=== PATIENT | female | born 1955 | race Caucasian/White ===

== ENCOUNTER → 2018-04-25 08:44 | Outpatient (CLI) | payer OTHER, SELFPAY | PROVIDERS: PCP Nurse Practitioner; Visit Provider Nurse Practitioner | DX: Z78.0 Asymptomatic menopausal state (principal) | CPT/HCPCS: 77080 ==

== ENCOUNTER → 2020-04-29 10:14 | Outpatient (CLI) | payer OTHER, SELFPAY ==
--- NOTE | 2020-04-29 10:17 | BI_ITS ---
MAMMOGRAPHY - BILATERAL SCREENING REASON FOR EXAM: Female, 64 years old. Routine annual screening examination. PERTINENT HISTORY: Aunt with breast cancer. Chronic right nipple inversion. TECHNIQUE: Digital bilateral breast laure (3D mammographic acquisition) in the CC and MLO projections. 2-D mediolateral oblique (MLO) and craniocaudad (CC) views of both breasts were obtained. CAD: Full Field Digital Mammography with Computer Added Detection was performed. COMPARISON: Comparison is made with prior outside examination dated 09/22/2015. FINDINGS: Breast Composition: The breasts are extremely dense, which lowers the sensitivity of mammography. There are no dominant masses or suspicious calcifications. No other significant abnormalities are identified. There has been no significant change since the prior study. BI/SCREEN MAMM (CAD) W/LAURE BILAT IMPRESSION: Stable bilateral screening mammogram. Yearly follow-up mammogram recommended. (A) ASSESSMENT CATEGORY: BIRADS Category 1: Negative. A letter regarding these results will be sent to the patient by the facility within 30 days. Approximately 10% of breast cancers are not detected by mammography. A normal mammogram should not delay biopsy of a clinically suspicious abnormality. [id number] Electronically Signed: Chino Ho, at 14:39 EDT , Service support ,
--- NOTE | 2020-04-29 10:20 | BD_ITS ---
STUDY: DUAL ENERGY X-RAY ABSORPTIOMETRY / DXA REASON FOR EXAM: Female, 64 years old. MANAGER VIDEO -- TAKES SYNTHROID -- TAKES CALCIUM + MULTIVITAMIN -- DOES HIGH AMOUNT OF EXERCISE -- FAMILY HX OF OSTEO- MOTHER -- NO YOU TECHNIQUE: Bone Mineral Density (BMD) measurements of lumbar spine and bilateral hips were obtained. COMPARISON: Comparison is made with prior examination dated 04/25/2018. FINDINGS: Lumbar Spine (L1-L4): g/cm2 (0.996) / T-score (-1.4) / Z-score (0.0) Findings are suggestive of osteopenia with a low fracture risk. Left Femur Total: g/cm2 (0.929) / T-score (-0.6) / Z-score (0.4) Left Femoral Neck: g/cm2 (1.006) / T-score (-0.2) / Z-score (1.1) Right Femur Total: g/cm2 (0.812) / T-score (-1.6) / Z-score (-0.5) Right Femoral Neck: g/cm2 (0.824) / T-score (-1.5) / Z-score (-0.2) The T-Scores on the most recent prior examination were: Lumbar Spine (L1-L4): There has been worsening of bone density since the previous examination. Left Femur Total: which represents a worsening of 6.1%. Right Femur Total: which represents a worsening of 6.3%. BD/Dexa Bone Density Study IMPRESSION: The patient is considered osteopenic as outlined below according to World Reed Organization (WHO) criteria with a moderate fracture risk. There has been worsening of bone density since the previous examination. Reference Information: The T-score is the number of standard deviations above or below the standard which is normal for young adults at their peak bone mineral density. The World Health Organization (WHO) interprets the T-scores as follows: Above -1 Normal bone density Between -1 and -2.5 Osteopenia Equal to / or below -2.5 Osteoporosis As a practical clinical guideline, osteopenia may be graded as follows: Mild -1 through -1.5 Moderate -1.6 through -2.0 Severe -2.1 through -2.4 The Z-score is the number of standard deviations above or below age-matched controls. A Z-score of less than -1.5 would be considered abnormal. References: 1. NIH Osteoporosis and Related Bone Diseases http://www.osteo.org 2. International Society for Clinical Densitometry http://www.iscd.org 3. National Osteoporosis Foundation http://www.nof.org Electronically Signed: Chino Ho, at 8:53 EDT , Service support ,
== END ==
PROVIDERS: PCP Nurse Practitioner; Referring Provider Nurse Practitioner; Visit Provider Nurse Practitioner
DX: Z12.31 Encounter for screening mammogram for malignant neoplasm of breast (principal); Z80.3 Family history of malignant neoplasm of breast; M85.80 Other specified disorders of bone density and structure, unspecified site
CPT/HCPCS: 77063; 77067; 77080

== ENCOUNTER → 2021-04-30 08:00 | Outpatient (CLI) | payer OTHER, SELFPAY ==
--- NOTE | 2021-04-30 08:02 | BI_ITS ---
MAMMOGRAPHY - BILATERAL SCREENING REASON FOR EXAM: Female, 65 years old. Routine annual screening examination. PERTINENT HISTORY: Aunt with breast cancer. Chronic inversion of the right nipple. TECHNIQUE: Digital bilateral breast laure (3D mammographic acquisition) in the CC and MLO projections. 2-D mediolateral oblique (MLO) and craniocaudad (CC) views of both breasts were obtained. CAD: Full Field Digital Mammography with Computer Added Detection was performed. COMPARISON: Comparison is made with prior study 04/29/2020. FINDINGS: Breast Composition: The breasts are extremely dense, which lowers the sensitivity of mammography. There are no dominant masses or suspicious calcifications. No other significant abnormalities are identified. There has been no significant change since the prior study. BI/SCRN MAMM (CAD)W/LAURE BILAT IMPRESSION: Stable bilateral screening mammogram. Yearly follow-up mammogram recommended. (A) ASSESSMENT CATEGORY: BIRADS Category 1: Negative. A letter regarding these results will be sent to the patient by the facility within 30 days. Approximately 10% of breast cancers are not detected by mammography. A normal mammogram should not delay biopsy of a clinically suspicious abnormality. [id number] Electronically Signed: Chino Ho MD at 8:48 EDT , Service support ,
== END ==
PROVIDERS: PCP Nurse Practitioner; Referring Provider Nurse Practitioner; Visit Provider Nurse Practitioner
DX: Z12.31 Encounter for screening mammogram for malignant neoplasm of breast (principal)
CPT/HCPCS: 77063; 77067

== ENCOUNTER 2021-11-16 05:51 | Day surgery (SDC) | payer OTHER, SELFPAY ==
[2021-11-16] VITALS (7 sets, daily range): BP systolic 100–128; BP diastolic 57–76; PULSE 56–71; RESP 14–16; TEMP 36.2–36.3; O2SAT 97–100; BMI 19.6
[2021-11-16] MEDS: Lactated Ringers 1,000 ML 15 ML IV (06:27)
--- NOTE | 2021-11-16 07:03 | PCM.HP.BLA ---
History and Physical Date of Admission: 11/16/21 65 F who presents to the office today for a positive Cologuard. She had a colonoscopy back when she was 52. She has been doing Cologuard every couple years and they have all been negative. She recently took a Cologuard and it was positive. She does not have any problems with her bowels. She goes to the bathroom every day as long she takes fiber Gummies and eats a balanced diet. She is not having any bleeding. She did have a hemorrhoidectomy multiple years ago and since then has always paid really close attention to her bowels. Her weight has been stable. She has no family history of colon cancer. She does have a family history of colon polyps. All other 16 review of systems are negative except as per in positive mentioned HPI. ROS Const Constitutional: No anorexia, fatigue, fever(s), weight change or sleep problems Eyes Eyes: No change in vision ENT ENT: Positive for hearing loss; No abnormal hearing, difficulty swallowing, tongue swelling or throat swelling Resp Respiratory: No cough or shortness of breath Cardio Cardiology: No chest pain at rest, chest pain with exertion, shortness of breath or dyspnea on exertion Gastro GI: No difficulty swallowing Genitourinary-Female: No difficulty urinating or burning urination Musc Musculoskeletal: No joint pain, joint swelling, muscle weakness or decreased muscle mass Skin Skin: No hair loss in leg, yellowing of the eye, itchy eyes, rash, skin ulcer or skin swelling Neuro Neurology: No abnormal hearing, abnormal movements, confusion, unsteady gait/balance or memory loss Psych Psychiatric: No anxiety, No confusion and No memory loss Endo Endocrine: No fatigue or weight change Aller/Imm Allergy/Immunologic: No itchy eyes, throat swelling or tongue swelling Beto/Lymp Hematologic/Lymphatic: No easy bleeding, easy bruising or enlarged lymph nodes Exam Const General: cooperative and comfortable Nutritional Appearance: average body habitus and well nourished HENAR Head: normal to inspection Ears: hearing grossly normal bilaterally Nose: external nose normal Face and sinus: normal facial exam Mouth: oral mucosae normal Throat: posterior oropharynx normal Eyes General: appearance normal, both eyes and all related structures Neck Neck: normal visual inspection Chest Chest palpation & inspection: normal inspection of the chest and normal palpation of entire chest wall Resp Effort & Inspection: normal respiratory effort Auscultation: Bilateral: Clear to Auscultation Cardio Palpation: normal PMI Rate: regular rate Rhythm: regular rhythm GI Inspection: normal to inspection Auscultation: normal bowel sounds Percussion: normal to percussion Palpation: no hepatosplenomegaly Skin General: no rashes or lesions noted Neuro General: patient alert Extrem General: normal to inspection Psych Affect: normal affect Assessment and Plan Assessment and Plan (1) Positive colorectal cancer screening using Cologuard test: Status: Acute Plan - Dr. Sandy Friend, DO: Patient does not wish to undergo a colonoscopy at this time due to the pandemic. I told her that we can reassess in 3 months. At that time if she was to have a colonoscopy to evaluate her colon I would be happy to help her at that time. If anything changes she is to call and she will be seen immediately. I have re-examined the patient. There are no clinical changes since date of exam.
--- NOTE | 2021-11-16 07:34 | OP.COLON_ITS ---
Patient Name: Ashtyn Raman Procedure Date: 11/16/2021 7:01 AM Date of : 1955 Age: 66 Procedure: Colonoscopy Indications: Screening for colorectal malignant neoplasm Providers: Du Brush DO Medicines: See the Anesthesia note for documentation of the administered medications Patient Profile: This is a 66 year old female. Refer to note in patient chart for documentation of history and physical. Last Colonoscopy: more than 10 years ago. Complications: No immediate complications. Procedure: Pre-Anesthesia Assessment: - Prior to the procedure, a History and Physical was performed, and patient medications and allergies were reviewed. The patient is competent. The risks and benefits of the procedure and the sedation options and risks were discussed with the patient. All questions were answered and informed consent was obtained. Patient identification and proposed procedure were verified by the physician in the pre-procedure area. Mental Status Examination: alert and oriented. Airway Examination: normal oropharyngeal airway and neck mobility. Respiratory Examination: clear to auscultation. CV Examination: normal. Prophylactic Antibiotics: The patient does not require prophylactic antibiotics. Prior Anticoagulants: The patient has taken no previous anticoagulant or antiplatelet agents. ASA Grade Assessment: II - A patient with mild systemic disease. After reviewing the risks and benefits, the patient was deemed in satisfactory condition to undergo the procedure. The anesthesia plan was to use moderate sedation / analgesia (conscious sedation). Immediately prior to administration of medications, the patient was re-assessed for adequacy to receive sedatives. The heart rate, respiratory rate, oxygen saturations, blood pressure, adequacy of pulmonary ventilation, and response to care were monitored throughout the procedure. The physical status of the patient was re-assessed after the procedure. After I obtained informed consent, the scope was passed under direct vision. Throughout the procedure, the patient's blood pressure, pulse, and oxygen saturations were monitored continuously. The colonoscope was introduced through the anus and advanced to the cecum, identified by appendiceal orifice and ileocecal valve. The colonoscopy was performed without difficulty. The patient tolerated the procedure well. The quality of the bowel preparation was good. Moderate Sedation: Moderate (conscious) sedation was administered by the endoscopy nurse and supervised by the endoscopist. The patient's oxygen saturation, heart rate, blood pressure and response to care were monitored. Total physician intraservice time was 15 minutes. Scope In: 7:12:10 AM Scope Out: 7:29:28 AM Total Procedure Duration Time 0 hours 17 minutes 18 seconds Findings: The perianal and digital rectal examinations were normal. The exam was otherwise without abnormality on direct and retroflexion views. Impression: - The examination was otherwise normal on direct and retroflexion views. - No specimens collected. Recommendation: - Discharge patient to home. - Resume previous diet. - Continue present medications. - Repeat colonoscopy in 10 years for screening purposes. - Return to primary care physician. Procedure Code(s): --- Professional --- G0121, Colorectal cancer screening; colonoscopy on individual not meeting criteria for high risk 35689, 59, Moderate sedation services provided by the same physician or other qualified health youth care professional performing the diagnostic or therapeutic service that the sedation supports, requiring the presence of an independent trained observer to assist in the monitoring of the patient's level of consciousness and physiological status; initial 15 minutes of intraservice time, patient age 5 years or older CPT copyright 2017 [employer]. All rights reserved. The codes documented in this report are preliminary and upon sitecore developer review may be revised to meet current compliance requirements. Du Brush DO 11/16/2021 7:33:35 AM This report has been signed electronically. Number of Addenda: 1 Note Initiated On: 11/16/2021 7:01 AM Addendum Number: 1 Addendum Date: 06/02/2022 6:31:47 AM MAC was used as sedation for this procedure. Du Brush DO 06/02/2022 6:31:51 AM This report has been signed electronically.
--- NOTE | 2021-11-16 07:35 | OP.CCLET_ITS ---
06/02/2022 Julieta Allen, CEM [address] [place] [address] Re : Colonoscopy procedure for Ashtyn Raman Dear Ms. Allen This procedure was performed on Tuesday, November 16, 2021. My impressions and recommendations are as follows: Impressions : - The examination was otherwise normal on direct and retroflexion views. - No specimens collected. Recommendations : - Discharge patient to home. - Resume previous diet. - Continue present medications. - Repeat colonoscopy in 10 years for screening purposes. - Return to primary care physician. My findings are described in the full procedure note, which is enclosed. If I can be of further assistance, please feel free to contact me at . Sincerely, Du Brush, 11/16/2021 7:33:35 AM This report has been signed electronically.
== END 2021-11-16 23:59 | disposition home or self-care (01) ==
LOC: EN 05:52 → AC 05:53
PROVIDERS: PCP Nurse Practitioner; Referring Provider Nurse Practitioner; Visit Provider Internal Medicine Gastroenterology
PROC: 0DJD8ZZ Inspection of Lower Intestinal Tract, Via Natural or Artificial Opening Endoscopic (ICD-10-PCS; CPT 45378; principal; 2021-11-16 06:55)
DX: Z12.11 Encounter for screening for malignant neoplasm of colon (principal)
CPT/HCPCS: 45380; J7120; J2405

== ENCOUNTER 2022-03-09 15:15 | Emergency (ER) | payer OTHER, SELFPAY ==
[2022-03-09 15:15] VITALS: BP 121/77; PULSE 57; RESP 16; TEMP 36.6; O2SAT 99; BMI 24.5
--- NOTE | 2022-03-09 15:27 | EKG12_ITS ---
Test Reason : BACK Blood Pressure : / mmHG Vent. Rate : 063 BPM Atrial Rate : 063 BPM P-R Int : 162 ms QRS Dur : 076 ms QT Int : 416 ms P-R-T Axes : 039 054 055 degrees QTc Int : 425 ms Normal sinus rhythm Normal ECG Confirmed by ROHIT CHASE, EMILY ([id number]), pictures editor MERY TAFOYA ([id number]) on 03/11/2022 9:04:39 AM Referred By: REBECCA/STAN Confirmed By:EMILY BEE MD
--- NOTE | 2022-03-09 15:27 | CT_ITS ---
ACR Level 3 findings have been noted. An addendum which confirms receipt of the report will follow. EXAM: CT CHEST, ABDOMEN AND PELVIS WITHOUT INTRAVENOUS CONTRAST CLINICAL INDICATION: back pain TECHNIQUE: Helically acquired images were obtained of the chest, abdomen and pelvis without intravenous contrast. This CT exam was performed using one or more of the following dose reduction techniques: automated exposure control, adjustment of the mA and/or kV according to patient size, and/or use of iterative reconstruction technique. This report was created using Auto [employer] report generation technology. RADIATION DOSE: CTDIvol = 7.14 mGy, DLP = 614.12 mGy-cm COMPARISON: None. FINDINGS: CHEST: LUNGS AND PLEURAL SPACES: There is a 3.6 mm right upper lobe nodule. SE:2 IM: 31. ACR Lung CT Screening Reporting T Data System (Lung-RADS) score: 2S - Benign Appearance or Behavior. Additional clinically significant or potentially clinically significant findings are described. Recommend continued annual screening with low-dose CT (LDCT) in 12 months. There is a 42 x 38 mm right middle lobe mass. SE: 2 IM: 72. This is concerning for neoplasm. ACR Lung CT Screening Reporting T Data System (Lung-RADS) score: 4XS - Very Suspicious. There are features or imaging findings that increase the suspicion of malignancy and additional clinically significant or potentially clinically significant findings described in this report. Recommend chest CT with or without contrast, PET/CT and/or tissue sampling depending on the probability of malignancy and comorbidities. PET/CT may be used when there is a >=8 mm solid component. For new large nodules that develop on an annual repeat screening CT, a 1 month LDCT may be recommended to address potentially infectious or inflammatory conditions. No pleural effusion or thickening. No pneumothorax. HEART: Unremarkable. Heart size is normal. No pericardial effusion. No significant coronary artery calcifications. MEDIASTINUM: Calcified mediastinal lymph nodes. Esophagus is unremarkable. No hiatal hernia. THYROID: Unremarkable. No thyroid lesions. ABDOMEN: LIVER: Unremarkable. Homogeneous. GALLBLADDER AND BILE DUCTS: Unremarkable. No calcified gallstones. No gallbladder distention or wall edema. No intra- or extrahepatic biliary ductal dilation. PANCREAS: Unremarkable. No focal cystic mass. SPLEEN: Unremarkable. Normal size without focal cystic or solid mass. ADRENALS: Unremarkable. No nodules. KIDNEYS AND URETERS: Unremarkable. Normal renal size and position. No hydronephrosis. STOMACH AND BOWEL: Unremarkable. No stomach or bowel distention. No focal inflammatory change. PELVIS: APPENDIX: No evidence of acute appendicitis. BLADDER: Unremarkable. REPRODUCTIVE: Unremarkable as visualized. No mass. CHEST, ABDOMEN and PELVIS: INTRAPERITONEAL SPACE: Trace free fluid in the pelvis. The source is not identified. No free air. BONES/JOINTS: Pathologic fracture of T12 with less than 50% compression. There may be mass extending into the spinal canal which may be causing spinal stenosis and anteriorly. But this is hard to assess due to lack of contrast. This can be better assessed with MRI of the spine with contrast. Grade 1 anterolisthesis of L3 on L4. No suspicious lytic or blastic abnormality. SOFT TISSUES: Unremarkable. No discrete abdominal or pelvic wall hernia. VASCULATURE: Unremarkable. Aorta is non-dilated. LYMPH NODES: See above. CT/CT Chest, Abd, Pelvis WO Cont IMPRESSION: 1. There is a 3.6 mm right upper lobe nodule. SE:2 IM: 31. ACR Lung CT Screening Reporting T Data System (Lung-RADS) score: 2S - Benign Appearance or Behavior. Additional clinically significant or potentially clinically significant findings are described. Recommend continued annual screening with low-dose CT (LDCT) in 12 months. 2. There is a 42 x 38 mm right middle lobe mass. SE: 2 IM: 72. This is concerning for neoplasm. ACR Lung CT Screening Reporting T Data System (Lung-RADS) score: 4XS - Very Suspicious. There are features or imaging findings that increase the suspicion of malignancy and additional clinically significant or potentially clinically significant findings described in this report. Recommend chest CT with or without contrast, PET/CT and/or tissue sampling depending on the probability of malignancy and comorbidities. PET/CT may be used when there is a >=8 mm solid component. For new large nodules that develop on an annual repeat screening CT, a 1 month LDCT may be recommended to address potentially infectious or inflammatory conditions. 3. Pathologic fracture of T12 with less than 50% compression. There may be mass extending into the spinal canal which may be causing spinal stenosis and anteriorly. But this is hard to assess due to lack of contrast. This can be better assessed with MRI of the spine with contrast. 4. Trace free fluid in the pelvis. The source is not identified. Non standard communication findings protocol was initiated. Electronically Signed: Emigdio Boogie MD at 16:44 EDT ,
[2022-03-09] MEDS: Ondansetron 4 MG/2 ML Vial IV (15:42)
[2022-03-09] MEDS: Morphine 4 MG/ML Syringe IV ×2 (15:42→20:08)
[2022-03-09 15:48] LABS: Absolute Lymphocyte Count 1.17 X10^3/uL (0.83-4.51); Absolute Neutrophil Count 6.3 X10^3/uL (2.0-7.7); Basophil# 0.06 X10^3/uL; Basophil% 0.7 % (0-1); Eosinophil# 0.13 X10^3/uL; Eosinophils% 1.6 % (0-5); Hematocrit 43.3 % (37-47); Hemoglobin 14.8 g/dL (12.0-15.0); Lymphocyte # 1.17 X10^3/ul (0.83-4.51); Lymphocyte % 14.6 % (19-41); Mean Corp Hgb Conc 34.2 g/dL (32-36); Mean Corpuscular Hgb 32.3 pg (27.0-32.0); Mean Corpuscular Volume 94.5 fL (81-99); Mean Platelet Vol. 8.9 fl (6.2-12.0); Monocyte# 0.39 X10^3/uL; Monocyte% 4.9 % (0-10); NRBC Flagged by Analyzer 0 % (0-5); Neutrophil # 6.26 X10^3/uL (2.7-7.7); Neutrophil % 77.8 % (47-70); Platelet Count 371 K/mm3 (150-450); RBC Distribution Width CV 12.2 % (11.6-14.6); RBC Distribution Width SD 42.7 fl (35.1-43.9); Red Blood Count 4.58 M/mm3 (4.2-5.4)
[2022-03-09 16:10] LABS: ALB/GLOB Ratio 1.1 RATIO (0.9-2.4); AST(SGOT) 29 U/L (15-37); Alanine Aminotransfer ALT/SGPT 24 U/L (13-56); Albumin, Serum 3.9 g/dL (3.2-5.0); Alkaline Phosphatase 59 U/L (45-117); Anion Gap 9 (5-15); BUN 11 mg/dL (7-18); BUN/Creat Ratio 12.1 RATIO (10-20); Calcium,Total 9.2 mg/dL (8.5-10.1); Chloride 96 mmol/L (98-107); Creatinine, Serum 0.91 mg/dL (0.55-1.02); EST Glomerular Filtration Rate 66 mL/min (>60); Est Glom Filt Rate - Afr Amer 80 mL/min (>60); Estimated Creatinine Clearance 53.93 ml/min; Globulin 3.5 g/dL (2.2-4.2); Glucose 99 mg/dL (74-106); Potassium 4.4 mmol/L (3.5-5.1); Protein, Total 7.4 g/dL (6.4-8.2); Sodium Level 130 mmol/L (136-145)
[2022-03-09] MEDS: dexAMETHasone 10 MG/ML Vial IV (18:00)
[2022-03-09] MEDS: diazePAM 2 MG Tablet PO (18:16)
[2022-03-09 19:35] VITALS: BP 130/69; PULSE 61; RESP 18; TEMP 36.2; O2SAT 97
--- NOTE | 2022-03-09 22:00 | EDS_ITS ---
HPI History of Present Illness Chief Complaint: Back Narrative Narrative: 66-year-old female presenting with back pain. She describes it as a center of her back. She states has been having back problems for about a year the never really been that bad. She states that for the last couple of months has been experiencing more pain. She denies any trauma. She has not seen her primary care physician. She is seen chiropractics and she is also had soft tissue massage and none of these are helping. She denies loss of bladder or bowel control. She denies saddle anesthesia. Up until today she was walking without difficulty but most the day she has had to lay down due to the pain in the middle lower back. She denies paresthesias but is complaining of spasms mostly in the back radiating to her legs. She also states that at times the pain radiates around her lower ribs. No fever, chills. [facility]SH [facility] Medical History Former smoker History of UTI Leg cramps Multinodular goiter Post-menopausal Thyroid disease Tinnitus Wears contact lenses Wears glasses Home Medications levothyroxine 137 mcg tablet (Synthroid) 137 mcg PO MOTUTHFRSA 05/26/21 [History Last Taken 03/09/22] M 11/12/21 [History Last Taken Unknown] Pterospilbene 11/12/21 [History Last Taken Unknown] Allergy/AdvReac Type Severity Reaction Status Date / Time nickel Allergy Intermediate Swelling Verified 03/09/22 15:17 sulfamethoxazole Allergy Intermediate lip Verified 03/09/22 15:17 [From Bactrim] swelling trimethoprim [From Bactrim] Allergy Intermediate lip Verified 03/09/22 15:17 swelling thimerosal Allergy Swelling Verified 03/09/22 15:17 Surgical History History of hemorrhoidectomy History of thyroidectomy Hx of knee surgery Social History Smoking Status: Former smoker ROS ROS ED Constitutional Constitutional ED: Denies chills or fever(s) Eyes Eyes: Denies change in vision ENT ENT ED: Denies rhinorrhea Cardiovascular Cardiovascular: Reports chest pain; Denies palpitations Respiratory/Chest Respiratory/Chest: Denies dyspnea or dyspnea on exertion Gastrointestinal Gastrointestinal: Denies abdominal pain or constipation Genitourinary Genitourinary ED: Denies dysuria or hematuria Musculoskeletal Musculoskeletal: Reports back pain Integumentary Denies abscess or Abrasions Neurologic Neurologic: Denies headache(s) or paresthesias Psychiatric Psychiatric: Denies anxiety or depression EXAM Physical Exam Const Vital Signs: 03/09/22 15:15 03/09/22 19:35 Temperature 97.8 F 97.1 F L Temperature Source Temporal Temporal Pulse Rate 57 L 61 Respiratory Rate 16 18 Blood Pressure 121/77 H 130/69 H Blood Pressure Mean 91 89 Pulse Ox 99 97 Oxygen Delivery Method Room Air Room Air Positive well nourished General Appearance ED: NAD; Negative for pallor HEENT Reports moist mucous membranes Eyes PERRL and EOMs intact bilaterally Neck no lymphadenopathy Resp normal respiratory effort and clear to auscultation bilaterally Cardio regular rate and regular rhythm GI normal to inspection, nondistended, normoactive bowel sounds Back/Spine Back/Spine Narrative: Tenderness to palpation of the midline spine approximately T11-T12. No bruising, rash. Neuro oriented x3 and no sensory deficits noted Sensorium / Orientation: alert Motor Exam: strength 5/5 throughout Deep Tendon Reflexes: Rt Patellar (L4): 2+ and Lt Patellar (L4): 2+ Deep Tendon Reflexes Back: Rt Patellar (L4): 2+ and Lt Patellar (L4): 2+ Psych mental status grossly normal Attitude: No agitated Skin no rashes or lesions noted General Skin Exam: Negative for jaundice or pallor MDM MDM MDM Narrative Medical decision making narrative: 66-year-old female presenting with back pain. She has not had any imaging as of yet. I did give her morphine and Zofran and obtain lab work. Her CBC and BMP are fairly unremarkable with exception of a sodium of 130. I did perform an EKG due to the location of the pain and on my interpretation this is a normal sinus rhythm with ventricular rate of 63 bpm without sign of ischemic change or dysrhythmia. High-sensitivity troponin is negative. Because the patient was unable to stand and ambulate I did send her to CT of his chest abdomen pelvis. CT of the chest abdomen pelvis shows new masses in the right upper lung and right midlung.Patient has no history of cancer.Pathologic fracture of T12 with less than 50% compression. There may be mass extending into the spinal canal which may be causing spinal stenosis and anteriorly. Patient was given dexamethasone 10 mg IV and also given diazepam 2 mg p.o. I spoke with [facility] as the patient initially wanted to go to [facility] for her care because she states her pain friend had great care at [facility]. I spoke with the transfer line at [facility] and they did reach out to their physicians to try to arrange transport. In the interim I spoke with heme-onc and was told by them I think they could manage the radiation therapy here if she needed it but recommended an MRI and admission. I did attempt to admit the patient to the hospitalist however this point the hospital stated that they do not have surgical backup but I would need to talk to an orthopedist. I spoke with Dr. Mims who stated that he does not really do oncology related orthopedics. He recommended transfer. At this point the patient changed her mind from [facility] and wanted to go to [facility]. Discussed the case at length with the neurosurgeon Dr. Lazo who then referred me to the medicine attending Dr. Berg and I did review this again with Dr. Berg. Accepted transport. Patient required more pain medication and she was given for morphine. I discussed with her that there may be a delay in transport if we cannot get a bed and she is amenable to waiting for transport and leaving clinic. She does not have any signs of cauda equina syndrome or any red flag signs or symptoms. She does need probably radiation therapy and neurosurgical consult and oncology consult. Patient remained stable in ER. She will be transported with a bed assignment as available. Impression: 1. T 12 pathologic compression fracture 2. Lung mass right upper lobe 3. Lung mass right middle lobe 4. Hyponatremia Lab Data Attestation: I reviewed the patient's lab results. Labs: Laboratory Results - last 24 hr 03/09/22 03/09/22 15:35 15:35 WBC 8.0 RBC 4.58 Hgb 14.8 Hct 43.3 MCV 94.5 MCH 32.3 H MCHC 34.2 RDW Std Deviation 42.7 RDW Coeff of [place] 12.2 Plt Count 371 MPV 8.9 Immature Gran % (Auto) 0.400 Neut % (Auto) 77.8 H Lymph % (Auto) 14.6 L [place] % (Auto) 4.9 Eos % (Auto) 1.6 Baso % (Auto) 0.7 Absolute Neuts (auto) 6.3 Absolute Lymphs (auto) 1.17 Nucleated RBC % 0 Sodium 130 L Potassium 4.4 Chloride 96 L Carbon Dioxide 25.0 Anion Gap 9 BUN 11 Creatinine 0.91 Estim Creat Clear Calc 53.93 Est GFR (MDRD) Af Amer 80 Est GFR (MDRD) Non-Af 66 BUN/Creatinine Ratio 12.1 Glucose 99 Calcium 9.2 Total Bilirubin 0.90 AST 29 ALT 24 Alkaline Phosphatase 59 Total Protein 7.4 Albumin 3.9 Globulin 3.5 Albumin/Globulin Ratio 1.1 Radiography Diagnostic Testing: Clinical Impression(s) from Imaging Studies Chest/Abdomen/Pelvis CT 03/09/22 15:27 IMPRESSION: 1. There is a 3.6 mm right upper lobe nodule. SE:2 IM: 31. ACR Lung CT Screening Reporting T Data System (Lung-RADS) score: 2S - Benign Appearance or Behavior. Additional clinically significant or potentially clinically significant findings are described. Recommend continued annual screening with low-dose CT (LDCT) in 12 months. 2. There is a 42 x 38 mm right middle lobe mass. SE: 2 IM: 72. This is concerning for neoplasm. ACR Lung CT Screening Reporting T Data System (Lung-RADS) score: 4XS - Very Suspicious. There are features or imaging findings that increase the suspicion of malignancy and additional clinically significant or potentially clinically significant findings described in this report. Recommend chest CT with or without contrast, PET/CT and/or tissue sampling depending on the probability of malignancy and comorbidities. PET/CT may be used when there is a >=8 mm solid component. For new large nodules that develop on an annual repeat screening CT, a 1 month LDCT may be recommended to address potentially infectious or inflammatory conditions. 3. Pathologic fracture of T12 with less than 50% compression. There may be mass extending into the spinal canal which may be causing spinal stenosis and anteriorly. But this is hard to assess due to lack of contrast. This can be better assessed with MRI of the spine with contrast. 4. Trace free fluid in the pelvis. The source is not identified. Non standard communication findings protocol was initiated. Electronically Signed: Emigdio Boogie MD at 16:44 EDT , ADDENDUM: 03/09/22 1709 IMPRESSION: 1. There is a 3.6 mm right upper lobe nodule. SE:2 IM: 31. ACR Lung CT Screening Reporting T Data System (Lung-RADS) score: 2S - Benign Appearance or Behavior. Additional clinically significant or potentially clinically significant findings are described. Recommend continued annual screening with low-dose CT (LDCT) in 12 months. 2. There is a 42 x 38 mm right middle lobe mass. SE: 2 IM: 72. This is concerning for neoplasm. ACR Lung CT Screening Reporting T Data System (Lung-RADS) score: 4XS - Very Suspicious. There are features or imaging findings that increase the suspicion of malignancy and additional clinically significant or potentially clinically significant findings described in this report. Recommend chest CT with or without contrast, PET/CT and/or tissue sampling depending on the probability of malignancy and comorbidities. PET/CT may be used when there is a >=8 mm solid component. For new large nodules that develop on an annual repeat screening CT, a 1 month LDCT may be recommended to address potentially infectious or inflammatory conditions. 3. Pathologic fracture of T12 with less than 50% compression. There may be mass extending into the spinal canal which may be causing spinal stenosis and anteriorly. But this is hard to assess due to lack of contrast. This can be better assessed with MRI of the spine with contrast. 4. Trace free fluid in the pelvis. The source is not identified. Non standard communication findings protocol was initiated. N.B. : Steve Salgado MD, confirmed on 03/09/2022 17:02:38 (ET) that the healthcare facility has received the radiology report. Electronically Signed: Emigdio Boogie MD at 16:44 EDT , Discharge Plan Triage Chief Complaint: Back ED Provider: Steve Ward Dx/Rx/DC Orders Prescriptions: No Action levothyroxine [Synthroid] 137 mcg tablet 137 mcg PO MOTUTHFRSA (DME) M (DME) Pterospilbene Primary Care Provider: Julieta Allen INTERNATIONAL MARKETING COORDINATOR Referrals: Julieta Allen NP, INTERNATIONAL MARKETING COORDINATOR-C [Primary Care Provider] -
[2022-03-10] VITALS (7 sets, daily range): BP systolic 107–148; BP diastolic 63–78; PULSE 58–73; RESP 14–18; O2SAT 94–99
--- NOTE | 2022-03-10 03:56 | ED.RN ---
patient is accepted at [facility], we are still waiting on a bed assignment, the patient was accepted at 7:45pm.
--- NOTE | 2022-03-10 04:01 | ED.RN ---
THE ACCEPTING DOCTOR IS DR. GUERO JAMES, INTERNAL MEDICINE
[2022-03-10] MEDS: Ondansetron 4 MG/2 ML Vial IV (05:23)
[2022-03-10] MEDS: Morphine 4 MG/ML Syringe IV ×3 (05:26→13:28)
[2022-03-10] MEDS: diazePAM 2 MG Tablet PO (07:07)
--- NOTE | 2022-03-10 08:00 | MRI_ITS ---
STUDY: MRI THORACIC SPINE WITH AND WITHOUT CONTRAST REASON FOR EXAM: Female, 66 years old. pain, F/U ABNORMAL CT TECHNIQUE: IV 13cc dotarem was administered for the contrast portion of the examination. COMPARISON: None. FINDINGS: Normal kyphosis of the thoracic spine. There is no substantial scoliosis. T1-2, T2-3, T3-4, T4-5, T5-6, T6-7, T7-8, T8-9, T9-10, T10-11, T11-12: Normal endplates. Normal disc hydration, heights and morphology of the corresponding intervertebral discs. Normal central canal and intervertebral neural foramina at the corresponding levels. There is an acute mild wedge compression fracture of the T7 vertebral body with 5 mm retropulsion of the endplate into the spinal canal producing moderate spinal stenosis with abutment of the spinal cord but CSF behind the cord. There is complete marrow replacement of the vertebral body with irregular contrast enhancement possibly consistent with pathologic compression fracture. However, other marrow replacing lesions are not identified in thoracic spine. Bone scan would be useful. Normal visualized thoracic cord. Normal conus medullaris that terminates at the L1.. The soft tissue structures are unremarkable. There is no enhancing abnormality. MRI/Spine Thoracic W/WO Contrast IMPRESSION: Suspect acute mild pathologic compression fractures of the T7 vertebral bodies of what 5 mm retropulsion into the spinal canal producing moderate spinal stenosis with abutment of the central spinal cord. Correlation with bone scan would be useful to evaluate further bone lesions. Electronically Signed: Tashi Noland MD at 10:59 EDT ,
--- NOTE | 2022-03-10 08:00 | MRI_ITS ---
STUDY: MRI LUMBAR SPINE WITH AND WITHOUT CONTRAST REASON FOR EXAM: Female, 66 years old. pain TECHNIQUE: Standardized fat and water weighted pulse sequences were obtained in the sagittal and axial planes. 13 CC IV DOTAREM was administered for the contrast portion of the examination. COMPARISON: None FINDINGS: T12-L1: Normal endplates. Normal disc height, hydration and morphology. Normal bilateral facet joints. Normal central canal and bilateral lateral recesses. Normal bilateral intervertebral neural foramina. Normal lumbar lordosis. There is no substantial scoliosis. Normal conus medullaris that terminates at the L1. L1-2: Normal endplates. Normal disc height, hydration and morphology. Normal bilateral facet joints. Normal central canal and bilateral lateral recesses. Normal bilateral intervertebral neural foramina. L2-3: Small right paracentral and foraminal disc protrusion reduces mild right lateral recess stenosis and mild right neural foraminal stenosis. L3-4: Mild bilateral facet hypertrophy and ligament flavum hypertrophy with fluid of facet joints consistent with instability. 2 mm of anterolisthesis of L3 on L4 with a mild bilobed disc protrusion produces mild spinal stenosis and moderate bilateral neural foraminal stenosis. L4-5: Annular tear of the left foraminal portion of the disc but no disc protrusion, spinal stenosis, or neural foraminal stenosis. L5-S1: Normal endplates. Normal disc height, hydration and morphology. Normal bilateral facet joints. Normal central canal and bilateral lateral recesses. Normal bilateral intervertebral neural foramina. Normal visualized sacral ala. Normal visualized paraspinous soft tissue structures. There is no demonstrated abnormal enhancement. MRI/Spine Lumbar W/WO Contrast IMPRESSION: Multilevel degenerative changes, as described above. No MR evidence of metastatic disease. Electronically Signed: Tashi Noland MD at 11:03 EDT ,
--- NOTE | 2022-03-10 09:42 | NURSING ---
[facility] H 70 ROOM 23 NURSE TO NURSE [phone] JACOB MEHTA, TRANSFER LINE
--- NOTE | 2022-03-10 09:59 | NURSING ---
CALLED [facility], ETA IS 2 HRS
--- NOTE | 2022-03-10 13:50 | ED.RN ---
Patients transfer form has listed that patient is going to [facility]. Patients Spouse was informed patient was being transferred to [facility]. Physicians ambulance dispatched called back questioning where patient was being transferred to. Facility number listed on transfer form called by this RN. BRANDON Johnson confirmed they are expecting patient at [facility]. Dispatched made aware of confusion at this time. No further questions at this time.
== END 2022-03-10 13:41 | disposition short-term general hospital (02) ==
LOC: ED 16:07
PROVIDERS: Emergency Provider Student in an Organized Health Care Education/Training Program; PCP Nurse Practitioner; Visit Provider Student in an Organized Health Care Education/Training Program
DX: M84.48XA Pathological fracture, other site, initial encounter for fracture (principal); E87.1 Hypo-osmolality and hyponatremia; J34.89 Other specified disorders of nose and nasal sinuses; R07.81 Pleurodynia; R91.8 Other nonspecific abnormal finding of lung field; Z87.891 Personal history of nicotine dependence; X58.XXXA Exposure to other specified factors, initial encounter
CPT/HCPCS: 71250; 72157; 72158; 74176; 80053; 85025; 87811; 93005; 96361; 96374; 96375; 96376; 99285; A9575; J7040; A4216; J2405

== ENCOUNTER → 2022-05-20 | Outpatient (CLI) | payer OTHER, SELFPAY ==
--- NOTE | 2022-05-20 14:31 | BI_ITS ---
MAMMOGRAPHY - BILATERAL SCREENING REASON FOR EXAM: Female, 66 years old. Routine annual screening examination. PERTINENT HISTORY: Aunt with breast cancer. Chronic right nipple inversion. TECHNIQUE: Digital bilateral breast laure (3D mammographic acquisition) in the CC and MLO projections. 2-D mediolateral oblique (MLO) and craniocaudad (CC) views of both breasts were obtained. CAD: Full Field Digital Mammography with Computer Added Detection was performed. COMPARISON: Comparison is made with prior study 04/30/2021 and 04/29/2020. FINDINGS: Breast Composition: The breasts are extremely dense, which lowers the sensitivity of mammography. There are no dominant masses or suspicious calcifications. No other significant abnormalities are identified. There has been no significant change since the prior study. BI/SCRN MAMM (CAD)W/LAURE BILAT IMPRESSION: Stable bilateral screening mammogram. Yearly follow-up mammogram recommended. (A) ASSESSMENT CATEGORY: BIRADS Category 1: Negative. A letter regarding these results will be sent to the patient by the facility within 30 days. Approximately 10% of breast cancers are not detected by mammography. A normal mammogram should not delay biopsy of a clinically suspicious abnormality. [id number] Electronically Signed: Chino Ho MD at 15:23 EDT ,
--- NOTE | 2022-05-20 14:37 | BD_ITS ---
STUDY: DUAL ENERGY X-RAY ABSORPTIOMETRY / DXA REASON FOR EXAM: Female, 66 years old. OSTEO. The patient is status post menopausal. TECHNIQUE: Bone Mineral Density (BMD) measurements of lumbar spine and bilateral hips were obtained. COMPARISON: Comparison is made with prior study dated 04/29/2020. FINDINGS: Lumbar Spine (L1-L4): g/cm2 (0.910) / T-score (-1.2) / Z-score (0.5) Findings are suggestive of osteopenia with a low fracture risk. Left Femur Total: g/cm2 (0.844) / T-score (-0.8) / Z-score (0.4) Left Femoral Neck: g/cm2 (0.861) / T-score (0.1) / Z-score (1.6) Right Femur Total: g/cm2 (0.758) / T-score (-1.5) / Z-score (-0.3) Right Femoral Neck: g/cm2 (0.631) / T-score (-2.0) / Z-score (-0.5) The T-Scores on the most recent prior examination were: Lumbar Spine (L1-L4): There has been worsening of bone density since the previous examination. Left Femur Total: which represents a worsening of 2.5%. Right Femur Total: which represents an improvement of 0.9%. BD/Dexa Bone Density Study IMPRESSION: The patient is considered osteopenic as outlined below according to World Reed Organization (WHO) criteria with a moderate fracture risk. There has been worsening of bone density since the previous examination. Reference Information: The T-score is the number of standard deviations above or below the standard which is normal for young adults at their peak bone mineral density. The World Health Organization (WHO) interprets the T-scores as follows: Above -1 Normal bone density Between -1 and -2.5 Osteopenia Equal to / or below -2.5 Osteoporosis As a practical clinical guideline, osteopenia may be graded as follows: Mild -1 through -1.5 Moderate -1.6 through -2.0 Severe -2.1 through -2.4 The Z-score is the number of standard deviations above or below age-matched controls. A Z-score of less than -1.5 would be considered abnormal. References: 1. NIH Osteoporosis and Related Bone Diseases www osteo.org 2. International Society for Clinical Densitometry www iscd.org 3. National Osteoporosis Foundation www nof.org Electronically Signed: Chino Ho MD at 12:18 EDT ,
== END | disposition home or self-care (01) ==
LOC: OPBD 14:28
PROVIDERS: PCP Internal Medicine; Referring Provider Obstetrics & Gynecology; Visit Provider Obstetrics & Gynecology
DX: Z12.31 Encounter for screening mammogram for malignant neoplasm of breast (principal); Z78.0 Asymptomatic menopausal state; M85.80 Other specified disorders of bone density and structure, unspecified site
CPT/HCPCS: 77063; 77067; 77080

== ENCOUNTER 2022-11-08 10:00 | Outpatient (RCR) | payer MEDICARE, OTHER, SELFPAY ==
--- NOTE | 2022-10-20 14:23 | HP.PTEVAL ---
Patient's Visit Information IDRIS LAURENT is a 67 year old F referred to Physical Therapy by RADHA SLATER with a diagnosis of Thoracic Spine fusion 08/11/22. Date of Evaluation: 10/20/22 Physical Therapist: Emigdio Wick, PT, ATC - Visit Plan Frequency: 1x/Week Duration: 2 Weeks Plan: Issue and instruct pt on HEP of core and scap strengthening - Subjective DOS: 08/11/22. Pt reports she had a T/S fusion performed at that time. 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 Pt notes she had the fusion from T6-T9 performed at that time. Pt reports it was also discovered at that time that she has a cancer spot on her R lung which she notes is what caused her to have her vertebral cancer. Pt notes she has been receiving an oral drug regimen in order to treat that condition which appears to be working fine at this time. Pt reports she is now 10 weeks post op and is dong well at this time. Pt notes she has no sleep difficulty at this time secondary to pain. Pt notes she has to rest twice per day in order to decrease pain. Pt reports she has no restrictions at this time. Pt reports she is able to walk a mile a day until she is fatigued. Pt reports her goal is to be able to garden again. Pt currently rates her pain at 2/10 while at rest, but increases to 7/10 at worst (when she is up and moving a lot) - Pain T/S fusion Pain Intensity (Out of 10): 2 Pain Intensity Range: 7 - Objective Neuro: B LE sensation is WNL to light touch. B patellar reflex= 1/3. ROM: Pt is moderately limited throughout. LE MMT: B LE's are grossly 4/5 throughout. Core strength: Pt displays sig knee valgus with forward squatting activity - Balance/Special Test Scores Oswestry Low Back Score: 7 - Goals Goal 1:: I with HEP 2 visits Goal Time Frame: 2 Weeks Goal 2:: Increase core stability x 1 grade to aid with decreasing back pain Goal Time Frame: 4-6 Weeks - Rehabilitation Potential Physical Therapy Diagnosis: Pt has back pain, B LE weakness, and difficulty with prolonged upright activity secondary to spinal fusion Rehabilitation Potential: Good - Anticipated Interventions Patient/Client Instruction: Educate patient on: Condition, Plan of Care For the Purpose of:: To improve self management Therapeutic Exercise to Include: Strength training, Endurance training, Dynamic Lumbar Stabilization, Scapular Strength/Stabilization For the Purpose of:: To decrease pain, To improve muscle performance and motor function Cryotherapy (ice pack, ice massage): Yes For the Purpose of:: To decrease pain Thank you for the opportunity to evaluate your patient. For Medicare and Medicare HMO plans, please review the plan of care and approve it. It will need to be FAXED BACK to us at [phone] for Medicare purposes. For Medicare only, by signing this I certify the plan of care. Please let me know if there are questions or concerns regarding this plan of care. Physician Signature: Date:
--- NOTE | 2022-12-21 13:37 | HP.PT.NRP ---
IDRIS LAURENT was seen in my office for initial evaluation on 10/20/22. The following Plan of Care was established for this patient: Initial Frequency: 1x/Week Initial Duration: 2 Weeks Patient/Client Instruction: Educate patient on: Condition, Plan of Care For the Purpose of:: To improve self management Therapeutic Exercise to Include: Strength training, Endurance training, Dynamic Lumbar Stabilization, Scapular Strength/Stabilization For the Purpose of:: To decrease pain, To improve muscle performance and motor function Cryotherapy (ice pack, ice massage): Yes For the Purpose of:: To decrease pain This patient was last seen in our office . Pertinent comments regarding their Physical therapy will appear below: Pt cancelled her last PT visit and is now discontinued at this time At this point I will be discontinuing this patient from physical therapy. I would be happy to see this patient again in the future if found appropriate by the physician. Thank you! Emigdio Wick, PT, ATC Balance/Gait/Functional tests - Balance/Special Test Scores Oswestry Low Back Score: 7
== END 2022-11-08 19:00 | disposition home or self-care (01) ==
LOC: PT 10:00
PROVIDERS: PCP Internal Medicine
DX: M43.24 Fusion of spine, thoracic region (principal)
CPT/HCPCS: 97110; 97161

== ENCOUNTER → 2023-01-20 | Outpatient (CLI) | payer MEDICARE, OTHER, SELFPAY ==
--- NOTE | 2023-01-20 13:51 | RAD_ITS ---
INDICATION: Secondary malignant neoplasm of bone EXAMINATION/TECHNIQUE: X-RAY - XR Hips Bilateral with Pelvis when performed; 2 Views COMPARISON: None. FINDINGS: PELVIC BONES: No displaced fracture, destructive or sclerotic lesions. Note that overlapping bowel shadows may however obscure fine detail. Sacroiliac joints are unremarkable. No widening of the pubic symphysis. HIPS: Mild joint space narrowing both hips. No evidence of fracture subluxation disc desiccation. There are 2 loose bodies inferior medial to the femoral neck on the left. These measure 2.5 x 3.0 and 1.2 x 1.5 cm. SOFT TISSUES: No soft tissue swelling or gas. RAD/Hips B/L min 2 views w/ Pelvis IMPRESSION: Osteoarthritis. Loose bodies within left hip joint as above. Electronically Signed: Mikhail Goldstein MD, NOELLE at 21:26 EDT ,
== END | disposition home or self-care (01) ==
PROVIDERS: PCP Internal Medicine; Referring Provider Internal Medicine; Visit Provider Internal Medicine
DX: C79.51 Secondary malignant neoplasm of bone (principal)
CPT/HCPCS: 73521

== ENCOUNTER 2023-02-01 11:00 | Outpatient (RCR) | payer MEDICARE, OTHER, SELFPAY ==
--- NOTE | 2023-01-05 10:40 | HP.PTEVAL ---
Patient's Visit Information IDRIS LAURENT is a 67 year old F referred to Physical Therapy by ELAN Crenshaw with a diagnosis of pain in rib, and L leg sciatic. Date of Evaluation: 12/30/22 Physical Therapist: Ernesto Patterson DPT - Visit Plan Frequency: 2x /Week Duration: 6 Weeks Plan: Start with core, hip strengthening and piriformis stretching in aquatic setting. Progress cardiovascular as tolerated. - Subjective Pt. is here today for her initial evaluation with diagnosis of pain in rib, and L leg sciatic with need for muscle strengthening. Pt. is overall doing okay today, but reports having increased pain in L hip at times with bending. She did have a thoracic spine fusion at the end of he last year. She is also having some pain in her bilateral distal rib area, mostly anteriorly. She reports this rib pain occurs with deep breathing and twisting/side bending. Pt. reports no N/T, but does have some pain that extends into her glute and posterior leg at times. Pt. is a very active individual and would like to get back to running activities. She has not tried much stretching for her leg. glute pain increases with bending, lifting, and outside work. Pt. has decreased pain with standing and lying down. Her rib pain as been there since her surgery on her thoracic spine, but is more point tender with palpation. - Pain L posterior hip Pain Intensity (Out of 10): 3 Pain Intensity Range: 0, 6 anterior ribs Pain Intensity (Out of 10): 1 Pain Intensity Range: 0, 4 - Objective POSTURE: Pt. has normal posture in stance. Pt. has good thoracic spine posture and normal iliac crest heights. Normal wt. shift between BLEs. PALPATION: Pt. is tender through her distal ribs, she is also tender at L piriformis and L greater trochanter. Pt. did not have much pain throughout her lumbar spine this date. NEURO: pt. has normal sensation in BLEs. Normal DTR of BLEs. Pt. is able to rise on heels and toes without issues. ROM: Pt. has good ROM throughout lumbar spine. Pt. has does some tigthness in her hip ER, but not pain, stretch felt. Pt. has normal R hip ROM noted. MMT: Pt. has 4+/5 throughout BLEs, except L hip abd 4/5, L hip Er 4/5 mild increase NW, core strength fair. GAIT: Pt. has normal gait pattern no increase in symptoms noted. - Balance/Special Test Scores Oswestry Low Back Score: 35 - Goals Goal 1:: LTG: Pt. to be I with HEP. Goal Time Frame: 4-6 Weeks Goal 2:: STG: Pt. to sleep without increase in symptoms. Goal Time Frame: 2 Weeks Goal 3:: LTG: Pt. to have increased core and BLE strength to 5/5 throughout. Goal Time Frame: 4-6 Weeks Goal 4:: LTG: Pt. to complete all recreationally activities without increase in symptoms. Goal Time Frame: 4-6 Weeks Goal 5:: LTG: Pt. to have no pain with bending, twisting, and lifting. Goal Time Frame: 4-6 Weeks - Rehabilitation Potential Physical Therapy Diagnosis: Pt. has signs and symptoms consistent with pain in rib, and L leg sciatic with need for muscle strengthening. I think she may have more of a L sided piriformis syndrome as she did not have much back pain and movement of her hip started to cause more of her symptoms. Her rib pain is also point tender suggesting less of a radicular pathology. She would benefit from PT in the aquatic setting to progress core and BLE strength as well as stretching of her L hip ER, hip abductor strengthening. Rehabilitation Potential: Excellent - Anticipated Interventions Patient/Client Instruction: Educate patient on: Condition, Plan of Care, Risk Factors, Benefits of Fitness Program For the Purpose of:: To improve decision making, To facilitate caregiver knowledge, To improve self management, To prevent re-injury, To improve ability to perform tasks related to life management, To improve tolerance to ADL's Therapeutic Exercise to Include: Strength training, Power training, Endurance training, Postural training, Flexibilty training, In an aquatic setting, Passive ROM, Active ROM For the Purpose of:: To decrease pain, To increase ROM, To improve nutrient delivery to tissue, To increase oxygenation perfusion, To improve muscle performance and motor function, To improve ability to perform ADL's, To increase tolerance to activity/condition/position, To improve performance and independence with ADL's, To decrease level of supervision to perform tasks, To improve ability of physical actions for home/community/work/leisure, To improve gait and locomotor functions, To improve health of tissue Thank you for the opportunity to evaluate your patient. For Medicare and Medicare HMO plans, please review the plan of care and approve it. It will need to be FAXED BACK to us at [phone] for Medicare purposes. For Medicare only, by signing this I certify the plan of care. Please let me know if there are questions or concerns regarding this plan of care. Physician Signature: Date:
--- NOTE | 2023-02-01 14:11 | HP.PT.NRP ---
IDRIS LAURENT was seen in my office for initial evaluation on 12/30/22. The following Plan of Care was established for this patient: Initial Frequency: 2x /Week Initial Duration: 6 Weeks Patient/Client Instruction: Educate patient on: Condition, Plan of Care, Risk Factors, Benefits of Fitness Program For the Purpose of:: To improve decision making, To facilitate caregiver knowledge, To improve self management, To prevent re-injury, To improve ability to perform tasks related to life management, To improve tolerance to ADL's Therapeutic Exercise to Include: Strength training, Power training, Endurance training, Postural training, Flexibilty training, In an aquatic setting, Passive ROM, Active ROM For the Purpose of:: To decrease pain, To increase ROM, To improve nutrient delivery to tissue, To increase oxygenation perfusion, To improve muscle performance and motor function, To improve ability to perform ADL's, To increase tolerance to activity/condition/position, To improve performance and independence with ADL's, To decrease level of supervision to perform tasks, To improve ability of physical actions for home/community/work/leisure, To improve gait and locomotor functions, To improve health of tissue This patient was last seen in our office 02/01/23. Pertinent comments regarding their Physical therapy will appear below: I talked with Idris today after her PT. She reports overall doing well and is I with her program. She will be DC from PT at this time and is to follow up with physician if needed. At this point I will be discontinuing this patient from physical therapy. I would be happy to see this patient again in the future if found appropriate by the physician. Thank you! Ernesto Patterson, DPT Balance/Gait/Functional tests - Balance/Special Test Scores Oswestry Low Back Score: 15
== END 2023-02-01 19:00 | disposition home or self-care (01) ==
LOC: PT 11:00
PROVIDERS: PCP Internal Medicine; Referring Provider Family Medicine Hospice and Palliative Medicine; Visit Provider Family Medicine Hospice and Palliative Medicine
DX: M62.81 Muscle weakness (generalized) (principal); R52 Pain, unspecified
CPT/HCPCS: 97113; 97161

== ENCOUNTER → 2023-05-26 | Outpatient (CLI) | payer MEDICARE, OTHER, SELFPAY ==
--- NOTE | 2023-05-26 10:27 | BI_ITS ---
MAMMOGRAPHY - BILATERAL SCREENING REASON FOR EXAM: Female, 67 years old. Routine annual screening examination. PERTINENT HISTORY: Aunt with breast cancer. Chronic inversion of the right nipple. TECHNIQUE: Digital bilateral breast laure (3D mammographic acquisition) in the CC and MLO projections. 2-D mediolateral oblique (MLO) and craniocaudad (CC) views of both breasts were obtained. CAD: Full Field Digital Mammography with Computer Added Detection was performed. COMPARISON: Comparison is made with prior study dated May 20, 2022 and April 30, 2021. FINDINGS: Breast Composition: The breasts are extremely dense, which lowers the sensitivity of mammography. There are no dominant masses or suspicious calcifications. No other significant abnormalities are identified. There has been no significant change since the prior study. BI/SCRN MAMM (CAD)W/LAURE BILAT IMPRESSION: Stable bilateral screening mammogram. Yearly follow-up mammogram recommended. (A) ASSESSMENT CATEGORY: BIRADS Category 1: Negative. A letter regarding these results will be sent to the patient by the facility within 30 days. Approximately 10% of breast cancers are not detected by mammography. A normal mammogram should not delay biopsy of a clinically suspicious abnormality. [id number] Electronically Signed: Chino Ho MD at 12:34 EDT ,
== END | disposition home or self-care (01) ==
LOC: OPBI 10:26
PROVIDERS: PCP Internal Medicine; Referring Provider Internal Medicine; Visit Provider Internal Medicine
DX: Z12.31 Encounter for screening mammogram for malignant neoplasm of breast (principal); Z80.3 Family history of malignant neoplasm of breast; N64.59 Other signs and symptoms in breast
CPT/HCPCS: 77063; 77067

== ENCOUNTER 2023-11-29 11:00 | Outpatient (RCR) | payer MEDICARE, OTHER, SELFPAY ==
--- NOTE | 2023-11-21 14:02 | HP.PTEVAL_ITS ---
Patient's Visit Information Visit Information Visit Information: IDRIS LAURENT is a 68 year old F referred to Physical Therapy by Dr. Kathrin Reveles MD with a diagnosis of Piriformis syndrome. Date of Evaluation: 11/21/23 Physical Therapist: Emigdio Wick, PT, ATC Visit Plan Frequency: 2x /Week Duration: 1 Week Plan: Postural edu, Core stab ex's, LE strengthening, and HEP Subjective Subjective: Pt reports she has had R LBP/glute pain for approximately 8 months. Pt notes she has been having to take meds to help control her pain. Pt reports the pain originates along her illiac crest and extends toward her distal glute. Pt reports her pain is constant when she is up throughout the day, but notes her pain goes away when she lies down flat on her back. Pt reports she has had x- rays that reveal she has an L3-4 spondylolisthesis, but no other pathology. Pt reports no sleep difficulty at this time secondary to pain. Pt reports prolonged sitting and standing tends to increase her pain, so she feels like she is constantly changing positions to decrease her pain. Pt reports she has been stretching on her own which feels good, but really hasn't made a permanent impact at this time. L glute pain is currently 3/10 while sitting at rest, but patient notes it increases to 6/10 at worst. Pain L glute pain: Pain Intensity (Out of 10): 3 Pain Intensity Range: 6 Objective Objective: Neuro: B LE sensation is WNL to light touch. B patellar reflex= 1/3 Palpation: Pt is tender along the L SI joint and along the L IT band. No obvious deformity at this time MMT: B LE's are grossly 4+/5 throughout ROM: L/S ext ROM is moderately limited. Repeated movements: Both flex and ext peripheralizes pain into L glute. Balance/Special Test Scores Lower Extremity Functional Score: 63 Goals Goal 1:: Decrease L hip pain x 50% to aid with standing tolerance Goal Time Frame: 4-6 Weeks Goal 2:: Increase L/S ROM to WNL in all planes to aid with IADL's Goal Time Frame: 4-6 Weeks Goal 3:: I with HEP Goal Time Frame: 4-6 Weeks Rehabilitation Potential Physical Therapy Diagnosis: Pt has L hip pain, decreased L/S ROM, and difficulty maintaining sustained positions secondary to L/S instability Rehabilitation Potential: Good Anticipated Interventions Text: Thank you for the opportunity to evaluate your patient. For Medicare and Medicare HMO plans, please review the plan of care and approve it. It will need to be FAXED BACK to us at [phone] for Medicare purposes. For Medicare only, by signing this I certify the plan of care. Please let me know if there are questions or concerns regarding this plan of care. Physician Signature: Date:
== END 2023-11-29 19:00 | disposition home or self-care (01) ==
LOC: PT 11:00
PROVIDERS: PCP Internal Medicine; Referring Provider Internal Medicine; Visit Provider Internal Medicine
DX: G57.00 Lesion of sciatic nerve, unspecified lower limb (principal)
CPT/HCPCS: 97110; 97161

== ENCOUNTER 2024-02-08 11:50 | Emergency (ER) | payer MEDICARE, OTHER, SELFPAY ==
[2024-02-08 11:51] VITALS: BP 165/115; PULSE 73; RESP 16; TEMP 36.7; O2SAT 98
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
[2024-02-08 13:46] VITALS: BP 158/74; PULSE 60; RESP 16; TEMP 36.6; O2SAT 99
== END 2024-02-08 13:47 | disposition home or self-care (01) ==
PROVIDERS: Emergency Provider Emergency Medicine; PCP Internal Medicine; Visit Provider Emergency Medicine
DX: S16.1XXA Strain of muscle, fascia and tendon at neck level, initial encounter (principal); Y92.410 Unspecified street and highway as the place of occurrence of the external cause; Z87.891 Personal history of nicotine dependence; V49.40XA Driver injured in collision with unspecified motor vehicles in traffic accident, initial encounter; W22.09XA Striking against other stationary object, initial encounter; Z87.440 Personal history of urinary (tract) infections; E07.9 Disorder of thyroid, unspecified
CPT/HCPCS: 70450; 72125; 99282

== ENCOUNTER 2024-02-15 13:00 | Outpatient (RCR) | payer SELFPAY | END 2024-02-15 19:00 | disposition home or self-care (01) | LOC: PT 13:00 | PROVIDERS: PCP Internal Medicine | DX: M54.50 Low back pain, unspecified (principal) ==

== ENCOUNTER → 2024-06-06 | Outpatient (CLI) | payer MEDICARE, OTHER, SELFPAY ==
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
--- NOTE | 2024-06-06 13:08 | BD_ITS ---
STUDY: DUAL ENERGY X-RAY ABSORPTIOMETRY / DXA REASON FOR EXAM: Female, 68 years old. 733.00OsteoporosisBONE DENSITY REASON FOR EXAM TECHNIQUE: Bone Mineral Density (BMD) measurements of lumbar spine and bilateral hips were obtained. COMPARISON: Comparison is made with prior study dated May 20, 2022. FINDINGS: Lumbar Spine (L1-L4): g/cm2 (0.943) / T-score (-0.9) / Z-score (0.9) Findings are suggestive of normal bone density with a low fracture risk. Left Femur Total: g/cm2 (0.808) / T-score (-1.1) / Z-score (0.2) Left Femoral Neck: g/cm2 (0.884) / T-score (0.3) / Z-score (1.9) Right Femur Total: g/cm2 (0.773) / T-score (-1.4) / Z-score (-0.1) Right Femoral Neck: g/cm2 (0.699) / T-score (-1.3) / Z-score (0.3) The T-Scores on the most recent prior examination were: Lumbar Spine (L1-L4): There has been improvement of bone density since the previous examination. Left Femur Total: which represents a worsening of 4.3%. Right Femur Total: which represents an improvement of 1.9%. BD/Dexa Bone Density Study IMPRESSION: The patient is considered osteopenic as outlined below according to World Reed Organization (WHO) criteria with a low fracture risk. There has been improvement of bone density since the previous examination. Reference Information: The T-score is the number of standard deviations above or below the standard which is normal for young adults at their peak bone mineral density. The World Health Organization (WHO) interprets the T-scores as follows: Above -1 Normal bone density Between -1 and -2.5 Osteopenia Equal to / or below -2.5 Osteoporosis As a practical clinical guideline, osteopenia may be graded as follows: Mild -1 through -1.5 Moderate -1.6 through -2.0 Severe -2.1 through -2.4 The Z-score is the number of standard deviations above or below age-matched controls. A Z-score of less than -1.5 would be considered abnormal. References: 1. NIH Osteoporosis and Related Bone Diseases www osteo.org 2. International Society for Clinical Densitometry www iscd.org 3. National Osteoporosis Foundation www nof.org Electronically Signed: Chino Ho MD at 15:25 EDT ,
== END | disposition home or self-care (01) ==
LOC: OPBD 13:08
PROVIDERS: PCP Internal Medicine; Referring Provider Internal Medicine; Visit Provider Internal Medicine
DX: Z12.31 Encounter for screening mammogram for malignant neoplasm of breast (principal); M81.0 Age-related osteoporosis without current pathological fracture
CPT/HCPCS: 77063; 77067; 77080

== ENCOUNTER → 2024-09-11 | Outpatient (CLI) | payer MEDICARE, OTHER, SELFPAY | END | disposition home or self-care (01) | LOC: PSN 10:43 | PROVIDERS: PCP Internal Medicine; Referring Provider Internal Medicine; Visit Provider Internal Medicine | DX: R00.2 Palpitations (principal) | CPT/HCPCS: 93225; 93226 ==

== ENCOUNTER 2024-10-01 10:59 | Outpatient (RCR) | payer SELFPAY | END 2024-10-01 19:00 | disposition home or self-care (01) | LOC: PT 10:59 | PROVIDERS: PCP Internal Medicine | DX: G57.00 Lesion of sciatic nerve, unspecified lower limb (principal) ==

== ENCOUNTER → 2025-05-28 | Outpatient (CLI) | payer MEDICARE, OTHER, SELFPAY ==
[2025-05-28 13:05] LABS: Potassium 4.9 mmol/L (3.3-5.1)
== END | disposition home or self-care (01) ==
PROVIDERS: PCP Internal Medicine; Referring Provider Internal Medicine; Visit Provider Internal Medicine
DX: E87.5 Hyperkalemia (principal)
CPT/HCPCS: 84132

== ENCOUNTER 2025-06-01 10:43 | Emergency (ER) | payer MEDICARE, OTHER, SELFPAY ==
--- OUTSIDE RECORDS SUMMARY | 2025-06-01 10:10 | XMS RPT_ITS ---
Author Name Auto Generated Organization OHIP Care Team Providers Care Vapor Coater Name Role Phone KATHRIN DSOUZA Primary Care Unavailable MASCI, ESAU Garza Referring Unavailable BONEZZI, KATHRIN Solis Primary Care Unavailable MASCI, ESAU Garza Referring Unavailable BONEZZI, KATHRIN Solis Primary Care Unavailable BONEZZI, KATHRIN Solis Primary Care Unavailable MASCI, ESAU Garza Referring Unavailable BONEZZI, KATHRIN Solis Primary Care Unavailable MASCI, ESAU Garza Referring Unavailable BONEZZI, KATHRIN Solis Primary Care Unavailable MASCI, ESAU Garza Referring Unavailable BONEZZI, KATHRIN Solis Primary Care Unavailable MASCI, ESAU Garza Referring Unavailable BONEZZI, KATHRIN Solis Primary Care Unavailable MASCI, ESAU Garza Attending Unavailable BONEZZI, KATHRIN Solis Primary Care Unavailable MASCI, ESAU Garza Referring Unavailable BONEZZI, KATHRIN Solis Primary Care Unavailable MASCI, ESAU Garza Referring Unavailable BONEZZI, KATHRIN Solis Primary Care Unavailable MASCI, ESAU Garza Referring Unavailable BONEZZI, KATHRIN Solis Primary Care Unavailable BONEZZI, KATHRIN Solis Referring Unavailable CLARADANAY Attending Unavailable BONEZZI, KATHRIN Solis Primary Care Unavailable BONEZZI, KATHRIN Solis Referring Unavailable CLARADANAY Attending Unavailable BONEZZI, KATHRIN Solis Primary Care Unavailable MASCI, ESAU Garza Referring Unavailable MASCI, ESAU Garza Attending Unavailable BONEZZI, KATHRIN Solis Primary Care Unavailable MASCI, ESAU Garza Referring Unavailable BONEZZI, KATHRIN Solis Primary Care Unavailable MASCI, ESAU Garza Referring Unavailable BONEZZI, KATHRIN Solis Primary Care Unavailable BONEZZI, KATHRIN Solis Referring Unavailable CLARA, DANAY Attending Unavailable BONEZZI, KATHRIN Solis Primary Care Unavailable BONEZZI, KATHRIN Solis Referring Unavailable CLARA, DANAY Attending Unavailable BONEZZI, KATHRIN Solis Primary Care Unavailable BONEZZI, KATHRIN M Primary Care Unavailable BONEZZI, KATHRIN M Referring Unavailable CLARA, DANAY Attending Unavailable BONEKATHRIN ESPARZA Primary Care Unavailable MASCI, ESAU A Referring Unavailable BONECHERYLI, KATHRIN M Primary Care Unavailable MASCI, ESAU A Referring Unavailable BONEZZI, KATHRIN M Primary Care Unavailable MASCI, ESAU A Referring Unavailable KELLEY EISENBERG Attending Unavailable BONECHERYLI, KATHRIN Solis Primary Care Unavailable SELF Referring Unavailable LIANNA, KATHRIN M Primary Care Unavailable FAINA CORTES Referring Unavailable FAINA CORTES Attending Unavailable PROBLEMS DATE TYPE CONDITION / CODE ATTENDING STATUS [facility] 06/01/2025 Active Throat discomfor t / R07.0(ICD-10) KELLEY EISENBERG Active [facility] 11/15/2024 Active Diffuse myofasci al pain syndrome / M79.18(ICD-10) DANAY ELIZABETH Active [facility] 11/15/2024 Active Degeneration of intervertebral disc of lumbosacral region with lower extremity pain / M51.371(ICD-10) DANAY ELIZABETH Active [facility] 08/05/2022 Active Malignant neopla sm of lung, unspecified laterality, unspecified part of lung (HCC) / C34.90(ICD-10) NA Active [facility] 03/12/2022 Active Hyponatremia / E87.1(ICD-10) NA Active [facility] 09/07/2024 Active Cancer of trache a, bronchus, and lung (HCC) / C33(ICD-10) NA [facility] 09/07/2024 Active Cancer of trache a, bronchus, and lung (HCC) / C34.80(ICD-10) NA Active [facility] 06/18/2024 Active Urinary retentio n / R33.9(ICD-10) NA [facility] 08/05/2022 Active Malignant neopla sm of middle lobe of right lung (HCC) / C34.2(ICD-10) [facility] 04/09/2022 Active NSCLC with EGFR mutation (HCC) / C34.90(ICD-10) NA [facility] 04/09/2022 Active 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 Author Type: Nurse Practitioner Type: Progress Notes Filed: 06/01/2025 10:37 Note Text: Patient came in and says she feels like she has a large vitamin stuck in the left side of her throat. Patient says it feels like it is pretty far down. Patient has tried cold liquids warm liquids to get it unstuck. Patient says she is drinking and eating fine but cannot get that sensation to go away. Do not have any test available today. Patient was instructed to go to the emergency room to get it evaluated. Patient agreeable and will take her now. CNOV Observed: 06/01/2025 10:15 AM Status: COMPLETED Source: [facility] Office Visit (WOUCA) ASHTYN LAURENT ([id number]) 1955 F Date Time Provider Department 06/01/25 10:15 AM KELLEY EISENBERG During your visit today, we recorded the following information about you: Temperature Pulse Respiration Blood pressure 96 degrees 66/minute 20/minute 186/110 Weight 48 kg Kelley Eisenberg APRN.CNP 06/01/2025 10:37 AM Signed Patient came in and says she feels like she has a large vitamin stuck in the left side of her throat. Patient says it feels like it is pretty far down. Patient has tried cold liquids warm liquids to get it unstuck. Patient says she is drinking and eating fine but cannot get that sensation to go away. Do not have any test available today. Patient was instructed to go to the emergency room to get it evaluated. Patient agreeable and will take her now. Referring Provider: SELF [200] Allergies As of Date: 06/01/2025 Noted Allergy Reaction NICKEL 09/25/2008 SEPTRA (SULFAMETHOXAZOLE-TRIMETHO*11/03/2005 SULFA (SULFONAMIDE ANTIBIOTICS) 11/03/2005 THIMEROSAL 11/03/2005 TORADOL (KETOROLAC) 03/12/2022 5 - Intolerance Comments: Sweating, anxiety, warmth sensation Date Reviewed: 06/01/2025 Reviewed by: Julieta Hope LPN - Fully Assessed Reason for Visit: Throat Problem [109] Cmt: States she took a large vitamin last evening around 730 pm and same feels stuck in bottom of her throat, no pain, was able to drink liquids hot and cold but no relief, no Shortness of Breath Primary Visit Diagnosis:Throat discomfort [R07.0] Prescriptions as of 06/01/2025 - TAGRISSO 80 mg tablet TAKE 1 TABLET DAILY. - iv contrast (will be provided with radiology test) CT Chest W -Inject, intravenously, once for 1 dose.No IV access, insert saline lock prior to the beginning of sedation, infusion, injection of imaging exam. Discontinue saline lock post exam. If Pt. has a central line or IVAD, may access for administration according to line specific nursing protocol. Once exam is complete flush line and de-access according to line specific nursing protocol in the CT contrast administration guidelines link. - iv contrast (will be provided with radiology test) CT ABD/PEL -Inject, intravenously, once for 1 dose.No IV access, insert saline lock prior to the beginning of sedation, infusion, injection of imaging exam. Discontinue saline lock post exam. If Pt. has a central line or IVAD, may access for administration according to line specific nursing protocol. Once exam is complete flush line and de-access according to line specific nursing protocol in the CT contrast administration guidelines link. - enteric contrast (will be provided with radiology test) For CT ABD/PEL W IVCON Routine order Administer, As Directed One Time Only, via Oral, Rectal, both Oral and Rectal, Enteric Tube, Stoma or Indwelling Catheter, Enteric Contrast as designated per enteric contrast guidelines - levothyroxine (SYNTHROID) 88 mcg tablet Take 88 mcg by mouth daily before breakfast. Take 1 tablet Tuesday thru Tuesday and NONE on Tuesday - metroNIDAZOLE (METROGEL) 0.75 % Topical Gel Apply to affected area two times a day. - TURMERIC ORAL Take 15 mg by mouth once daily. - ubidecarenone Q-10 (CO Q-10) 10 mg cap Take 10 mg by mouth once daily. - CYTOMEL 5 mcg tablet Take 5 mcg by mouth once daily. - naproxen sodium (ALEVE) 220 mg tablet Take 220 mg by mouth two times a day with meals. - acetaminophen (TYLENOL EXTRA STRENGTH) 500 mg tablet Take 650 mg by mouth every 8 hours as needed. - MULTIVITAMIN ORAL Take 1 tablet by mouth once daily. - calcium carbonate (CALCIUM 500 ORAL) Take by mouth once daily. 2912-8395 daily Includes, Vit K1, 2, 7 - ZMMYQ-1-TXC-UNV-SNB-RASA OIL ORAL Take 1 tablet by mouth once daily. - pregabalin (LYRICA) 75 mg capsule Take 75 mg by mouth two times a day. Three times daily - zoledronic acid (ZOMETA) 4 mg/5 mL injection Inject intravenously. - LACTOBACILLUS ACIDOPHILUS (PROBIOTIC ORAL) Take 1 tablet by mouth once daily. - cholecalciferol (VITAMIN D3) 5,000 unit tab Take 1 capsule by mouth one time a week. 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] 08/11/2022 Status post thoracic spinal fusion [Z98.1] 08/11/2022 Degeneration of intervertebral disc of lumbosac*11/15/2024 Diffuse myofascial pain syndrome [M79.18] 11/15/2024 Encounter Status:Closed by KELLEY EISENBERG on 06/01/25 BAS METAB 2000 PNL SERPL Collected: 08/2025 9:59 AM Status: F Source: [facility] Order Comment: Specimen Type : BLOOD SPECIMEN Ordering Facility: [facility] Address: [facility] [place] [address] TYPE CODE TESTS RESULT OUT OF RANGE REFERENCE UNITS LAB 2345-7(LOINC) Glucose SerPl-mCnc 78 74-99 mg/dL Result Comment: The [place] Diabetes Association (ADA) provides guidance for cutoff values for fasting glucose and random glucose. The ADA defines fasting as no caloric intake for at least 8 hours. Fasting plasma glucose results between 100 to 125 mg/dL indicate increased risk for diabetes (prediabetes). Fasting plasma glucose results greater than or equal to 126 mg/dL meet the criteria for diagnosis of diabetes. In the absence of unequivocal hyperglycemia, results should be confirmed by repeat testing. In a patient with classic symptoms of hyperglycemia or hyperglycemic crisis, random plasma glucose results greater than or equal to 200 mg/dL meet the criteria for diagnosis of diabetes. Reference: Standards of Medical Care in Diabetes 2016, [place] [employer] Association. Diabetes Care. 2016.39(Suppl 1). LAB 3094-0(LOINC) BUN SerPl-mCnc 17 7-21 mg/dL LAB 2160-0(LOINC) Creat SerPl-mCnc 0.86 0.58-0.96 mg/dL LAB 2951-2(LOINC) Sodium SerPl-sCnc 134 Low 136-144 mmol/L LAB 2823-3(LOINC) Potassium SerPl-sCnc 4.5 3.7-5.1 mmol/L LAB 2075-0(LOINC) Chloride SerPl-sCnc 98 98-107 mmol/L LAB 2028-9(LOINC) CO2 SerPl-sCnc 25 22-30 mmol/L LAB 73755-3(LOINC) Anion Gap SerPl-sCnc 11 8-15 mmol/L LAB 84454-7(LOINC) Calcium SerPl-mCnc 9.5 8.5-10.2 mg/dL LAB 72478-5(LOINC) eGFRcr SerPlBld CKD-EPI 2020 74 >=60 mL/min/1. 73m??? Result Comment: Estimated Gl omerular Filtration Rate (eGFR) is calculated using the 2020 CKD-EPI creatinine equation. This equation utilizes serum creatinine, sex, and age as parameters. The creatinine assay has traceable calibration to isotope dilution-mass spectrometry. Refer to KDIGO guidelines for clinical interpretation. In patients with unstable renal function, e.g. those with acute kidney injury, the eGFR may not accurately reflect actual GFR. Performed By: #### 79247-1 # ### [facility] CLIA [id number] [address] [place] [address] [place] CBC W AUTO DIFF BLD Collected: 03/27/2025 8:[address] atus: F Source: [facility] Order Comment: Specimen Type : BLOOD SPECIMEN Ordering Facility: [facility] Address: [address] [place] [address] TYPE CODE TESTS RESULT OUT OF RANGE REFERENCE UNITS LAB 6690-2(LOINC) WBC # Bld Auto 3.71 3.70-11.00 k/uL LAB 789-8(LOINC) RBC # Bld Auto 4.15 3.90-5.20 m/ uL LAB 718-7(LOINC) Hgb Bld-mCnc 14.0 11.5-15.5 g/dL LAB 4544-3(LOINC) Hct VFr Bld Auto 40.4 36.0-46.0 % LAB 787-2(LOINC) MCV RBC Auto 97.3 80.0-100.0 fL LAB 785-6(LOINC) MCH RBC Qn Auto 33.7 26.0-34.0 p g LAB 786-4(LOINC) MCHC RBC Auto-mCnc 34.7 30.5-36.0 g/dL LAB 74836-0(LOINC) RDW RBC-Rto 12.8 11.5-15.0 % LAB 777-3(LOINC) Platelet # Bld Auto 234 150-400 k/uL LAB 72481-7(LOINC) PMV Bld Auto 8.9 Low 9.0-12.7 fL LAB 770-8(LOINC) Neutrophils/leuk NFr Bld Auto 57.3 % LAB 751-8(LOINC) Neutrophils # Bld Auto 2.13 1.45-7.50 k/uL LAB 736-9(LOINC) Lymphocytes/leuk NFr Bld Auto 22.4 % LAB 731-0(LOINC) Lymphocytes # Bld Auto 0.83 Low 1.00-4.00 k/uL LAB 5905-5(LOINC) Monocytes/leuk NFr Bld Auto 13.2 % LAB 742-7(LOINC) Monocytes # Bld Auto 0.49 <0.87 k/uL LAB 713-8(LOINC) Eosinophil/leuk NFr Bld Auto 5.7 % LAB 711-2(LOINC) Eosinophil # Bld Auto 0.21 <0.46 k/uL LAB 706-2(INC) Basophils/leuk NFr Bld Auto 1.1 % LAB 704-7(LOINC) Basophils # Bld Auto 0.04 <0.11 k/uL LAB 07991-5(INC) Imm Granulocytes/harish k NFr Bld Auto 0.3 % LAB 99348-0(INC) Imm Granulocytes # Bld Auto <0.03 <0.10 k/uL LAB 96893-1(LOINC) nRBC/100 WBC Bld-Rto 0.0 /100 WBC LAB 771-6([facility]) nRBC # Bld Auto <0.01 <0.01 k/u L LAB 70868-0([facility]) Differential method Bld Auto Performed By: #### 07204-4 # ### [facility] CLIA [id number] [address] [place] [address] [place] COMP METAB 2000 PNL SERPL Collected: 8:36 AM Status: F Source: [facility] Order Comment: Specimen Type : BLOOD SPECIMEN Ordering Facility: [facility] Address: [address] [place] [address] TYPE CODE TESTS RESULT OUT OF RANGE REFERENCE UNITS LAB 2885-2(INC) Prot SerPl-mCnc 7.5 6.3-8.0 g/dL LAB 1751-7(LOINC) Albumin SerPl-mCnc 5.1 High 3.9-4.9 g/dL LAB 27102-1(LOINC) Calcium SerPl-mCnc 9.4 8.5-10.2 mg/dL LAB 1975-2(LOINC) Bilirub SerPl-mCnc 0.6 0.2-1.3 mg/dL LAB 6768-6(LOINC) ALP SerPl-cCnc 49 34-123 U/L LAB 1920-8(LOINC) AST SerPl-cCnc 67 High 13-35 U/L LAB 1742-6(LOINC) ALT SerPl-cCnc 38 7-38 U/L LAB 2345-7(LOINC) Glucose SerPl-mCnc 90 74-99 mg/dL Result Comment: The [place] Diabetes Association (ADA) provides guidance for cutoff values for fasting glucose and random glucose. The ADA defines fasting as no caloric intake for at least 8 hours. Fasting plasma glucose results between 100 to 125 mg/dL indicate increased risk for diabetes (prediabetes). Fasting plasma glucose results greater than or equal to 126 mg/dL meet the criteria for diagnosis of diabetes. In the absence of unequivocal hyperglycemia, results should be confirmed by repeat testing. In a patient with classic symptoms of hyperglycemia or hyperglycemic crisis, random plasma glucose results greater than or equal to 200 mg/dL meet the criteria for diagnosis of diabetes. Reference: Standards of Medical Care in Diabetes 2016, [place] [employer]. Diabetes Care. 2016.39(Suppl 1). LAB 3094-0(LOINC) BUN SerPl-mCnc 13 7-21 mg/dL LAB 2160-0(LOINC) Creat SerPl-mCnc 1.00 High 0.58-0.96 mg/dL LAB 2951-2(LOINC) Sodium SerPl-sCnc 134 Low 136-144 mmol/L LAB 2823-3(LOINC) Potassium SerPl-sCnc 5.0 3.7-5.1 mmol/L LAB 2075-0(LOINC) Chloride SerPl-sCnc 98 98-107 mmol/L LAB 2027-9(LOINC) CO2 SerPl-sCnc 22 22-30 mmol/L LAB 88681-1(LOINC) Anion Gap SerPl-sCnc 14 8-15 mmol/L LAB 00270-6(LOINC) eGFRcr SerPlBld CKD-EPI 2020 62 >=60 mL/min/1. 73m??? Result Comment: Estimated Gl omerular Filtration Rate (eGFR) is calculated using the 2020 CKD-EPI creatinine equation. This equation utilizes serum creatinine, sex, and age as parameters. The creatinine assay has traceable calibration to isotope dilution-mass spectrometry. Refer to KDIGO guidelines for clinical interpretation. In patients with unstable renal function, e.g. those with acute kidney injury, the eGFR may not accurately reflect actual GFR. Performed By: #### 30950-0, 2777-1, 10212-4 #### [facility] CLIA [id number] [address] [place] [address] [place] MAGNESIUM SERPL-MCNC Collected: 03/27/2025 8:36 AM S tatus: F Source: [facility] Comment: Specimen Type : BLOOD SPECIMEN Ordering Facility: [facility] Address: [address] [place] [address] TYPE CODE TESTS RESULT OUT OF RANGE REFERENCE UNITS LAB 12518-3(LOINC) Magnesium SerPl-mCnc 2.4 High 1.7-2.3 mg/dL Performed By: #### 07719-6, 2777-1, 18653-2 #### [facility] CLIA [id number] [address] [place] [address] [place] PHOSPHATE SERPL-MCNC Collected: 03/27/2025 8:36 AM S tatus: F Source: [facility] Comment: Specimen Type : BLOOD SPECIMEN Ordering Facility: [facility] Address: [address] [place] [address] TYPE CODE TESTS RESULT OUT OF RANGE REFERENCE UNITS LAB 2777-1(LOINC) Phosphate SerPl-mCnc 5.0 High 2.7-4.8 mg/dL Performed By: #### 05593-4, 2777-1, 03031-0 #### [facility] CLIA [id number] [address] [place] [address] [place] BAS METAB 2000 PNL SERPL Collected: 10:20 AM Status: F Source: [facility] Comment: Specimen Type : BLOOD SPECIMEN Ordering Facility: [facility] Address: [address], [place] [id number] TYPE CODE TESTS RESULT OUT OF RANGE REFERENCE UNITS LAB 2345-7(LOINC) Glucose SerPl-mCnc 89 74-99 mg/dL Result Comment: The [place] Diabetes Association (ADA) provides guidance for cutoff values for fasting glucose and random glucose. The ADA defines fasting as no caloric intake for at least 8 hours. Fasting plasma glucose results between 100 to 125 mg/dL indicate increased risk for diabetes (prediabetes). Fasting plasma glucose results greater than or equal to 126 mg/dL meet the criteria for diagnosis of diabetes. In the absence of unequivocal hyperglycemia, results should be confirmed by repeat testing. In a patient with classic symptoms of hyperglycemia or hyperglycemic crisis, random plasma glucose results greater than or equal to 200 mg/dL meet the criteria for diagnosis of diabetes. Reference: Standards of Medical Care in Diabetes 2016, [place] [employer]. Diabetes Care. 2016.39(Suppl 1). LAB 3094-0(LOINC) BUN SerPl-mCnc 15 7-21 mg/ dL LAB 2160-0(LOINC) Creat SerPl-mCnc 0.79 0.58-0.96 mg/dL LAB 2951-2(LOINC) Sodium SerPl-sCnc 129 Low 136-144 mmol/L LAB 2823-3(LOINC) Potassium SerPl-sCnc 5.0 3.7-5.1 mmol/L LAB 2075-0(LOINC) Chloride SerPl-sCnc 92 Low 98-107 mmol/L LAB 2028-9(LOINC) CO2 SerPl-sCnc 24 22-30 mmo l/L LAB 61512-2(LOINC) Anion Gap SerPl-sCnc 13 8-15 mmol/L LAB 76331-7(LOINC) Calcium SerPl-mCnc 9.8 8.5-10.2 mg/dL LAB 76347-9(LOINC) Creatinine + eGFR Pnl SerPlBld 82 >=60 mL/min/1 .73m??? Result Comment: Estimated Gl omerular Filtration Rate (eGFR) is calculated using the 202 CKD-EPI creatinine equation. This equation utilizes serum creatinine, sex, and age as parameters. The creatinine assay has traceable calibration to isotope dilution-mass spectrometry. Refer to KDIGO guidelines for clinical interpretation. In patients with unstable renal function, e.g. those with acute kidney injury, the eGFR may not accurately reflect actual GFR. Performed By: #### 66584-0 # ### [facility] CLIA [id number] [address] [place] [address] [place] PROGRESS Observed: 01/07/2025 12:17 PM Status: COMPLETED Source: [facility] HNO ID: [id number] Author: DANAY ELIZABETH PT Service: ? Author Type: Physical Therapist Type: Progress Notes Filed: 01/07/2025 13:36 Note Text: Episode Visit Count: 5 Therapist That Will Accept/Oversee The Plan Of Care: Danay Elizabeth PT Start of Care Date: 11/15/24 Onset Date: 08/17/24 Plan of Care Certification Date: 12/20/24 Next Certification Due Date: 01/31/25 Patient Identified by Name and Date of : Yes REHABILITATION AND SPORTS THERAPY PHYSICAL THERAPY DISCONTINUANCE OF CARE PLAN OF CARE UPDATE: Assessment: Ashtyn Whitmore Mehran is discontinued from Physical Therapy services due to maximal benefit.. Patient was seen for 5 visits from Start of Care Date: 11/15/24 to 01/07/2025 and treatment included: Therapeutic exercise, Manual therapy, and Self-group home management. Goals updated 12/20/24 Goals for Episode of Care: established 11/15/24 [place] in home exercise program. - Met so far Perform walking uphill without pain. - Not met Increased strength of hip abd, ext, and ER's to 01/07 for improved SIJ stability and decreased - Not assessed Pt will be able to sit for a prolonged period of time without pain/symptoms in 12 weeks or less. - Not met Patient Goals: Reduce the pain SUBJECTIVE: Not feeling much difference since starting PT. Patient Goals: Reduce the pain Functional Limitations: sitting, walking Prior Level of Function: Independent without limitations Intake Information: Prescription present Previous Treatment: Injections Pain: Pain Pain Location: Leg - Left, Buttocks - Left, Low Back/Lumbar Spine - Left PROMIS Scales 12/13/2024 11/08/2024 08/08/2023 Higher is Better Phys Func - T Score 48 (within normal limits) 50 (within normal limits) 52 (within normal limits) Phys Func - Percentile 42 50 58 Self-Eff Symptom - T Score 46 (Average) 47 (Average) Self-Eff Symptom - Percentile 34 38 08/08/2023 02/07/2023 09/28/2022 Lower is Better Pain Interference - T Score 56 (mild) 54 (within normal limits) 59 (mild) Pain Interference - Percentile 27 34 18 T-scores: mean of general population = 50. 5 points is clinically meaningfully difference Percentiles provide an indication of how the patient's score ranks in relation to the general population. Higher percentile rankings indicate better function/quality of life. 50th percentile is the average of the general population and indicates half of respondents had a worse score. OBJECTIVE MEASURES WITH LEVEL OF FUNCTION: Lumbar Spine AROM Lumbar Flexion: Normal Lumbar Extension: Normal Lumbar R Side [place]: Normal Lumbar L Side [place]: Normal Lumbar R Side-Bend: Normal Lumbar L Side-Bend: Normal Lumbar R Rotation: Normal Lumbar L Rotation: Normal LE PROM Tested?: Yes LE PROM R LE PROM: WNL L LE PROM : WNL Special Tests - Hip and Spine Hip and Spine Special Tests: SI Cluster Tests SLR Test: Right Negative, Left Negative SI Distraction Test: Right Negative, Left Negative TREATMENT: Self-Chcf Management: 1: All objective measures taken this session 2: Discussed anatomy of the spine and possible benefits of continuing with the HEP and chiropactic care. Skilled Intervention: Skilled judgment in the selection of proper modification for activity of daily living/home management based on clinical presentation, deficits, and needs. Billing Self-Care/Home Management Treatment Minutes: 30 Skilled Treatment Time Minutes (timed and untimed codes): 30 Total Session Time (minutes): 30 Session Start Time : 1217 Session Stop Time : 1247 Danay Elizabeth PT CNTHERAPY Observed: 01/07/2025 12:15 PM Status: COMPLETED Source: [facility] OT/PT/Speech Visit (PTWS) ASHTYN LAURENT ([id number]) 1955 F Date Time Provider Department 5/5/25 12:15 PM DANAY ELIZABETH PTWS Date Time Provider Department [place] 01/07/2025 12:15 PM [id number], COREY PTWS Silvana Jha Reason for Visit: PT Discharge [752] Primary Visit Diagnosis:Degeneration of intervertebral disc of lumbosacral region with lower extremity pain [M51.371] Other Visit Diagnosis:Diffuse myofascial pain syndrome [M79.18] Allergies As of Date: 01/07/2025 Noted Allergy Reaction NICKEL 09/25/2008 SEPTRA (SULFAMETHOXAZOLE-TRIMETHO*11/03/2005 SULFA (SULFONAMIDE ANTIBIOTICS) 11/03/2005 THIMEROSAL 11/03/2005 TORADOL (KETOROLAC) 03/12/2022 5 - Intolerance Comments: Sweating, anxiety, warmth sensation Date Reviewed: 12/26/2024 Reviewed by: Heena Leong MA - Fully Assessed Prescriptions as of 01/07/2025 - osimertinib (TAGRISSO) 80 mg tablet TAKE 1 TABLET DAILY. - iv contrast (will be provided with radiology test) CT Chest W -Inject, intravenously, once for 1 dose.No IV access, insert saline lock prior to the beginning of sedation, infusion, injection of imaging exam. Discontinue saline lock post exam. If Pt. has a central line or IVAD, may access for administration according to line specific nursing protocol. Once exam is complete flush line and de-access according to line specific nursing protocol in the CT contrast administration guidelines link. - iv contrast (will be provided with radiology test) CT ABD/PEL -Inject, intravenously, once for 1 dose.No IV access, insert saline lock prior to the beginning of sedation, infusion, injection of imaging exam. Discontinue saline lock post exam. If Pt. has a central line or IVAD, may access for administration according to line specific nursing protocol. Once exam is complete flush line and de-access according to line specific nursing protocol in the CT contrast administration guidelines link. - enteric contrast (will be provided with radiology test) For CT ABD/PEL W IVCON Routine order Administer, As Directed One Time Only, via Oral, Rectal, both Oral and Rectal, Enteric Tube, Stoma or Indwelling Catheter, Enteric Contrast as designated per enteric contrast guidelines - levothyroxine (SYNTHROID) 88 mcg tablet Take 88 mcg by mouth daily before breakfast. Take 1 tablet Tuesday thru Tuesday and NONE on Tuesday - metroNIDAZOLE (METROGEL) 0.75 % Topical Gel Apply to affected area two times a day. - TURMERIC ORAL Take 15 mg by mouth once daily. - ubidecarenone Q-10 (CO Q-10) 10 mg cap Take 10 mg by mouth once daily. - CYTOMEL 5 mcg tablet Take 5 mcg by mouth once daily. - naproxen sodium (ALEVE) 220 mg tablet Take 220 mg by mouth two times a day with meals. - acetaminophen (TYLENOL EXTRA STRENGTH) 500 mg tablet Take 650 mg by mouth every 8 hours as needed. - MULTIVITAMIN ORAL Take 1 tablet by mouth once daily. - calcium carbonate (CALCIUM 500 ORAL) Take by mouth once daily. 2071-3751 daily Includes, Vit K1, 2, 7 - EHMVH-3-TID-YCF-XMP-WBVL OIL ORAL Take 1 tablet by mouth once daily. - pregabalin (LYRICA) 75 mg capsule Take 75 mg by mouth two times a day. Three times daily - zoledronic acid (ZOMETA) 4 mg/5 mL injection Inject intravenously. - LACTOBACILLUS ACIDOPHILUS (PROBIOTIC ORAL) Take 1 tablet by mouth once daily. - cholecalciferol (VITAMIN D3) 5,000 unit tab Take 1 capsule by mouth one time a week. PROGRESS Observed: 12/26/2024 11:53 AM Status: COMPLETED Source: [facility] HNO ID: [id number] Author: ESAU JIMENEZ, DO Service: ? Author Type: Physician Type: Progress Notes Filed: 12/26/2024 12:40 Note Text: Oncologic problem(s): 1) EGFR mutation positive metastatic non-small cell lung cancer. HPI: The patient is a 69 yo female with a PMH significant for hypothyroidism (total thyroidectomy--multinodular goiter) and smoking (quit 30 years ago; prior 1/2 ppd x10 years) She developed worsening back pain summer 2021. Pain was in the lower to mid thoracic area. She noticed it more when she was doing yard work. Got to the point where she was can by squad to the emergency room at [facility] on 03/09/2022. A CT of the chest abdomen pelvis was obtained. It demonstrated a 3.6 mm right upper lobe nodule. There was a 4.2 x 3.8 cm mass in the right middle lobe concerning for neoplasm. Additionally there was a pathologic fracture of T12 with less than 50% compression. There was possible mass extending into the spinal canal which might of been causing spinal stenosis. Trace fluid was noted in the pelvis. An MRI of the thoracic spine done the next morning demonstrated a suspect acute mild pathologic compression fracture of the T7 vertebral body with possible 5 mm retropulsion of the spinal canal producing moderate spinal stenosis with abutment of the central spinal cord. Patient was transferred to [facility]. CT-guided biopsy was performed of the spine lesion. Pathology: Bone, T7, core biopsy: - Metastatic adenocarcinoma, compatible with metastasis from lung primary (see comment). Pain was sharp and localized to mid to lower thoracic area but radiates around under costal margins b/l. ER morphine helps. Using bowel regimen. Cannot lie back flat without exacerbating the pain. Previous therapy: 1) Completed palliative radiation to T7 on 04/26/2022. 2) T6 and T7 laminectomy, bilateral T7 pediculectomy and T7 vertebrectomy, T5, T6, T8, T9 bilateral pedicle screws insertion with titanium expandable cage placement at T7 level T5-9 posterolateral fusion with allograft on 08/11/2022. 3) Completed SBRT 04/01/2023 to primary right middle lobe tumor. Pathology: Bone, T7, resection: -Changes consistent with fracture callus. - Negative for malignancy. (See comment) Current therapy: 1) Osimertinib. 04/2022. Presents for ongoing oncologic management. Interim history: Had two cortisone injections for the right sided sacral notch pain. Did not help. Considering injection for possible ischial bursitis. Otherwise, no complaints. No chronic cough. No chest pain. No shortness of breath with moderate exertion. PMH, medications and allergies personally reviewed by me today. Any changes documented in appropriate section. ROS: Constitutional: Denies episodes of fever and night sweats. Neuro: Denies BOSTON, vertigo, dizziness and imbalance. HEENT: No recent change in voice, vision or hearing. Resp: See above. CVS: Denies exertional chest pain, PND, orthopnea and LE edema. GI: Denies dysphagia and odynophagia. Denies reflux, n/v, change in bowel habits and abdominal pain. : Denies dysuria or gross hematuria. Endo: Denies hot flashes. Denies polyuria and polydipsia. Denies heat and cold intolerance. Musculoskeletal: See above. Derm: No recent rash. Has some slight discoloration in both antecubital fossa. Heme: Denies unusual bleeding and unexplained bruising. Psych: Normal mood. PHYSICAL EXAM: Vitals: Blood pressure 163/101, pulse 69, temperature 36.4 ?C (97.5 ?F), temperature source Temporal, weight 48.1 kg (106 lb), last menstrual period 04/05/2014, SpO2 100%. Well-appearing and in no acute distress. EYES: Sclerae are anicteric bilaterally. LYMPHATIC: There is no palpable cervical, supraclavicular or axillary adenopathy. CARDIOVASCULAR: Rhythm is regular. ABDOMEN: The abdomen is nondistended. Extremities: No swelling or edema. SKIN: No rash. NGS/biomarkers/school bus driver/teacher assistant mutation analyses: -BRAF - No variant detected. -EGFR - A sequence change: [id number], p.([id number]) in exon 19 was detected at approximately 34% allelic proportion (depth of coverage at change 6064). -HER2 (ERBB2) - No variant detected. -KRAS - No variant detected. -MET - No variant detected. -PDL-1 95% tumor cells positive. -ROS-negative. -RET-negative. -ALK translocation negative. ASSESSMENT/PLAN: (C34.2) Malignant neoplasm of middle lobe of right lung (HCC) (primary encounter diagnosis) (C79.51) Metastasis to spinal column (HCC) (C34.90) NSCLC with EGFR mutation (HCC) Assessment: -69 yo female who was in very good general health diagnosed with metastatic EGFR mutation (exon 19) NSCLC of the RML with an isolated metastasis to T7. -KPS is 80-90%. -She continues to tolerate osimertinib well. -Status post SBRT to primary lung tumor. - Personally reviewed CT images lung as well as abdomen pelvis. Stable disease overall with decrease in size of radiation scarring right middle lobe. Plan: -CBC/CMP/PHOS/MAG in 3 months. -CBC/CMP/PHOS/MAG/CT C/A/P then OV in 6 months. -q 3 month Zometa. -Follow up with CPM and PCP. Portions of this documentation were copied and pasted from my previous office visit note dated 06/14/2024 in order to provide a cohesive continuity of the history. The note has been reviewed and edited and updated as necessary. I spent a total of 30 minutes on the date of the service which included preparing to see the patient, [id number] patient care, completing clinical documentation, obtaining and/or reviewing separately obtained history, performing a medically appropriate examination, counseling and educating the patient/family/caregiver, ordering medications, tests, or procedures, communicating with other HCPs (not separately reported), and communicating results to the patient/family/caregiver. Esau Jimenez DO CNOVSP Observed: 12/26/2024 11:30 AM Status: COMPLETED Source: [facility] Visit (SP) Office ([place]) ASHTYN LAURENT ([id number]) 1955 F Date Time Provider Department 12/26/24 11:30 AM ESAU JIMENEZ During your visit today, we recorded the following information about you: Temperature Pulse Blood pressure Weight 97.5 degrees 69/minute 163/101 48.1 kg Esau Jimenez DO 12/26/2024 12:40 PM Signed Oncologic problem(s): 1) EGFR mutation positive metastatic non-small cell lung cancer. HPI: The patient is a 69 yo female with a PMH significant for hypothyroidism (total thyroidectomy--multinodular goiter) and smoking (quit 30 years ago; prior 1/2 ppd x10 years) She developed worsening back pain summer 2021. Pain was in the lower to mid thoracic area. She noticed it more when she was doing yard work. Got to the point where she was can by squad to the emergency room at [facility] on 03/09/2022. A CT of the chest abdomen pelvis was obtained. It demonstrated a 3.6 mm right upper lobe nodule. There was a 4.2 x 3.8 cm mass in the right middle lobe concerning for neoplasm. Additionally there was a pathologic fracture of T12 with less than 50% compression. There was possible mass extending into the spinal canal which might of been causing spinal stenosis. Trace fluid was noted in the pelvis. An MRI of the thoracic spine done the next morning demonstrated a suspect acute mild pathologic compression fracture of the T7 vertebral body with possible 5 mm retropulsion of the spinal canal producing moderate spinal stenosis with abutment of the central spinal cord. Patient was transferred to [facility]. CT-guided biopsy was performed of the spine lesion. Pathology: Bone, T7, core biopsy: - Metastatic adenocarcinoma, compatible with metastasis from lung primary (see comment). Pain was sharp and localized to mid to lower thoracic area but radiates around under costal margins b/l. ER morphine helps. Using bowel regimen. Cannot lie back flat without exacerbating the pain. Previous therapy: 1) Completed palliative radiation to T7 on 04/26/2022. 2) T6 and T7 laminectomy, bilateral T7 pediculectomy and T7 vertebrectomy, T5, T6, T8, T9 bilateral pedicle screws insertion with titanium expandable cage placement at T7 level T5-9 posterolateral fusion with allograft on 08/11/2022. 3) Completed SBRT 04/01/2023 to primary right middle lobe tumor. Pathology: Bone, T7, resection: -Changes consistent with fracture callus. - Negative for malignancy. (See comment) Current therapy: 1) Osimertinib. 04/2022. Presents for ongoing oncologic management. Interim history: Had two cortisone injections for the right sided sacral notch pain. Did not help. Considering injection for possible ischial bursitis. Otherwise, no complaints. No chronic cough. No chest pain. No shortness of breath with moderate exertion. PMH, medications and allergies personally reviewed by me today. Any changes documented in appropriate section. ROS: Constitutional: Denies episodes of fever and night sweats. Neuro: Denies BOSTON, vertigo, dizziness and imbalance. HEENT: No recent change in voice, vision or hearing. Resp: See above. CVS: Denies exertional chest pain, PND, orthopnea and LE edema. GI: Denies dysphagia and odynophagia. Denies reflux, n/v, change in bowel habits and abdominal pain. : Denies dysuria or gross hematuria. Endo: Denies hot flashes. Denies polyuria and polydipsia. Denies heat and cold intolerance. Musculoskeletal: See above. Derm: No recent rash. Has some slight discoloration in both antecubital fossa. Heme: Denies unusual bleeding and unexplained bruising. Psych: Normal mood. PHYSICAL EXAM: Vitals: Blood pressure 163/101, pulse 69, temperature 36.4 ?C (97.5 ?F), temperature source Temporal, weight 48.1 kg (106 lb), last menstrual period 04/05/2014, SpO2 100%. Well-appearing and in no acute distress. EYES: Sclerae are anicteric bilaterally. LYMPHATIC: There is no palpable cervical, supraclavicular or axillary adenopathy. CARDIOVASCULAR: Rhythm is regular. ABDOMEN: The abdomen is nondistended. Extremities: No swelling or edema. SKIN: No rash. NGS/biomarkers/school bus driver/teacher assistant mutation analyses: -BRAF - No variant detected. -EGFR - A sequence change: [id number], p.([id number]) in exon 19 was detected at approximately 34% allelic proportion (depth of coverage at change 6064). -HER2 (ERBB2) - No variant detected. -KRAS - No variant detected. -MET - No variant detected. -PDL-1 95% tumor cells positive. -ROS-negative. -RET-negative. -ALK translocation negative. ASSESSMENT/PLAN: (C34.2) Malignant neoplasm of middle lobe of right lung (HCC) (primary encounter diagnosis) (C79.51) Metastasis to spinal column (HCC) (C34.90) NSCLC with EGFR mutation (HCC) Assessment: -69 yo female who was in very good general health diagnosed with metastatic EGFR mutation (exon 19) NSCLC of the RML with an isolated metastasis to T7. -KPS is 80-90%. -She continues to tolerate osimertinib well. -Status post SBRT to primary lung tumor. - Personally reviewed CT images lung as well as abdomen pelvis. Stable disease overall with decrease in size of radiation scarring right middle lobe. Plan: -CBC/CMP/PHOS/MAG in 3 months. -CBC/CMP/PHOS/MAG/CT C/A/P then OV in 6 months. -q 3 month Zometa. -Follow up with CPM and PCP. Portions of this documentation were copied and pasted from my previous office visit note dated 06/14/2024 in order to provide a cohesive continuity of the history. The note has been reviewed and edited and updated as necessary. I spent a total of 30 minutes on the date of the service which included preparing to see the patient, [id number] patient care, completing clinical documentation, obtaining and/or reviewing separately obtained history, performing a medically appropriate examination, counseling and educating the patient/family/caregiver, ordering medications, tests, or procedures, communicating with other HCPs (not separately reported), and communicating results to the patient/family/caregiver. Esau Jimenez, Allergies As of Date: 12/26/2024 Noted Allergy Reaction NICKEL 09/25/2008 SEPTRA (SULFAMETHOXAZOLE-TRIMETHO*11/03/2005 SULFA (SULFONAMIDE ANTIBIOTICS) 11/03/2005 THIMEROSAL 11/03/2005 TORADOL (KETOROLAC) 03/12/2022 5 - Intolerance Comments: Sweating, anxiety, warmth sensation Date Reviewed: 12/26/2024 Reviewed by: Heena Leong MA - Fully Assessed Reason for Visit: Established Patient [175] Primary Visit Diagnosis:Malignant neoplasm of middle lobe of right lung (HCC) [C34.2] Other Visit Diagnoses:Metastasis to spinal column (HCC) [C79.51] NSCLC with EGFR mutation (HCC) [C34.90] Order(s):CT CHEST W IVCON [[id number]] Order #: [id number] FUTURE iv contrast (will be provided with radiology test)CT Chest W -Inject, intravenously, once for 1 dose.No IV access, insert saline lock prior to the beginning of sedation, infusion, injection of imaging exam. Discontinue saline lock post exam. If Pt. has a central line or IVAD, may access for administration according to line specific nursing protocol. Once exam is complete flush line and de-access according to line specific nursing protocol in the CT contrast administration guidelines link.Disp: 1 eachRfl: 0 CT ABD/PEL W IVCON [[id number]] Order #: [id number] FUTURE iv contrast (will be provided with radiology test)CT ABD/PEL -Inject, intravenously, once for 1 dose.No IV access, insert saline lock prior to the beginning of sedation, infusion, injection of imaging exam. Discontinue saline lock post exam. If Pt. has a central line or IVAD, may access for administration according to line specific nursing protocol. Once exam is complete flush line and de-access according to line specific nursing protocol in the CT contrast administration guidelines link.Disp: 1 eachRfl: 0 enteric contrast (will be provided with radiology test)For CT ABD/PEL W IVCON Routine order Administer, As Directed One Time Only, via Oral, Rectal, both Oral and Rectal, Enteric Tube, Stoma or Indwelling Catheter, Enteric Contrast as designated per enteric contrast guidelinesDisp: 1 eachRfl: 0 Follow-up and Disposition History for Encounter Date Provider Department Center 12/26/2024 [id number] JIMENEZ [facility] Prescriptions as of 12/26/2024 - iv contrast (will be provided with radiology test) CT Chest W -Inject, intravenously, once for 1 dose.No IV access, insert saline lock prior to the beginning of sedation, infusion, injection of imaging exam. Discontinue saline lock post exam. If Pt. has a central line or IVAD, may access for administration according to line specific nursing protocol. Once exam is complete flush line and de-access according to line specific nursing protocol in the CT contrast administration guidelines link. - iv contrast (will be provided with radiology test) CT ABD/PEL -Inject, intravenously, once for 1 dose.No IV access, insert saline lock prior to the beginning of sedation, infusion, injection of imaging exam. Discontinue saline lock post exam. If Pt. has a central line or IVAD, may access for administration according to line specific nursing protocol. Once exam is complete flush line and de-access according to line specific nursing protocol in the CT contrast administration guidelines link. - enteric contrast (will be provided with radiology test) For CT ABD/PEL W IVCON Routine order Administer, As Directed One Time Only, via Oral, Rectal, both Oral and Rectal, Enteric Tube, Stoma or Indwelling Catheter, Enteric Contrast as designated per enteric contrast guidelines - levothyroxine (SYNTHROID) 88 mcg tablet Take 88 mcg by mouth daily before breakfast. Take 1 tablet Tuesday thru Tuesday and NONE on Tuesday - TAGRISSO 80 mg tablet TAKE 1 TABLET DAILY. - metroNIDAZOLE (METROGEL) 0.75 % Topical Gel Apply to affected area two times a day. - TURMERIC ORAL Take 15 mg by mouth once daily. - ubidecarenone Q-10 (CO Q-10) 10 mg cap Take 10 mg by mouth once daily. - CYTOMEL 5 mcg tablet Take 5 mcg by mouth once daily. - naproxen sodium (ALEVE) 220 mg tablet Take 220 mg by mouth two times a day with meals. - acetaminophen (TYLENOL EXTRA STRENGTH) 500 mg tablet Take 650 mg by mouth every 8 hours as needed. - MULTIVITAMIN ORAL Take 1 tablet by mouth once daily. - calcium carbonate (CALCIUM 500 ORAL) Take by mouth once daily. 8033-6246 daily Includes, Vit K1, 2, 7 - SPEAI-0-ADE-TBP-OHC-HLSQ OIL ORAL Take 1 tablet by mouth once daily. - pregabalin (LYRICA) 75 mg capsule Take 75 mg by mouth two times a day. Three times daily - zoledronic acid (ZOMETA) 4 mg/5 mL injection Inject intravenously. - LACTOBACILLUS ACIDOPHILUS (PROBIOTIC ORAL) Take 1 tablet by mouth once daily. - cholecalciferol (VITAMIN D3) 5,000 unit tab Take 1 capsule by mouth one time a week. 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 Author Type: Physical Therapist Type: [id number] Filed: 12/20/2024 16:00 Note Text: [facility] Physical Therapy Plan of Care Certification Patient Name: Ashtyn Laurent : 1955 [facility] #: [id number] Date: 12/20/2024 To: Kathrin Dsouza MD From Therapist: Danay Elizabeth PT RE: Patient Certification/ Recertification Your review, approval and electronic signature are required in order to comply with Payor: MEDICARE / Plan: MEDICARE A AND B / Product Type: Medicare / regulations. The identified Physical Therapy PLAN OF CARE for the patient is as follows: M51.371 Degeneration of intervertebral disc of lumbosacral region with lower extremity pain (primary encounter diagnosis) M79.18 Diffuse myofascial pain syndrome PLAN OF CARE UPDATE: Assessment: Ashtyn Laurent demonstrates difficulty with continued symptoms into the L lumbar spine, quadriceps, buttock and heel. The patient has made minimal progress towards goals. Patient continues to present with impairments in independence in exercise, overall function, and symptom management that interfere with sitting, walking . Current prognosis is Good due to: current objective clinical presentation . The patient will benefit from continued skilled therapy services to meet the updated goals for this plan of care as noted below. Goals updated 12/20/24 Goals for Episode of Care: established 11/15/24 [place] in home exercise program. - Met so far Perform walking uphill without pain. - Not met Increased strength of hip abd, ext, and ER's to 5/5 for improved SIJ stability and decreased - Not assessed Pt will be able to sit for a prolonged period of time without pain/symptoms in 12 weeks or less. - Not met Patient Goals: Reduce the pain Time Frame for Goals and Treatment : 01/10/25 Patient Goals: Reduce the pain Planned Interventions, Frequency, and Duration: 1x every other week, 4 weeks Total Number of Visits Planned: 2 Patient to be seen for Therapeutic exercise (14395), Neuromuscular re-education (09193), Manual therapy (03301), Therapeutic activities (49514), Self-group home management (62956), Gait Training (36030), Patient/Family/Caregiver Education PLAN FOR NEXT VISIT: DDN along femoral nerve pathway For further details regarding this patient refer to the Physical Therapy electronically documented visit dated 12/20/2024. Provider Attestation I have reviewed the treatment plan for Ashtyn Laurent, F# [id number] for the period of 12/20/24 -- 01/31/25, established on 12/20/2024. Signature certifies the need for therapy services. PROGRESS Observed: 12/20/2024 3:47 PM Status: COMPLETED Source: [facility] HNO ID: [id number] Author: DANAY ELIZABETH PT Service: ? Author Type: Physical Therapist Type: Progress Notes Filed: 12/20/2024 16:00 Note Text: Episode Visit Count: 4 Therapist That Will Accept/Oversee The Plan Of Care: Danay Elizabeth PT Start of Care Date: 11/15/24 Onset Date: 08/17/24 Plan of Care Certification Date: 12/20/24 Next Certification Due Date: 01/31/25 Patient Identified by Name and Date of : Yes [facility] PHYSICAL THERAPY PROGRESS REPORT PLAN OF CARE UPDATE: Assessment: Ashtyn Laurent demonstrates difficulty with continued symptoms into the L lumbar spine, quadriceps, buttock and heel. The patient has made minimal progress towards goals. Patient continues to present with impairments in independence in exercise, overall function, and symptom management that interfere with sitting, walking . Current prognosis is Good due to: current objective clinical presentation . The patient will benefit from continued skilled therapy services to meet the updated goals for this plan of care as noted below. Goals updated 12/20/24 Goals for Episode of Care: established 11/15/24 [place] in home exercise program. - Met so far Perform walking uphill without pain. - Not met Increased strength of hip abd, ext, and ER's to 5/5 for improved SIJ stability and decreased - Not assessed Pt will be able to sit for a prolonged period of time without pain/symptoms in 12 weeks or less. - Not met Patient Goals: Reduce the pain Time Frame for Goals and Treatment : 01/10/25 Patient Goals: Reduce the pain Planned Interventions, Frequency, and Duration: 1x every other week, 4 weeks Total Number of Visits Planned: 2 Patient to be seen for Therapeutic exercise (31022), Neuromuscular re-education (18103), Manual therapy (59141), Therapeutic activities (70683), Self-group home management (14767), Gait Training (37684), Patient/Family/Caregiver Education PLAN FOR NEXT VISIT: DDN along femoral nerve pathway Classification Pain Mechanism Classification: Nociceptive Low Back Pain Classification: Symptom Modulation SUBJECTIVE: Both shots did not help. The epidural didnt work. Symptoms are the same with sitting. Pt states that an injection in the bursa at the L ischial tuberosity will take place early January. Patient Goals: Reduce the pain Functional Limitations: sitting, walking Prior Level of Function: Independent without limitations Intake Information: Prescription present Previous Treatment: Injections Pain: Pain Pain Level: (not rated) Pain Location: Leg - Left, Buttocks - Left, Low Back/Lumbar Spine - Left PROMIS Scales 12/13/2024 11/08/2024 08/08/2023 Higher is Better Phys Func - T Score 48 (within normal limits) 50 (within normal limits) 52 (within normal limits) Phys Func - Percentile 42 50 58 Self-Eff Symptom - T Score 46 (Average) 47 (Average) Self-Eff Symptom - Percentile 34 38 08/08/2023 02/07/2023 09/28/2022 Lower is Better Pain Interference - T Score 56 (mild) 54 (within normal limits) 59 (mild) Pain Interference - Percentile 27 34 18 T-scores: mean of general population = 50. 5 points is clinically meaningfully difference Percentiles provide an indication of how the patient's score ranks in relation to the general population. Higher percentile rankings indicate better function/quality of life. 50th percentile is the average of the general population and indicates half of respondents had a worse score. OBJECTIVE MEASURES WITH LEVEL OF FUNCTION: Spine Observations L Lumbar Spine Palpation Tenderness: Paraspinals Lumbar Spine AROM Lumbar Flexion: Normal Lumbar Extension: Normal, Peripheralizing Lumbar R Side [place]: Normal Lumbar L Side [place]: Normal Lumbar R Side-Bend: Normal Lumbar L Side-Bend: Normal Lumbar R Rotation: Normal Lumbar L Rotation: Normal LE Flexibility Flexibility: Quadriceps Flexibility, Hip Flexor Flexibility, Hamstring Flexibility R Hamstring Flexibility: WNL L Hamstring Flexibility: WNL R Hip Flexor Flexibility: WNL L Hip Flexor Flexibility: WNL R Quadriceps Flexibility: Mildly tight L Quadriceps Flexibility: Mildly tight Tight lumbar paraspinals on the L Tight proximal vastus lateralis Tolerated Needling fairly with normal responses TREATMENT: Manual Therapy: 1: All objective measures taken this session 2: DDN along Lumbar paraspinals on the L and L quadriceps muscle belly (vastus lateralis) (See note for details) 3: STM over vastus lateralis Skilled Intervention: Manual skills to improve joint mobility, ROM, and decrease pain. Utilized anatomy knowledge of the therapist, and assessment of patient's response to intervention. Billing Manual TherapyTreatment Minutes: 53 Skilled Treatment Time Minutes (timed and untimed codes): 53 Total Session Time (minutes): 53 Session Start Time : 1452 Session Stop Time : 1545 Danay Elizabeth PT CNTHERAPY Observed: 12/20/2024 3:00 PM Status: COMPLETED Source: [facility] OT/PT/Speech Visit (PTWS) ASHTYN LAURENT ([id number]) 1955 F Date Time Provider Department 12/20/24 3:00 PM DANAY ELIZABETH PTWS Date Time Provider Department Center 12/20/2024 3:00 PM [id number], [facility] PTWS Silvana Jha Reason for Visit: PT Progress Note [1596] Primary Visit Diagnosis:Degeneration of intervertebral disc of lumbosacral region with lower extremity pain [M51.371] Other Visit Diagnosis:Diffuse myofascial pain syndrome [M79.18] Allergies As of Date: 12/20/2024 Noted Allergy Reaction NICKEL 09/25/2008 SEPTRA (SULFAMETHOXAZOLE-TRIMETHO*11/03/2005 SULFA (SULFONAMIDE ANTIBIOTICS) 11/03/2005 THIMEROSAL 11/03/2005 TORADOL (KETOROLAC) 03/12/2022 5 - Intolerance Comments: Sweating, anxiety, warmth sensation Date Reviewed: 12/05/2024 Reviewed by: Kyree Sanchez, RT(R) - Fully Assessed Prescriptions as of 12/20/2024 - levothyroxine (SYNTHROID) 88 mcg tablet Take 88 mcg by mouth daily before breakfast. Take 1 tablet Tuesday thru Tuesday and 1/2 tablet on Tuesday - TAGRISSO 80 mg tablet TAKE 1 TABLET DAILY. - metroNIDAZOLE (METROGEL) 0.75 % Topical Gel Apply to affected area two times a day. - TURMERIC ORAL Take 15 mg by mouth once daily. - ubidecarenone Q-10 (CO Q-10) 10 mg cap Take 10 mg by mouth once daily. - iv contrast (will be provided with radiology test) CT Chest W -Inject, intravenously, once for 1 dose.No IV access, insert saline lock prior to the beginning of sedation, infusion, injection of imaging exam. Discontinue saline lock post exam. If Pt. has a central line or IVAD, may access for administration according to line specific nursing protocol. Once exam is complete flush line and de-access according to line specific nursing protocol in the CT contrast administration guidelines link. - iv contrast (will be provided with radiology test) CT ABD/PEL -Inject, intravenously, once for 1 dose.No IV access, insert saline lock prior to the beginning of sedation, infusion, injection of imaging exam. Discontinue saline lock post exam. If Pt. has a central line or IVAD, may access for administration according to line specific nursing protocol. Once exam is complete flush line and de-access according to line specific nursing protocol in the CT contrast administration guidelines link. - enteric contrast (will be provided with radiology test) For CT ABD/PEL W IVCON Routine order Administer, As Directed One Time Only, via Oral, Rectal, both Oral and Rectal, Enteric Tube, Stoma or Indwelling Catheter, Enteric Contrast as designated per enteric contrast guidelines - CYTOMEL 5 mcg tablet Take 5 mcg by mouth once daily. - iv contrast (will be provided with radiology test) CT ABD/PEL -Inject, intravenously, once for 1 dose.No IV access, insert saline lock prior to the beginning of sedation, infusion, injection of imaging exam. Discontinue saline lock post exam. If Pt. has a central line or IVAD, may access for administration according to line specific nursing protocol. Once exam is complete flush line and de-access according to line specific nursing protocol in the CT contrast administration guidelines link. - enteric contrast (will be provided with radiology test) For CT ABD/PEL W IVCON Routine order Administer, As Directed One Time Only, via Oral, Rectal, both Oral and Rectal, Enteric Tube, Stoma or Indwelling Catheter, Enteric Contrast as designated per enteric contrast guidelines - naproxen sodium (ALEVE) 220 mg tablet Take 220 mg by mouth two times a day with meals. - acetaminophen (TYLENOL EXTRA STRENGTH) 500 mg tablet Take 650 mg by mouth every 8 hours as needed. - MULTIVITAMIN ORAL Take 1 tablet by mouth once daily. - calcium carbonate (CALCIUM 500 ORAL) Take by mouth once daily. 4952-1501 daily Includes, Vit K1, 2, 7 - [id number] OIL ORAL Take 1 tablet by mouth once daily. - pregabalin (LYRICA) 75 mg capsule Take 75 mg by mouth two times a day. Three times daily - zoledronic acid (ZOMETA) 4 mg/5 mL injection Inject intravenously. - LACTOBACILLUS ACIDOPHILUS (PROBIOTIC ORAL) Take 1 tablet by mouth three times a week. Mon., Wed., Fri. - cholecalciferol (VITAMIN D3) 5,000 unit tab Take 1 capsule by mouth one time a week. CT CHEST W IVCON Observed: 12/06/2024 9:50 AM Status: F Source: [facility] * * *Final Report* * * DATE OF EXAM: Dec 06 2024 9:50AM [facility] 0539 - CT CHEST W IVCON / PROCEDURE REASON: multiple diagnoses * * * * Physician Interpretation * * * * EXAMINATION: CT ABD/PEL W IVCON, CT CHEST W IVCON CLINICAL HISTORY: Malignant neoplasm of middle lobe of right lung (HCC) Metastasis to spinal column (HCC) Malignant neoplasm of middle lobe of right lung (HCC) Metastasis to spinal column (HCC) TECHNIQUE: CT of the chest from the thoracic inlet to the upper abdomen was performed following IV contrast. CT of the abdomen and pelvis was performed using standard technique, scanning from just above the dome of the diaphragm to the symphysis pubis. MQ: CTCW_6; CTAP_3 Contrast: IV: 96 ml of Omnipaque 350 Oral: 10 ml of Omni 240 10-25ml diluted with water CT Radiation dose: Integrated Dose-length product (DLP) for this visit = 482 mGy*cm. CT Dose Reduction Employed: Automated exposure control(AEC) and iterative recon COMPARISON: CT of the chest, abdomen and pelvis 06/07/2024 and prior RESULT: Limitations: None. Chest: Lines, tubes, and devices: None. Lung parenchyma and airways: Continued gradually decreased size of the 2.7 x 1.5 cm masslike lesion in the medial right middle lobe, reflecting increasing atelectatic changes in these area of radiation. No new nodular component. Stable linear scarring in the posterior lateral basal left lower lobe. No consolidation. No suspicious pulmonary nodule. The central airways are patent. Pleural space: No pleural effusion. No pleural thickening. Lower neck, lymph nodes, and mediastinum: Thyroidectomy. No lymphadenopathy in the supraclavicular, axillary, mediastinal, or hilar regions. Small calcified lymph nodes in the subcarinal region are unchanged since 2021. Heart, pericardium, and thoracic vessels: The thoracic aorta and main pulmonary artery are normal in caliber. The cardiac chambers are normal in size. No significant coronary artery calcifications are noted, although the study is not optimized for coronary assessment. No pericardial effusion or thickening. Abdomen / Pelvis: Liver: No mass. Biliary: No bile duct dilation. Gallbladder is unremarkable. Spleen: No mass. No splenomegaly. Pancreas: No mass or duct dilation. Adrenals: No mass. Kidneys: Symmetric nephrograms. Mild urothelial thickening in the left renal pelvis is decreased. GI tract: No dilation or wall thickening. Mild mucosal thickening of the distal colon and rectum, suggest mild inflammation likely accentuated due to underdistention. Lymph nodes: No abdominal or pelvic lymphadenopathy. Mesentery/Peritoneum: No ascites or mass. Retroperitoneum: No mass. Vasculature: - Abdominal aorta and iliac arteries: No aneurysm. - Celiac and SMA: Patent without stenosis. - Portal venous system (SMV, splenic vein, portal vein and branches): Patent. - Hepatic veins: Patent. Pelvis: No mass, ascites or fluid collection. Uterus and adnexa are unremarkable. Musculoskeletal soft tissues: Bones: Pectus excavatum deformity. Mild degenerative changes of the thoracolumbar spine. Posterior vertebral body fusion at T 5-61 T8 and T9, caging although pathologic fracture of T7 with unchanged 0.5 cm retropulsion of the posterior endplate. Stable 1.0 cm mildly sclerotic focus in the spinous process of L1 (800 HU), 0.5 cm focus in the left acetabulum and 1.0 cm ill-defined sclerosis in the right acetabulum, as noted 02/2023 and not hypermetabolic, new since 03/2022 and possible posttreatment changes. Dystrophic calcifications in the anterior left hip joint. Soft tissues: Unremarkable Filter Cloth Maker (topogram) images: No additional findings. IMPRESSION: Chest: 1. Increasing scarring of the right middle lobe, no new nodular component. 2. No new lung nodules or lymphadenopathy. Abdomen / Pelvis: 1. No new lymphadenopathy or suspicious lesion in the abdomen or pelvis. 2. Resolving left urothelial thickening, decreasing mucosal thickening in the left colon. 3. Stable sclerotic lesions of the lumbar spine and hips without hypermetabolism, possible posttreatment changes. Supervisor Plating And Point Assembly: PSCB Transcribe Date/Time: Dec 12 2024 11:56A Dictated by : ANDIE KAT MD This examination was interpreted and the report reviewed and electronically signed by: ANDIE KAT MD on Dec 12 2024 12:28PM EST [id number] CT ABD/PEL W IVCON Observed: 12/06/2024 9:50 AM Status: F Source: [facility] * * *Final Report* * * DATE OF EXAM: Dec 06 2024 9:50AM [facility] 0530 - CT ABD/PEL W IVCON / PROCEDURE REASON: multiple diagnoses * * * * Physician Interpretation * * * * EXAMINATION: CT ABD/PEL W IVCON, CT CHEST W IVCON CLINICAL HISTORY: Malignant neoplasm of middle lobe of right lung (HCC) Metastasis to spinal column (HCC) Malignant neoplasm of middle lobe of right lung (HCC) Metastasis to spinal column (HCC) TECHNIQUE: CT of the chest from the thoracic inlet to the upper abdomen was performed following IV contrast. CT of the abdomen and pelvis was performed using standard technique, scanning from just above the dome of the diaphragm to the symphysis pubis. MQ: CTCW_6; CTAP_3 Contrast: IV: 96 ml of Omnipaque 350 Oral: 10 ml of Omni 240 10-25ml diluted with water CT Radiation dose: Integrated Dose-length product (DLP) for this visit = 482 mGy*cm. CT Dose Reduction Employed: Automated exposure control(AEC) and iterative recon COMPARISON: CT of the chest, abdomen and pelvis 06/07/2024 and prior RESULT: Limitations: None. Chest: Lines, tubes, and devices: None. Lung parenchyma and airways: Continued gradually decreased size of the 2.7 x 1.5 cm masslike lesion in the medial right middle lobe, reflecting increasing atelectatic changes in these area of radiation. No new nodular component. Stable linear scarring in the posterior lateral basal left lower lobe. No consolidation. No suspicious pulmonary nodule. The central airways are patent. Pleural space: No pleural effusion. No pleural thickening. Lower neck, lymph nodes, and mediastinum: Thyroidectomy. No lymphadenopathy in the supraclavicular, axillary, mediastinal, or hilar regions. Small calcified lymph nodes in the subcarinal region are unchanged since 2021. Heart, pericardium, and thoracic vessels: The thoracic aorta and main pulmonary artery are normal in caliber. The cardiac chambers are normal in size. No significant coronary artery calcifications are noted, although the study is not optimized for coronary assessment. No pericardial effusion or thickening. Abdomen / Pelvis: Liver: No mass. Biliary: No bile duct dilation. Gallbladder is unremarkable. Spleen: No mass. No splenomegaly. Pancreas: No mass or duct dilation. Adrenals: No mass. Kidneys: Symmetric nephrograms. Mild urothelial thickening in the left renal pelvis is decreased. GI tract: No dilation or wall thickening. Mild mucosal thickening of the distal colon and rectum, suggest mild inflammation likely accentuated due to underdistention. Lymph nodes: No abdominal or pelvic lymphadenopathy. Mesentery/Peritoneum: No ascites or mass. Retroperitoneum: No mass. Vasculature: - Abdominal aorta and iliac arteries: No aneurysm. - Celiac and SMA: Patent without stenosis. - Portal venous system (SMV, splenic vein, portal vein and branches): Patent. - Hepatic veins: Patent. Pelvis: No mass, ascites or fluid collection. Uterus and adnexa are unremarkable. Musculoskeletal soft tissues: Bones: Pectus excavatum deformity. Mild degenerative changes of the thoracolumbar spine. Posterior vertebral body fusion at T 5-61 T8 and T9, caging although pathologic fracture of T7 with unchanged 0.5 cm retropulsion of the posterior endplate. Stable 1.0 cm mildly sclerotic focus in the spinous process of L1 (800 HU), 0.5 cm focus in the left acetabulum and 1.0 cm ill-defined sclerosis in the right acetabulum, as noted 02/2023 and not hypermetabolic, new since 03/2022 and possible posttreatment changes. Dystrophic calcifications in the anterior left hip joint. Soft tissues: Unremarkable Filter Cloth Maker (topogram) images: No additional findings. IMPRESSION: Chest: 1. Increasing scarring of the right middle lobe, no new nodular component. 2. No new lung nodules or lymphadenopathy. Abdomen / Pelvis: 1. No new lymphadenopathy or suspicious lesion in the abdomen or pelvis. 2. Resolving left urothelial thickening, decreasing mucosal thickening in the left colon. 3. Stable sclerotic lesions of the lumbar spine and hips without hypermetabolism, possible posttreatment changes. Supervisor Plating And Point Assembly: PSCB Transcribe Date/Time: Dec 12 2024 11:56A Dictated by : ANDIE KAT MD This examination was interpreted and the report reviewed and electronically signed by: ANDIE KAT MD on Dec 12 2024 12:28PM EST [id number] PROGRESS Observed: 12/06/2024 9:20 AM Status: COMPLETED [id number] Author: KYREE SANCHEZ RT(R) Service: ? Author Type: Forensic Investigator Type: Progress Notes Filed: 12/06/2024 13:31 Note Text: Radiology Service Progress Note DATE OF SERVICE: December 06, 2024 TIME: 1:31 PM PATIENT IDENTITY VERIFICATION COMPLETED USING TWO (2) STANDARD IDENTIFIERS: Name and Date of confirmed by patient verbally. FALL SCREENING: Has the patient had 2 falls in the last year or 1 fall with injury or currently using an Ambulatory Assistive Device (Walker, Cane, Wheelchair, Crutches, etc.)? No PATIENT GENDER DATA: Assigned female at . status: : No status: NO. PATIENT RELEVANT IMPLANT DATA REVIEWED: Yes PATIENT PRESENTS WITH AN IMPLANTABLE OR ATTACHED DUPLICATING MACHINE SERVICER: No ALLERGIES: Reviewed and unchanged CONTRAST ALLERGY: NO. EXAM: CT -CONTRAST INDUCED NEPHROPATHY RISK FACTORS: Patient age > 60 years CREATININE: Creatinine Date Value Ref Range Status 11/30/2024 0.86 0.58 - 0.96 mg/dL Final 09/07/2024 0.84 0.58 - 0.96 mg/dL Final 06/07/2024 0.79 0.58 - 0.96 mg/dL Final Estimated Glomerular Filtration Rate Date Value Ref Range Status 11/30/2024 74 >=60 mL/min/1.73m? Final Comment: Estimated Glomerular Filtration Rate (eGFR) is calculated using the 2020 CKD-EPI creatinine equation. This equation utilizes serum creatinine, sex, and age as parameters. The creatinine assay has traceable calibration to isotope dilution-mass spectrometry. Refer to KDIGO guidelines for clinical interpretation. In patients with unstable renal function, e.g. those with acute kidney injury, the eGFR may not accurately reflect actual GFR. eGFR- Date Value Ref Range Status 01/13/2009 >60 Final P.O.C.T. RESULTS: POC done: Yes, See Lab Tab December 06, 2024 TREATMENT: N/A PERIPHERAL IV DATA: Ambulatory: A peripheral IV was started in the Left antecubital site with a Angio cath: 22 gauge. RADIOLOGY DEPARTMENT: CT; Exam(s) Completed: Chest Abdomen Pelvis SIGNATURE: RT Savita(R) PATIENT NAME: Ashtyn Laurent DATE: December 06, 2024 TIME: 1:31 PM CNTHERAPY Observed: 12/04/2024 1:30 PM Status: COMPLETED Source: [facility] OT/PT/Speech Visit (PTWS) MEHRANASHTYN L ([id number]) 1955 F Date Time Provider Department 12/04/24 1:30 PM DANAY ELIZABETH PTWS Date Time Provider Department Center 12/04/2024 1:30 PM [id number], [facility] PTWS Silvana Jha Reason for Visit: Physical Therapy [503] Primary Visit Diagnosis:Degeneration of intervertebral disc of lumbosacral region with lower extremity pain [M51.371] Other Visit Diagnosis:Diffuse myofascial pain syndrome [M79.18] Allergies As of Date: 12/04/2024 Noted Allergy Reaction NICKEL 09/25/2008 SEPTRA (SULFAMETHOXAZOLE-TRIMETHO*11/03/2005 SULFA (SULFONAMIDE ANTIBIOTICS) 11/03/2005 THIMEROSAL 11/03/2005 TORADOL (KETOROLAC) 03/12/2022 5 - Intolerance Comments: Sweating, anxiety, warmth sensation Date Reviewed: 11/30/2024 Reviewed by: Oziel Arias, RN - Fully Assessed Prescriptions as of 12/04/2024 - levothyroxine (SYNTHROID) 88 mcg tablet Take 88 mcg by mouth daily before breakfast. Take 1 tablet Tuesday thru Tuesday and 1/2 tablet on Tuesday - TAGRISSO 80 mg tablet TAKE 1 TABLET DAILY. - metroNIDAZOLE (METROGEL) 0.75 % Topical Gel Apply to affected area two times a day. - TURMERIC ORAL Take 15 mg by mouth once daily. - ubidecarenone Q-10 (CO Q-10) 10 mg cap Take 10 mg by mouth once daily. - iv contrast (will be provided with radiology test) CT Chest W -Inject, intravenously, once for 1 dose.No IV access, insert saline lock prior to the beginning of sedation, infusion, injection of imaging exam. Discontinue saline lock post exam. If Pt. has a central line or IVAD, may access for administration according to line specific nursing protocol. Once exam is complete flush line and de-access according to line specific nursing protocol in the CT contrast administration guidelines link. - iv contrast (will be provided with radiology test) CT ABD/PEL -Inject, intravenously, once for 1 dose.No IV access, insert saline lock prior to the beginning of sedation, infusion, injection of imaging exam. Discontinue saline lock post exam. If Pt. has a central line or IVAD, may access for administration according to line specific nursing protocol. Once exam is complete flush line and de-access according to line specific nursing protocol in the CT contrast administration guidelines link. - enteric contrast (will be provided with radiology test) For CT ABD/PEL W IVCON Routine order Administer, As Directed One Time Only, via Oral, Rectal, both Oral and Rectal, Enteric Tube, Stoma or Indwelling Catheter, Enteric Contrast as designated per enteric contrast guidelines - CYTOMEL 5 mcg tablet Take 5 mcg by mouth once daily. - iv contrast (will be provided with radiology test) CT ABD/PEL -Inject, intravenously, once for 1 dose.No IV access, insert saline lock prior to the beginning of sedation, infusion, injection of imaging exam. Discontinue saline lock post exam. If Pt. has a central line or IVAD, may access for administration according to line specific nursing protocol. Once exam is complete flush line and de-access according to line specific nursing protocol in the CT contrast administration guidelines link. - enteric contrast (will be provided with radiology test) For CT ABD/PEL W IVCON Routine order Administer, As Directed One Time Only, via Oral, Rectal, both Oral and Rectal, Enteric Tube, Stoma or Indwelling Catheter, Enteric Contrast as designated per enteric contrast guidelines - naproxen sodium (ALEVE) 220 mg tablet Take 220 mg by mouth two times a day with meals. - acetaminophen (TYLENOL EXTRA STRENGTH) 500 mg tablet Take 650 mg by mouth every 8 hours as needed. - MULTIVITAMIN ORAL Take 1 tablet by mouth once daily. - calcium carbonate (CALCIUM 500 ORAL) Take by mouth once daily. 4873-2739 daily Includes, Vit K1, 2, 7 - [id number] OIL ORAL Take 1 tablet by mouth once daily. - pregabalin (LYRICA) 75 mg capsule Take 75 mg by mouth two times a day. Three times daily - zoledronic acid (ZOMETA) 4 mg/5 mL injection Inject intravenously. - LACTOBACILLUS ACIDOPHILUS (PROBIOTIC ORAL) Take 1 tablet by mouth three times a week. Mon., Wed., Fri. - cholecalciferol (VITAMIN D3) 5,000 unit tab Take 1 capsule by mouth one time a week. PROGRESS Observed: 12/04/2024 1:26 PM Status: COMPLETED Source: [facility] HNO ID: [id number] Author: DANAY ELIZABETH PT Service: ? Author Type: Physical Therapist Type: Progress Notes Filed: 12/04/2024 14:38 Note Text: Episode Visit Count: 3 Therapist That Will Accept/Oversee The Plan Of Care: Danay Elizabeth PT Start of Care Date: 11/15/24 Onset Date: 08/17/24 Plan of Care Certification Date: 11/15/24 Next Certification Due Date: 12/20/24 Patient Identified by Name and Date of : Yes [facility] PHYSICAL THERAPY TREATMENT NOTE ASSESSMENT: Ashtyn Laurent tolerated the session with no issues. She demonstrated continued symptoms with no change in heel symptoms and only temporary changes in gluteal and anterior thigh symptoms. The patient will continue to benefit from ongoing skilled physical therapy to progress toward set goals. PLAN FOR NEXT VISIT: Continue to evaluate pt's symptoms SUBJECTIVE: Things still feel the same. Pt has decided to go ahead with the injections tomorrow. Pain: Pain Pain Level: (not rated) Pain Location: Leg - Left, Hip - Left OBJECTIVE MEASURES WITH LEVEL OF FUNCTION: Lumbar Spine AROM Lumbar Flexion: Normal LE Flexibility Flexibility: Quadriceps Flexibility, Hip Flexor Flexibility, Hamstring Flexibility R Hamstring Flexibility: WNL L Hamstring Flexibility: WNL R Hip Flexor Flexibility: WNL L Hip Flexor Flexibility: WNL R Quadriceps Flexibility: Mildly tight L Quadriceps Flexibility: Mildly tight Special Tests - Hip and [facility] Tests: SLR Test SLR Test: Left Negative Tender to palpation of the L hip abductor Pressure around the L PSIS temporarily abolishes pt's gluteal symptoms but this returns quickly after pressure is released TREATMENT: Manual Therapy: 1: breaking bread opening technique L L4/5 and L3/4 grade 3 x 10 2: Opening mobilization L4/5 L in sidelying x 5 holding 10 sec 3: Lumbar traction in supine using belt and stool x 10 min Skilled Intervention: Manual skills to improve joint mobility, ROM, and decrease pain. Utilized anatomy knowledge of the therapist, and assessment of patient's response to intervention. Billing Manual TherapyTreatment Minutes: 61 Skilled Treatment Time Minutes (timed and untimed codes): 61 Total Session Time (minutes): 61 Session Start Time : 1326 Session Stop Time : 1427 Danay Elizabeth PT COMP METAB 2000 PNL SERPL Collected: 9:49 AM Status: F Source: [facility] Order Comment: Specimen Type : BLOOD SPECIMEN Ordering Facility: [facility] Address: [address] [place] [address] TYPE CODE TESTS RESULT OUT OF RANGE REFERENCE UNITS LAB 2885-2(LOINC) Prot SerPl-mCnc 7.2 6.3-8.0 g/dL LAB 1751-7(LOINC) Albumin SerPl-mCnc 4.8 3.9-4.9 g/dL LAB 09234-6(LOINC) Calcium SerPl-mCnc 9.2 8.5-10.2 mg/dL LAB 1975-2(LOINC) Bilirub SerPl-mCnc 0.8 0.2-1.3 mg/dL LAB 6768-6(LOINC) ALP SerPl-cCnc 45 34-123 U/L LAB 1920-8(LOINC) AST SerPl-cCnc 40 High 13-35 U/L LAB 1742-6(LOINC) ALT SerPl-cCnc 24 7-38 U/L LAB 2345-7(LOINC) Glucose SerPl-mCnc 111 High 74-99 mg/dL Result Comment: The [place] [employer] (ADA) provides guidance for cutoff values for fasting glucose and random glucose. The ADA defines fasting as no caloric intake for at least 8 hours. Fasting plasma glucose results between 100 to 125 mg/dL indicate increased risk for diabetes (prediabetes). Fasting plasma glucose results greater than or equal to 126 mg/dL meet the criteria for diagnosis of diabetes. In the absence of unequivocal hyperglycemia, results should be confirmed by repeat testing. In a patient with classic symptoms of hyperglycemia or hyperglycemic crisis, random plasma glucose results greater than or equal to 200 mg/dL meet the criteria for diagnosis of diabetes. Reference: Standards of Medical Care in Diabetes 2016, [place] [employer]. Diabetes Care. 2016.39(Suppl 1). LAB 3094-0(LOINC) BUN SerPl-mCnc 14 7-21 mg/ dL LAB 2160-0(LOINC) Creat SerPl-mCnc 0.86 0.58-0.96 mg/dL LAB 2951-2(LOINC) Sodium SerPl-sCnc 131 Low 136-144 mmol/L LAB 2823-3(LOINC) Potassium SerPl-sCnc 4.5 3.7-5.1 mmol/L LAB 2075-0(LOINC) Chloride SerPl-sCnc 92 Low 98-107 mmol/L LAB 2028-9(LOINC) CO2 SerPl-sCnc 26 22-30 mmo l/L LAB 02943-8(LOINC) Anion Gap SerPl-sCnc 13 8-15 mmol/L LAB 28096-3(LOINC) Creatinine + eGFR Pnl SerPlBld 74 >=60 mL/min/1 .73m??? Result Comment: Estimated Gl omerular Filtration Rate (eGFR) is calculated using the 2020 CKD-EPI creatinine equation. This equation utilizes serum creatinine, sex, and age as parameters. The creatinine assay has traceable calibration to isotope dilution-mass spectrometry. Refer to KDIGO guidelines for clinical interpretation. In patients with unstable renal function, e.g. those with acute kidney injury, the eGFR may not accurately reflect actual GFR. Performed By: #### 05992-1, 2777-1, 30482-4 #### [facility] CLIA [id number] [address] [place] [address] [place] MAGNESIUM SERPL-MCNC Collected: 11/30/2024 9:49 AM S tatus: F Source: [facility] Order Comment: Specimen Type : BLOOD SPECIMEN Ordering Facility: [facility] Address: [address] [place] [address] TYPE CODE TESTS RESULT OUT OF RANGE REFERENCE UNITS LAB 18855-1(LOINC) Magnesium SerPl-mCnc 2.2 1.7-2.3 mg/dL Performed By: #### 37121-7, 277-1, #### [facility] CLIA [id number] [address] [place] [address] [place] PHOSPHATE SERPL-MCNC Collected: 11/30/2024 9:49 AM S tatus: F Source: [facility] Order Comment: Specimen Type : BLOOD SPECIMEN Ordering Facility: [facility] Address: [address] [place] [address] TYPE CODE TESTS RESULT OUT OF RANGE REFERENCE UNITS LAB 2777-1(LOINC) Phosphate SerPl-mCnc 4.2 2.7-4.8 mg/dL Performed By: #### 27985-9, 27703-05, #### [facility] CLIA [id number] [address] [place] [address] [place] CBC W AUTO DIFF BLD Collected: 11/30/2024 9:[address] atus: F Source: [facility] Order Comment: Specimen Type : BLOOD SPECIMEN Ordering Facility: [facility] Address: [address] [place] [address] TYPE CODE TESTS RESULT OUT OF RANGE REFERENCE UNITS LAB 6690-2(LOINC) WBC # Bld Auto 4.19 3.70-11.00 k/uL LAB 789-8([facility]) RBC # Bld Auto 3.96 3.90-5.20 m/ uL LAB 718-7([facility]) Hgb Bld-mCnc 13.1 11.5-15.5 g/dL LAB 4544-3([facility]) Hct VFr Bld Auto 38.2 36.0-46.0 % LAB 787-2([facility]) MCV RBC Auto 96.5 80.0-100.0 fL LAB 785-6([facility]) MCH RBC Qn Auto 33.1 26.0-34.0 p g LAB 786-4([facility]) MCHC RBC Auto-mCnc 34.3 30.5-36.0 g/dL LAB 39862-9([facility]) RDW RBC-Rto 13.2 11.5-15.0 % LAB 777-3([facility]) Platelet # Bld Auto 264 150-400 k/uL LAB 33493-3([facility]) PMV Bld Auto 9.2 9.0-12.7 fL LAB 770-8([facility]) Neutrophils/leuk NFr Bld Auto 59.5 % LAB 751-8([facility]) Neutrophils # Bld Auto 2.49 1.45-7.50 k/uL LAB 736-9([facility]) Lymphocytes/leuk NFr Bld Auto 21.7 % LAB 731-0([facility]) Lymphocytes # Bld Auto 0.91 Low 1.00-4.00 k/uL LAB 5905-5([facility]) Monocytes/leuk NFr Bld Auto 15.3 % LAB 742-7([facility]) Monocytes # Bld Auto 0.64 <0.87 k/uL LAB 713-8([facility]) Eosinophil/leuk NFr Bld Auto 2.1 % LAB 711-2([facility]) Eosinophil # Bld Auto 0.09 <0.46 k/uL LAB 706-2([facility]) Basophils/leuk NFr Bld Auto 1.2 % LAB 704-7([facility]) Basophils # Bld Auto 0.05 <0.11 k/uL LAB 35106-0([facility]) Imm Granulocytes/harish k NFr Bld Auto 0.2 % LAB 73830-4(LOINC) Imm Granulocytes # Bld Auto <0.03 <0.10 k/uL LAB 05595-5(LOINC) nRBC/100 WBC Bld-Rto 0.0 /100 WBC LAB 771-6(LOINC) nRBC # Bld Auto <0.01 <0.01 k/u L LAB 15175-8(LOINC) Differential method Bld Auto Performed By: #### 54223-4 # ### [facility] CLIA [id number] [address] [place], [place] [id number] [place] [address] PROGRESS Observed: 11/27/2024 2:15 PM Status: COMPLETED Source: [facility] HNO ID: [id number] Author: DANAY ELIZABETH PT Service: ? Author Type: Physical Therapist Type: Progress Notes Filed: 11/27/2024 15:08 Note Text: Episode Visit Count: 2 Therapist That Will Accept/Oversee The Plan Of Care: Danay Elizabeth PT Start of Care Date: 11/15/24 Onset Date: 08/17/24 Plan of Care Certification Date: 11/15/24 Next Certification Due Date: 12/20/24 Patient Identified by Name and Date of : Yes REHABILITATION AND SPORTS THERAPY PHYSICAL THERAPY TREATMENT NOTE ASSESSMENT: Ashtyn Laurent tolerated the session with no issues. She demonstrated no change in symptoms at the end of the session compared to the beginning of the session, but did have some relief during the session. The patient will continue to benefit from ongoing skilled physical therapy to progress toward set goals. PLAN FOR NEXT VISIT: STM over piriformis muscle SUBJECTIVE: Not feeling any better at this point. Pain: Pain Pain Level: (not rated) Pain Location: Leg - Left, Hip - Left OBJECTIVE MEASURES WITH LEVEL OF FUNCTION: Slightly tight quadriceps bilaterally Negative L SLR test L hip ext strength 4/5 No tender Tp's in the lumbar paraspinals Pelvic alignment is WNL No leg length discrepancy observed TREATMENT: Therapeutic Exercise: 1: PPU x 10 (Some reported decrease in L heel symptoms) 2: PPU with R hip SG 2 x 10 (Further improvement of symptoms in the L heel) 3: SL bridge with strap for glute isolation x 10 Skilled Intervention: Patient was educated in proper exercise technique and purpose for exercises. Provided written instruction for home exercise program to facilitate proper performance and compliance. Correct performance of therapeutic exercises was facilitated with verbal cuing. Billing Therapeutic Exercise Treatment Minutes: 50 Skilled Treatment Time Minutes (timed and untimed codes): 50 Total Session Time (minutes): 50 Session Start Time : 1415 Session Stop Time : 1505 Danay Elizabeth PT CNTHERAPY Observed: 11/27/2024 2:15 PM Status: COMPLETED Source: [facility] OT/PT/Speech Visit (PTWS) ASHTYN LAURENT ([id number]) 1955 F Date Time Provider Department 11/27/24 2:15 PM DANAY ELIZABETH PTESTIVEN Date Time Provider Department Center 11/27/2024 2:15 PM [id number], [facility] PTWS Silvana Jha Reason for Visit: Physical Therapy [503] Primary Visit Diagnosis:Degeneration of intervertebral disc of lumbosacral region with lower extremity pain [M51.371] Other Visit Diagnosis:Diffuse myofascial pain syndrome [M79.18] Allergies As of Date: 11/27/2024 Noted Allergy Reaction NICKEL 09/25/2008 SEPTRA (SULFAMETHOXAZOLE-TRIMETHO*11/03/2005 SULFA (SULFONAMIDE ANTIBIOTICS) 11/03/2005 THIMEROSAL 11/03/2005 TORADOL (KETOROLAC) 03/12/2022 5 - Intolerance Comments: Sweating, anxiety, warmth sensation Date Reviewed: 09/07/2024 Reviewed by: Noah Jenkins, RN - Fully Assessed Prescriptions as of 11/27/2024 - levothyroxine (SYNTHROID) 88 mcg tablet Take 88 mcg by mouth daily before breakfast. Take 1 tablet Tuesday thru Tuesday and 1/2 tablet on Tuesday - TAGRISSO 80 mg tablet TAKE 1 TABLET DAILY. - metroNIDAZOLE (METROGEL) 0.75 % Topical Gel Apply to affected area two times a day. - TURMERIC ORAL Take 15 mg by mouth once daily. - ubidecarenone Q-10 (CO Q-10) 10 mg cap Take 10 mg by mouth once daily. - iv contrast (will be provided with radiology test) CT Chest W -Inject, intravenously, once for 1 dose.No IV access, insert saline lock prior to the beginning of sedation, infusion, injection of imaging exam. Discontinue saline lock post exam. If Pt. has a central line or IVAD, may access for administration according to line specific nursing protocol. Once exam is complete flush line and de-access according to line specific nursing protocol in the CT contrast administration guidelines link. - iv contrast (will be provided with radiology test) CT ABD/PEL -Inject, intravenously, once for 1 dose.No IV access, insert saline lock prior to the beginning of sedation, infusion, injection of imaging exam. Discontinue saline lock post exam. If Pt. has a central line or IVAD, may access for administration according to line specific nursing protocol. Once exam is complete flush line and de-access according to line specific nursing protocol in the CT contrast administration guidelines link. - enteric contrast (will be provided with radiology test) For CT ABD/PEL W IVCON Routine order Administer, As Directed One Time Only, via Oral, Rectal, both Oral and Rectal, Enteric Tube, Stoma or Indwelling Catheter, Enteric Contrast as designated per enteric contrast guidelines - CYTOMEL 5 mcg tablet Take 5 mcg by mouth once daily. - iv contrast (will be provided with radiology test) CT ABD/PEL -Inject, intravenously, once for 1 dose.No IV access, insert saline lock prior to the beginning of sedation, infusion, injection of imaging exam. Discontinue saline lock post exam. If Pt. has a central line or IVAD, may access for administration according to line specific nursing protocol. Once exam is complete flush line and de-access according to line specific nursing protocol in the CT contrast administration guidelines link. - enteric contrast (will be provided with radiology test) For CT ABD/PEL W IVCON Routine order Administer, As Directed One Time Only, via Oral, Rectal, both Oral and Rectal, Enteric Tube, Stoma or Indwelling Catheter, Enteric Contrast as designated per enteric contrast guidelines - naproxen sodium (ALEVE) 220 mg tablet Take 220 mg by mouth two times a day with meals. - acetaminophen (TYLENOL EXTRA STRENGTH) 500 mg tablet Take 650 mg by mouth every 8 hours as needed. - MULTIVITAMIN ORAL Take 1 tablet by mouth once daily. - calcium carbonate (CALCIUM 500 ORAL) Take by mouth once daily. 7574-9563 daily Includes, Vit K1, 2, 7 - [id number]-[id number]-WLCF OIL ORAL Take 1 tablet by mouth once daily. - pregabalin (LYRICA) 75 mg capsule Take 75 mg by mouth two times a day. Three times daily - zoledronic acid (ZOMETA) 4 mg/5 mL injection Inject intravenously. - LACTOBACILLUS ACIDOPHILUS (PROBIOTIC ORAL) Take 1 tablet by mouth three times a week. Mon., Wed., Fri. - cholecalciferol (VITAMIN D3) 5,000 unit tab Take 1 capsule by mouth one time a week. [id number] Observed: 11/16/2024 12:49 PM Status: COMPLETED Source: [facility] HNO ID: [id number] Author: DANAY ELIZABETH PT Service: ? Author Type: Physical Therapist Type: [id number] Filed: 11/16/2024 12:49 Note Text: [facility] Physical Therapy Plan of Care Certification Patient Name: Ashtyn Laurent : 1955 [facility] #: [id number] Date: 11/15/2024 To: Kathrin Dsouza MD From Therapist: Danay Elizabeth PT RE: Patient Certification/ Recertification Your review, approval and electronic signature are required in order to comply with Payor: MEDICARE / Plan: MEDICARE A AND B / Product Type: Medicare / regulations. The identified Physical Therapy PLAN OF CARE for the patient is as follows: M51.371 Degeneration of intervertebral disc of lumbosacral region with lower extremity pain (primary encounter diagnosis) M79.18 Diffuse myofascial pain syndrome PLAN OF CARE: Assessment: Ashtyn Laurent presents with chief complaint of LB and L leg pain that interferes with sitting, walking (Walking uphill) . The patient presents with impairments in independence in exercise, overall function, strength, and symptom management. PROMIS? (Patient-Reported Outcomes Measurement Information System) scores were reviewed and identified as within normal limits. Prognosis for therapy is Good due to: current objective clinical presentation . Pt demonstrates a positive active SLR on the L and demonstrates weakness of the hip abductors and external rotators as today's most pertinent findings. The patient will benefit from skilled therapy services to meet the goals established for this plan of care as noted below. Classification Pain Mechanism Classification: Nociceptive Goals for Episode of Care: established 11/15/24 [place] in home exercise program. Perform walking uphill without pain. Increased strength of hip abd, ext, and ER's to 5/5 for improved SIJ stability and decreased Pt will be able to sit for a prolonged period of time without pain/symptoms in 12 weeks or less. Patient Goals: Reduce the pain Time Frame for Goals and Treatment : 01/10/25 Planned Interventions, Frequency, and Duration: Current Frequency: 1x/week Duration: 4 weeks Total Number of Visits Planned: 4 Planned Treatment Interventions: Therapeutic exercise (06996), Neuromuscular re-education (88122), Manual therapy (67201), Therapeutic activities (79951), Self-group home management (70243), Gait Training (76306), Patient/Family/Caregiver Education PLAN FOR NEXT VISIT: Focus on heavily loading the glute med/min, hip extensors, and hip ERs. Test hip ext strength. Patient demonstrates good understanding of plan of care and treatment. The above goals and plan of care were discussed and agreed upon by patient/family. For further details regarding this patient refer to the Physical Therapy electronically documented visit dated 11/15/2024. Provider Attestation I have reviewed the treatment plan for Ashtyn Laurent, [facility]# [id number] for the period of 11/15/24 -- 12/20/24, established on 11/15/2024. Signature certifies the need for therapy services. CNTHERAPY Observed: 11/15/2024 2:00 PM Status: COMPLETED Source: [facility] OT/PT/Speech Visit (PTWS) ASHTYN LAURENT ([id number]) 1955 F Date Time Provider Department 11/15/24 2:00 PM DANAY ELIZABETH PTWS Date Time Provider Department Center 11/15/2024 2:00 PM [id number], [facility] Silvana Jha Reason for Visit: PT Monse [747] Primary Visit Diagnosis:Degeneration of intervertebral disc of lumbosacral region with lower extremity pain [M51.371] Other Visit Diagnosis:Diffuse myofascial pain syndrome [M79.18] Allergies As of Date: 11/15/2024 Noted Allergy Reaction NICKEL 09/25/2008 SEPTRA (SULFAMETHOXAZOLE-TRIMETHO*11/03/2005 SULFA (SULFONAMIDE ANTIBIOTICS) 11/03/2005 THIMEROSAL 11/03/2005 TORADOL (KETOROLAC) 03/12/2022 5 - Intolerance Comments: Sweating, anxiety, warmth sensation Date Reviewed: 09/07/2024 Reviewed by: Noah Jenkins, BRANDON - Fully Assessed Prescriptions as of 11/16/2024 - levothyroxine (SYNTHROID) 88 mcg tablet Take 88 mcg by mouth daily before breakfast. Take 1 tablet Tuesday thru Tuesday and 1/2 tablet on Tuesday - TAGRISSO 80 mg tablet TAKE 1 TABLET DAILY. - metroNIDAZOLE (METROGEL) 0.75 % Topical Gel Apply to affected area two times a day. - TURMERIC ORAL Take 15 mg by mouth once daily. - ubidecarenone Q-10 (CO Q-10) 10 mg cap Take 10 mg by mouth once daily. - iv contrast (will be provided with radiology test) CT Chest W -Inject, intravenously, once for 1 dose.No IV access, insert saline lock prior to the beginning of sedation, infusion, injection of imaging exam. Discontinue saline lock post exam. If Pt. has a central line or IVAD, may access for administration according to line specific nursing protocol. Once exam is complete flush line and de-access according to line specific nursing protocol in the CT contrast administration guidelines link. - iv contrast (will be provided with radiology test) CT ABD/PEL -Inject, intravenously, once for 1 dose.No IV access, insert saline lock prior to the beginning of sedation, infusion, injection of imaging exam. Discontinue saline lock post exam. If Pt. has a central line or IVAD, may access for administration according to line specific nursing protocol. Once exam is complete flush line and de-access according to line specific nursing protocol in the CT contrast administration guidelines link. - enteric contrast (will be provided with radiology test) For CT ABD/PEL W IVCON Routine order Administer, As Directed One Time Only, via Oral, Rectal, both Oral and Rectal, Enteric Tube, Stoma or Indwelling Catheter, Enteric Contrast as designated per enteric contrast guidelines - CYTOMEL 5 mcg tablet Take 5 mcg by mouth once daily. - iv contrast (will be provided with radiology test) CT ABD/PEL -Inject, intravenously, once for 1 dose.No IV access, insert saline lock prior to the beginning of sedation, infusion, injection of imaging exam. Discontinue saline lock post exam. If Pt. has a central line or IVAD, may access for administration according to line specific nursing protocol. Once exam is complete flush line and de-access according to line specific nursing protocol in the CT contrast administration guidelines link. - enteric contrast (will be provided with radiology test) For CT ABD/PEL W IVCON Routine order Administer, As Directed One Time Only, via Oral, Rectal, both Oral and Rectal, Enteric Tube, Stoma or Indwelling Catheter, Enteric Contrast as designated per enteric contrast guidelines - naproxen sodium (ALEVE) 220 mg tablet Take 220 mg by mouth two times a day with meals. - acetaminophen (TYLENOL EXTRA STRENGTH) 500 mg tablet Take 650 mg by mouth every 8 hours as needed. - MULTIVITAMIN ORAL Take 1 tablet by mouth once daily. - calcium carbonate (CALCIUM 500 ORAL) Take by mouth once daily. 9431-5289 daily Includes, Vit K1, 2, 7 - [id number]-5-FID-SOX-DHU-YIEL OIL ORAL Take 1 tablet by mouth once daily. - pregabalin (LYRICA) 75 mg capsule Take 75 mg by mouth two times a day. Three times daily - zoledronic acid (ZOMETA) 4 mg/5 mL injection Inject intravenously. - LACTOBACILLUS ACIDOPHILUS (PROBIOTIC ORAL) Take 1 tablet by mouth three times a week. Mon., Wed., Fri. - cholecalciferol (VITAMIN D3) 5,000 unit tab Take 1 capsule by mouth one time a week. Letter Text PROGRESS Observed: 11/15/2024 1:41 PM Status: COMPLETED Source: [facility] HNO ID: [id number] Author: DANAY ELIZABETH PT Service: ? Author Type: Physical Therapist Type: Progress Notes Filed: 11/16/2024 12:50 Note Text: Episode Visit Count: 1 Therapist That Will Accept/Oversee The Plan Of Care: Danay Elizabeth PT Start of Care Date: 11/15/24 Onset Date: 08/17/24 Plan of Care Certification Date: 11/15/24 Next Certification Due Date: 12/20/24 Patient Identified by Name and Date of : Yes REHABILITATION AND SPORTS THERAPY PHYSICAL THERAPY EVALUATION PLAN OF CARE: Assessment: Ashtyn Laurent presents with chief complaint of LB and L leg pain that interferes with sitting, walking (Walking uphill) . The patient presents with impairments in independence in exercise, overall function, strength, and symptom management. PROMIS? (Patient-Reported Outcomes Measurement Information System) scores were reviewed and identified as within normal limits. Prognosis for therapy is Good due to: current objective clinical presentation . Pt demonstrates a positive active SLR on the L and demonstrates weakness of the hip abductors and external rotators as today's most pertinent findings. The patient will benefit from skilled therapy services to meet the goals established for this plan of care as noted below. Classification Pain Mechanism Classification: Nociceptive Goals for Episode of Care: established 11/15/24 [place] in home exercise program. Perform walking uphill without pain. Increased strength of hip abd, ext, and ER's to 5/5 for improved SIJ stability and decreased Pt will be able to sit for a prolonged period of time without pain/symptoms in 12 weeks or less. Patient Goals: Reduce the pain Time Frame for Goals and Treatment : 01/10/25 Planned Interventions, Frequency, and Duration: Current Frequency: 1x/week Duration: 4 weeks Total Number of Visits Planned: 4 Planned Treatment Interventions: Therapeutic exercise (31492), Neuromuscular re-education (06011), Manual therapy (31199), Therapeutic activities (25819), Self-group home management (33876), Gait Training (55417), Patient/Family/Caregiver Education PLAN FOR NEXT VISIT: Focus on heavily loading the glute med/min, hip extensors, and hip ERs. Test hip ext strength. Patient demonstrates good understanding of plan of care and treatment. The above goals and plan of care were discussed and agreed upon by patient/family. SUBJECTIVE: LBP and Leg pain. MRI shows wear and tear at L3/4. History if T5-9 infusion. Injected L4/5 and S1 . Burning in the L heel and tingling in the back of the L thigh. If prolonged sitting can get tingling in the ischial tuberosity. Pain is present around the L SIJ. Did try dry needling at [facility]. This did not help past a few hours. May have weakness of the L leg when trying to put on slacks. No saddle paresthesia. Can sense a sensation in the front of the L thigh. Coughing and sneezing does not make things worse. Walking feels better. Walking on and incline hurts more than flat. Sleep is perfect. After 30-45 min of morning routine is when things bother her. Patient Goals: Reduce the pain Functional Limitations: sitting, walking (Walking uphill) Prior Level of Function: Independent without limitations Intake Information: Prescription present Previous Treatment: Injections Pain: Pain Pain Level: 3 Pain Location: Leg - Left, Hip - Left Description: Burning PROMIS Scales 11/08/2024 08/08/2023 02/07/2023 Higher is Better Phys Func - T Score 50 (within normal limits) 52 (within normal limits) 47 (within normal limits) Phys Func - Percentile 50 58 38 Self-Eff Symptom - T Score 47 (Average) Self-Eff Symptom - Percentile 38 08/08/2023 02/07/2023 09/28/2022 Lower is Better Pain Interference - T Score 56 (mild) 54 (within normal limits) 59 (mild) Pain Interference - Percentile 27 34 18 T-scores: mean of general population = 50. 5 points is clinically meaningfully difference Percentiles provide an indication of how the patient's score ranks in relation to the general population. Higher percentile rankings indicate better function/quality of life. 50th percentile is the average of the general population and indicates half of respondents had a worse score. OBJECTIVE MEASURES WITH LEVEL OF FUNCTION: Lumbar Spine AROM Lumbar Flexion: Normal Lumbar Extension: Normal, Peripheralizing (down sciatic nerve distribution to lower thigh) Lumbar R Side [place]: Normal Lumbar L Side [place]: Normal Lumbar R Side-Bend: Normal (pulling at the L SIJ) Lumbar L Side-Bend: Normal Lumbar R Rotation: Normal Lumbar L Rotation: Normal LE Flexibility Flexibility: Quadriceps Flexibility, Hip Flexor Flexibility, Hamstring Flexibility R Hamstring Flexibility: WNL L Hamstring Flexibility: WNL R Hip Flexor Flexibility: WNL L Hip Flexor Flexibility: WNL R Quadriceps Flexibility: Mildly tight L Quadriceps Flexibility: Mildly tight Spine Joint Mobility Spine Joint Mobility : Lumbar/Thoracic Joint Mobility - L1: WNL Joint Mobility - L2: WNL Joint Mobility - L3: WNL Joint Mobility - L4: WNL Joint Mobility - L5: WNL LE Strength R Hip ABduction: 4/5 L Hip ABduction: 4/5 Special Tests - Hip and Spine Hip and Spine Special Tests: Active SLR Active SLR: Left Positive Gait Gait Observation: WNL L SL stance increases tingling into the bottom of the L foot and stabilizing the pelvis by this PT improves this Education: Education Learning Preferences: Demonstration, Explanation, Performance, Printed Materials Barriers: None Learning/educational needs: Home exercise program, Plan of Care, Changes in Plan of Care Education Provided: Yes, see treatment interventions for education provided Education Provided To: Patient Education Mode/Type: Demonstration, Explanation/Discussion, Literature/Printed Materials, Performance Response to Education/Teach Back: States/Identifies, Return Demonstration TREATMENT: PT Treatment Interventions: Therapeutic Exercise Evaluation Therapeutic Exercise: 1: Discussed exam findings, purpose of the HEP and the HEP handout was provided to the pt. HEP discussed in detail with how to safely and properly perform each therapeutic exercise. 2: Resisted side-stepping lvl 5 band to fatigue x 1 set Skilled Intervention: Patient was educated in proper exercise technique and purpose for exercises. Skilled judgment was used in selection of appropriate interventions. Provided written instruction for home exercise program to facilitate proper performance and compliance. Billing * Evaluation Moderate Complexity: 1 Unit Therapeutic Exercise Treatment Minutes: 12 Skilled Treatment Time Minutes (timed and untimed codes): 81 Total Session Time (minutes): 81 Session Start Time : 1343 Session Stop Time : 1504 Danay Elizabeth, PT OSMOLALITY UR Collected: 09/07/2024 2:41 PM Status: F Source: [facility] Order Comment: Specimen Type : URINE SPECIMEN Ordering Facility: [facility] Address: [address] [place] [address] TYPE CODE TESTS RESULT OUT OF RANGE REFERENCE UNITS LAB 2695-5(LOINC) Osmolality Ur 551 50-1200 mOsm /kg Performed By: #### 2695-5 ## ## [facility] CLIA [id number] [address] [place] [address] [place] [address] [place] SODIUM ?TM UR-SCNC Collected: 2:41 PM Status: F Source: [facility] Order Comment: Specimen Type : URINE SPECIMEN Ordering Facility: [facility] Address: [address] [place] [address] TYPE CODE TESTS RESULT OUT OF RANGE REFERENCE UNITS LAB 84064-3([facility]) Sodium ?Tm Ur-sCnc 21 14-216 mmol/L Performed By: #### 83657-8 # ### [facility] CLIA [id number] [address] [place] [address] [place] [address] [place] CBC W AUTO DIFF BLD Collected: 09/07/2024 9:[address] atus: F Source: [facility] Order Comment: Specimen Type : BLOOD SPECIMEN Ordering Facility: [facility] Address: [address] [place] [address] TYPE CODE TESTS RESULT OUT OF RANGE REFERENCE UNITS LAB 6690-2([facility]) WBC # Bld Auto 5.13 3.70-11.00 k/uL LAB 789-8([facility]) RBC # Bld Auto 4.23 3.90-5.20 m/ uL LAB 718-7([facility]) Hgb Bld-mCnc 13.9 11.5-15.5 g/dL LAB 4544-3([facility]) Hct VFr Bld Auto 39.9 36.0-46.0 % LAB 787-2([facility]) MCV RBC Auto 94.3 80.0-100.0 fL LAB 785-6([facility]) MCH RBC Qn Auto 32.9 26.0-34.0 p g LAB 786-4([facility]) MCHC RBC Auto-mCnc 34.8 30.5-36.0 g/dL LAB 14236-2([facility]) RDW RBC-Rto 12.8 11.5-15.0 % LAB 777-3([facility]) Platelet # Bld Auto 266 150-400 k/uL LAB 86580-7([facility]) PMV Bld Auto 8.9 Low 9.0-12.7 fL LAB 770-8([facility]) Neutrophils/leuk NFr Bld Auto 57.3 % LAB 751-8([facility]) Neutrophils # Bld Auto 2.94 1.45-7.50 k/uL LAB 736-9([facility]) Lymphocytes/leuk NFr Bld Auto 23.2 % LAB 731-0(LOINC) Lymphocytes # Bld Auto 1.19 1.00-4.00 k/uL LAB 5905-5(LOINC) Monocytes/leuk NFr Bld Auto 14.0 % LAB 742-7(LOINC) Monocytes # Bld Auto 0.72 <0.87 k/uL LAB 713-8(LOINC) Eosinophil/leuk NFr Bld Auto 4.1 % LAB 711-2(LOINC) Eosinophil # Bld Auto 0.21 <0.46 k/uL LAB 706-2(INC) Basophils/leuk NFr Bld Auto 1.2 % LAB 704-7(INC) Basophils # Bld Auto 0.06 <0.11 k/uL LAB 38362-5(INC) Imm Granulocytes/harish k NFr Bld Auto 0.2 % LAB 61187-4([facility]) Imm Granulocytes # Bld Auto <0.03 <0.10 k/uL LAB 95516-8([facility]) nRBC/100 WBC Bld-Rto 0.0 /100 WBC LAB 771-6([facility]) nRBC # Bld Auto <0.01 <0.01 k/u L LAB 67857-2([facility]) Differential method Bld Auto Performed By: #### 08387-3 # ### [facility] CLIA [id number] [address] [place] [address] [place] COMP METAB 2000 PNL SERPL Collected: 9:23 AM Status: F Source: [facility] Order Comment: Specimen Type : BLOOD SPECIMEN Ordering Facility: [facility] Address: [address] [place] [address] TYPE CODE TESTS RESULT OUT OF RANGE REFERENCE UNITS LAB 2885-2([facility]) Prot SerPl-mCnc 7.2 6.3-8.0 g/dL LAB 1751-7(LOINC) Albumin SerPl-mCnc 4.8 3.9-4.9 g/dL LAB 01676-6(LOINC) Calcium SerPl-mCnc 9.6 8.5-10.2 mg/dL LAB 1975-2(INC) Bilirub SerPl-mCnc 0.7 0.2-1.3 mg/dL LAB 6768-6(LOINC) ALP SerPl-cCnc 48 34-123 U/L LAB 1920-8(LOINC) AST SerPl-cCnc 47 High 13-35 U/L LAB 1742-6(LOINC) ALT SerPl-cCnc 29 7-38 U/L LAB 2345-7(LOINC) Glucose SerPl-mCnc 90 74-99 mg/dL Result Comment: The [place] [employer] (ADA) provides guidance for cutoff values for fasting glucose and random glucose. The ADA defines fasting as no caloric intake for at least 8 hours. Fasting plasma glucose results between 100 to 125 mg/dL indicate increased risk for diabetes (prediabetes). Fasting plasma glucose results greater than or equal to 126 mg/dL meet the criteria for diagnosis of diabetes. In the absence of unequivocal hyperglycemia, results should be confirmed by repeat testing. In a patient with classic symptoms of hyperglycemia or hyperglycemic crisis, random plasma glucose results greater than or equal to 200 mg/dL meet the criteria for diagnosis of diabetes. Reference: Standards of Medical Care in Diabetes 2016, [place] [employer]. Diabetes Care. 2016.39(Suppl 1). LAB 3094-0(LOINC) BUN SerPl-mCnc 20 7-21 mg/ dL LAB 2160-0(LOINC) Creat SerPl-mCnc 0.84 0.58-0.96 mg/dL LAB 2951-2(LOINC) Sodium SerPl-sCnc 126 Low 136-144 mmol/L LAB 2823-3(LOINC) Potassium SerPl-sCnc 4.7 3.7-5.1 mmol/L LAB 2075-0(LOINC) Chloride SerPl-sCnc 89 Low 98-107 mmol/L LAB 2028-9(LOINC) CO2 SerPl-sCnc 28 22-30 mmo l/L LAB 17195-3(LOINC) Anion Gap SerPl-sCnc 9 8-15 mmol/L LAB 27446-7(LOINC) Creatinine + eGFR Pnl SerPlBld 77 >=60 mL/min/1 .73m??? Result Comment: Estimated Gl omerular Filtration Rate (eGFR) is calculated using the 2020 CKD-EPI creatinine equation. This equation utilizes serum creatinine, sex, and age as parameters. The creatinine assay has traceable calibration to isotope dilution-mass spectrometry. Refer to KDIGO guidelines for clinical interpretation. In patients with unstable renal function, e.g. those with acute kidney injury, the eGFR may not accurately reflect actual GFR. Performed By: #### 2777-1, 2 4323-8, 95535-5 #### [facility] CLIA [id number] [address] [place] [address] [place] PHOSPHATE SERPL-MCNC Collected: 09/07/2024 9:23 AM S tatus: F Source: [facility] Order Comment: Specimen Type : BLOOD SPECIMEN Ordering Facility: [facility] Address: [address] [place] [address] TYPE CODE TESTS RESULT OUT OF RANGE REFERENCE UNITS LAB 2777-1(LOINC) Phosphate SerPl-mCnc 4.2 2.7-4.8 mg/dL Performed By: #### 2777-1, 2 4323-8, 86910-0 #### [facility] CLIA [id number] [address] [place] [address] STATES OF [facility] MAGNESIUM SERPL-MCNC Collected: 09/07/2024 9:23 AM S tatus: F Source: [facility] Order Comment: Specimen Type : BLOOD SPECIMEN Ordering Facility: [facility] Address: [address] [place] [address] TYPE CODE TESTS RESULT OUT OF RANGE REFERENCE UNITS LAB 04954-8(LOINC) Magnesium SerPl-mCnc 2.2 1.7-2.3 mg/dL Performed By: #### 2777-1, 2 4323-8, 57529-0 #### [facility] CLIA [id number] [address] [place] [address] OF [place] CNPN Observed: 09/07/2024 12:00 AM Status: COMPLETED Source: [facility] Telephone (HEMFotoup) ASHTYN LAURENT ([id number]) 1955 F Date Time Provider Department 09/07/24 ESAU JIMENEZ BRAYAN During your visit today, we recorded the following information about you: Esau Jimenez DO 09/07/2024 12:38 PM Signed Her lab work is all okay except sodium is lower than it was in the past. Can someone update her medication list? DO Bj Gutierrez Pamela S, LPN 09/07/2024 12:56 PM Signed Spoke with pt. ,Medication list updated added synthroid, and Celebrex, also no longer taking any Aleve . Pt. Stated her sodium was low 2 weeks ago when she seen Dr. Dsouza , but is was not as low as it is now. DANTE Scott Paul A, DO 09/07/2024 1:08 PM Signed Thank you. Then I would like to work this up a little further. Please ask her to come in for urine specimen. DO Bj Lea Pamela S, LPN 09/07/2024 1:30 PM Signed Left message on identified voicemail to come in for urine specimens , orders are in system. DANTE Scott Paul A, DO 09/09/2024 4:33 PM Signed The urine tests suggest the low sodium may in part be due to thyroid function. I recommend she get in touch with Dr. Dsouza about checking her TSH and levothyroxine levels. Please fax recent lab results and the urine tests to Dr. Dsouza along with this phone note. DO Jo Lea Kara, LPN 09/10/2024 8:45 AM Signed Faxed labs to Dr Dsouza and [facility] Presta message sent to pt. Salome Osorio LPN Allergies As of Date: 09/07/2024 Noted Allergy Reaction NICKEL 09/25/2008 SEPTRA (SULFAMETHOXAZOLE-TRIMETHO*11/03/2005 SULFA (SULFONAMIDE ANTIBIOTICS) 11/03/2005 THIMEROSAL 11/03/2005 TORADOL (KETOROLAC) 03/12/2022 5 - Intolerance Comments: Sweating, anxiety, warmth sensation Date Reviewed: 09/07/2024 Reviewed by: Noah Jenkins RN - Fully Assessed Reason for Visit: Results [95] Primary Visit Diagnosis:Hyponatremia [E87.1] Order(s):SODIUM RANDOM URINE [SQUNAR] Order #: [id number] FUTURE OSMOLALITY URINE [SQUOSM] Order #: [id number] FUTURE Prescriptions as of 09/10/2024 - levothyroxine (SYNTHROID) 88 mcg tablet Take 88 mcg by mouth daily before breakfast. Take 1 tablet Tuesday thru Tuesday and 1/2 tablet on Tuesday - celecoxib (CELEBREX) 100 mg capsule Take 100 mg by mouth two times a day. Only for 2 weeks - TAGRISSO 80 mg tablet TAKE 1 TABLET DAILY. - metroNIDAZOLE (METROGEL) 0.75 % Topical Gel Apply to affected area two times a day. - TURMERIC ORAL Take 15 mg by mouth once daily. - ubidecarenone Q-10 (CO Q-10) 10 mg cap Take 10 mg by mouth once daily. - iv contrast (will be provided with radiology test) CT Chest W -Inject, intravenously, once for 1 dose.No IV access, insert saline lock prior to the beginning of sedation, infusion, injection of imaging exam. Discontinue saline lock post exam. If Pt. has a central line or IVAD, may access for administration according to line specific nursing protocol. Once exam is complete flush line and de-access according to line specific nursing protocol in the CT contrast administration guidelines link. - iv contrast (will be provided with radiology test) CT ABD/PEL -Inject, intravenously, once for 1 dose.No IV access, insert saline lock prior to the beginning of sedation, infusion, injection of imaging exam. Discontinue saline lock post exam. If Pt. has a central line or IVAD, may access for administration according to line specific nursing protocol. Once exam is complete flush line and de-access according to line specific nursing protocol in the CT contrast administration guidelines link. - enteric contrast (will be provided with radiology test) For CT ABD/PEL W IVCON Routine order Administer, As Directed One Time Only, via Oral, Rectal, both Oral and Rectal, Enteric Tube, Stoma or Indwelling Catheter, Enteric Contrast as designated per enteric contrast guidelines - CYTOMEL 5 mcg tablet Take 5 mcg by mouth once daily. - iv contrast (will be provided with radiology test) CT ABD/PEL -Inject, intravenously, once for 1 dose.No IV access, insert saline lock prior to the beginning of sedation, infusion, injection of imaging exam. Discontinue saline lock post exam. If Pt. has a central line or IVAD, may access for administration according to line specific nursing protocol. Once exam is complete flush line and de-access according to line specific nursing protocol in the CT contrast administration guidelines link. - enteric contrast (will be provided with radiology test) For CT ABD/PEL W IVCON Routine order Administer, As Directed One Time Only, via Oral, Rectal, both Oral and Rectal, Enteric Tube, Stoma or Indwelling Catheter, Enteric Contrast as designated per enteric contrast guidelines - naproxen sodium (ALEVE) 220 mg tablet Take 220 mg by mouth two times a day with meals. - acetaminophen (TYLENOL EXTRA STRENGTH) 500 mg tablet Take 650 mg by mouth every 8 hours as needed. - MULTIVITAMIN ORAL Take 1 tablet by mouth once daily. - calcium carbonate (CALCIUM 500 ORAL) Take by mouth once daily. 4879-4837 daily Includes, Vit K1, 2, 7 - [id number] OIL ORAL Take 1 tablet by mouth once daily. - pregabalin (LYRICA) 75 mg capsule Take 75 mg by mouth two times a day. Three times daily - zoledronic acid (ZOMETA) 4 mg/5 mL injection Inject intravenously. - LACTOBACILLUS ACIDOPHILUS (PROBIOTIC ORAL) Take 1 tablet by mouth three times a week. Mon., Wed., Fri. - cholecalciferol (VITAMIN D3) 5,000 unit tab Take 1 capsule by mouth one time a week. 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 Author Type: Physician Type: Progress Notes Filed: 08/06/2024 11:40 Note Text: [facility] VISIT This visit is a Virtual MyChart video visit encounter which required patient-provider interaction for the medical decision making as documented below. Persons Present: patient and patient's spouse Ashtyn Laurent is presents for follow up of her EGFR mutated NSCLC. She continues osimertinib therapy at 80 mg daily, started in April 2022. Overall she is doing very well. Notes some nail and skin changes and feels that she is managing these side effects well. She also underwent consolidative SBRT on 04/01/23 to her primary RML tumor. She continues primary medical oncology follow up with Dr. Jimenez. She is doing well overall. No SOB or cough. Main issue is that she continues to note some persistent pain in the low back and L gluteal area. MRI of T-L spine in December 2023 showed no evidence for metastasis. She continues q3 month zoledronic acid infusions through Dr. Jimenez. HISTORY REVIEWED (electronic chart updated): - medical history - medications - allergies Data Reviewed: Most recent labs and imaging REVIEW OF SYSTEMS: As noted in HPI VIDEO PHYSICAL EXAMINATION: (if done, performed via video enabled technology) GENERAL: alert and appropriate, in no distress EYES: no injection and sclerae anicteric RADIOLOGY REVIEW: [facility] CT CAP06/07/24 IMPRESSION: Consolidative opacity in the right middle lobe unchanged compared to prior study. No CT evidence of thoracic lymphadenopathy. Other findings as described above. Supervisor Plating And Point Assembly: MIN Transcribe Date/Time: Jun 12 2024 9:18A Dictated by : CLIFTON ALBERT MD IMPRESSION: 1. Stable small sclerotic osseous metastases within the pelvis. 2. No CT evidence of new or enlarging mass or lymphadenopathy in the abdomen or pelvis. 3. New trace nonspecific pelvic free fluid. Supervisor Plating And Point Assembly: MIN Transcribe Date/Time: Jun 12 2024 11:44A Dictated by : LOIS LEO MD Images personally reviewed and compared to priors ASSESSMENT: Oligometastatic EGFR mut (exon 19 del) NSCLC; doing very well on osimertinib for nearly 2.5 years and s/p SBRT to RML primary [address] imaging c/w maintenance of complete response at known sites and there is no evidence for progression elsewhere. PLAN: Recommend that she continue osimertinib at current dose of 80 mg and zoledronic acid q3 months; she will continue her primary follow up with Dr. Jimenez. She has follow up in September for labwork and zoledronic acid, with plans to repeat imaging in December through Dr. Jimenez. Mrs. Laurent and her voiced understanding of our discussion and this plan at the end of the visit and their questions for me were fully addressed. Faina Cortes MD Any elements of my HPI and Assessment/Plan copied from my prior note have been updated where appropriate and all reflect current medical decision making from today, 08/06/2024. Physical examination listed above was completed in entirety today, 08/06/2024, and is unchanged from the prior visit except where noted. I have confirmed and edited as necessary, the PFSH and ROS obtained by others. I spent a total of 35 minutes on the date of the service which included preparing to see the patient, [id number] patient care, completing clinical documentation, obtaining and/or reviewing separately obtained history, counseling and educating the patient/family/caregiver, communicating with other HCPs (not separately reported), independently interpreting results (not separately reported), and communicating results to the patient/family/caregiver. I have communicated my name and active licensure. The patient?s identity and physical location were verified at the time of this visit. Ashtyn Laurent or their legal human resources representative has been informed of the risks and benefits of -- and alternatives to -- treatment through a remote evaluation and consents to proceed with the evaluation remotely. ASH Observed: 06/19/2024 12:00 AM Status: COMPLETED Source: [facility] Telephone (HEMAWS) ASHTYN LAURENT ([id number]) 1955 F Date Time Provider Department 06/19/24 ESAU JIMENEZKATHERYN During your visit today, we recorded the following information about you: Esau Jimenez DO 06/19/2024 1:29 PM Signed Can let her know the ultrasound showed some retention of urine after voiding bladder. Please fax a copy of the report to Dr. Dsouza. She and patient can decide if needs further work up at this time. DO Janeth Lea Melanie, LPN 06/19/2024 4:32 PM Signed Message left for patient to contact office. Results faxed to Dr. Dsouza's office. DANTE Villalta Melanie, LPN 06/20/2024 10:20 AM Signed Second message left on patient's VM to contact office. DANTE Villalta Melissa 06/20/2024 2:40 PM Signed Message relayed to patient Allergies As of Date: 06/19/2024 Noted Allergy Reaction NICKEL 09/25/2008 SEPTRA (SULFAMETHOXAZOLE-TRIMETHO*11/03/2005 SULFA (SULFONAMIDE ANTIBIOTICS) 11/03/2005 THIMEROSAL 11/03/2005 TORADOL (KETOROLAC) 03/12/2022 5 - Intolerance Comments: Sweating, anxiety, warmth sensation Date Reviewed: 06/17/2024 Reviewed by: Esau Jimenez DO - Fully Assessed Reason for Visit: Results [95] Prescriptions as of 06/20/2024 - metroNIDAZOLE (METROGEL) 0.75 % Topical Gel Apply to affected area two times a day. - TURMERIC ORAL Take 15 mg by mouth once daily. - ubidecarenone Q-10 (CO Q-10) 10 mg cap Take 10 mg by mouth once daily. - iv contrast (will be provided with radiology test) CT Chest W -Inject, intravenously, once for 1 dose.No IV access, insert saline lock prior to the beginning of sedation, infusion, injection of imaging exam. Discontinue saline lock post exam. If Pt. has a central line or IVAD, may access for administration according to line specific nursing protocol. Once exam is complete flush line and de-access according to line specific nursing protocol in the CT contrast administration guidelines link. - iv contrast (will be provided with radiology test) CT ABD/PEL -Inject, intravenously, once for 1 dose.No IV access, insert saline lock prior to the beginning of sedation, infusion, injection of imaging exam. Discontinue saline lock post exam. If Pt. has a central line or IVAD, may access for administration according to line specific nursing protocol. Once exam is complete flush line and de-access according to line specific nursing protocol in the CT contrast administration guidelines link. - enteric contrast (will be provided with radiology test) For CT ABD/PEL W IVCON Routine order Administer, As Directed One Time Only, via Oral, Rectal, both Oral and Rectal, Enteric Tube, Stoma or Indwelling Catheter, Enteric Contrast as designated per enteric contrast guidelines - CYTOMEL 5 mcg tablet Take 5 mcg by mouth once daily. - iv contrast (will be provided with radiology test) CT ABD/PEL -Inject, intravenously, once for 1 dose.No IV access, insert saline lock prior to the beginning of sedation, infusion, injection of imaging exam. Discontinue saline lock post exam. If Pt. has a central line or IVAD, may access for administration according to line specific nursing protocol. Once exam is complete flush line and de-access according to line specific nursing protocol in the CT contrast administration guidelines link. - enteric contrast (will be provided with radiology test) For CT ABD/PEL W IVCON Routine order Administer, As Directed One Time Only, via Oral, Rectal, both Oral and Rectal, Enteric Tube, Stoma or Indwelling Catheter, Enteric Contrast as designated per enteric contrast guidelines - TAGRISSO 80 mg tablet TAKE 1 TABLET DAILY. - naproxen sodium (ALEVE) 220 mg tablet Take 220 mg by mouth two times a day with meals. - acetaminophen (TYLENOL EXTRA STRENGTH) 500 mg tablet Take 650 mg by mouth every 8 hours as needed. - MULTIVITAMIN ORAL Take 1 tablet by mouth once daily. - calcium carbonate (CALCIUM 500 ORAL) Take by mouth once daily. 3509-7376 daily Includes, Vit K1, 2, 7 - [id number]-UHEA OIL ORAL Take 1 tablet by mouth once daily. - pregabalin (LYRICA) 75 mg capsule Take 75 mg by mouth two times a day. Three times daily - zoledronic acid (ZOMETA) 4 mg/5 mL injection Inject intravenously. - LACTOBACILLUS ACIDOPHILUS (PROBIOTIC ORAL) Take 1 tablet by mouth three times a week. Mon., Wed., Fri. - cholecalciferol (VITAMIN D3) 5,000 unit tab Take 1 capsule by mouth one time a week. 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 Lung carcinoma Technique: US PELVIS BLADDER Comparison: CT scans of 06/07/2024 RESULT: Pre and postvoid urinary bladder volume of 208 cc and 71 cc respectively were recorded. No focal bladder wall abnormality is seen. IMPRESSION: SMALL/MODERATE POSTVOID RESIDUAL URINARY BLADDER VOLUME Supervisor [employer]: MIN Transcribe Date/Time: Jun 19 2024 9:52A Dictated by : DON LOMAX MD This examination was interpreted and the report reviewed and electronically signed by: DON LOMAX MD on Jun 19 2024 9:54AM EST [id number] Observed: 06/14/2024 10:30 AM Status: COMPLETED Source: [facility] Visit (SP) Office (HEMAWS) ASHTYN LAURENT ([id number]) 1955 F Date Time Provider Department 06/14/24 10:30 AM TREATMENT RM [facility] During your visit today, we recorded the following information about you: Referring Provider: ESAU JIMENEZ [[id number]] Allergies As of Date: 06/14/2024 Noted Allergy Reaction NICKEL 09/25/2008 SEPTRA (SULFAMETHOXAZOLE-TRIMETHO*11/03/2005 SULFA (SULFONAMIDE ANTIBIOTICS) 11/03/2005 THIMEROSAL 11/03/2005 TORADOL (KETOROLAC) 03/12/2022 5 - Intolerance Comments: Sweating, anxiety, warmth sensation Date Reviewed: 06/14/2024 Reviewed by: Heena Leong MA - Fully Assessed Reason for Visit: Zometa [[id number]] Primary Visit Diagnosis:Malignant neoplasm of lung, unspecified laterality, unspecified part of lung (HCC) [C34.90] Other Visit Diagnoses: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 - TURMERIC ORAL Take 15 mg by mouth once daily. - ubidecarenone Q-10 (CO Q-10) 10 mg cap Take 10 mg by mouth once daily. - iv contrast (will be provided with radiology test) CT Chest W -Inject, intravenously, once for 1 dose.No IV access, insert saline lock prior to the beginning of sedation, infusion, injection of imaging exam. Discontinue saline lock post exam. If Pt. has a central line or IVAD, may access for administration according to line specific nursing protocol. Once exam is complete flush line and de-access according to line specific nursing protocol in the CT contrast administration guidelines link. - iv contrast (will be provided with radiology test) CT ABD/PEL -Inject, intravenously, once for 1 dose.No IV access, insert saline lock prior to the beginning of sedation, infusion, injection of imaging exam. Discontinue saline lock post exam. If Pt. has a central line or IVAD, may access for administration according to line specific nursing protocol. Once exam is complete flush line and de-access according to line specific nursing protocol in the CT contrast administration guidelines link. - enteric contrast (will be provided with radiology test) For CT ABD/PEL W IVCON Routine order Administer, As Directed One Time Only, via Oral, Rectal, both Oral and Rectal, Enteric Tube, Stoma or Indwelling Catheter, Enteric Contrast as designated per enteric contrast guidelines - CYTOMEL 5 mcg tablet Take 5 mcg by mouth once daily. - iv contrast (will be provided with radiology test) CT ABD/PEL -Inject, intravenously, once for 1 dose.No IV access, insert saline lock prior to the beginning of sedation, infusion, injection of imaging exam. Discontinue saline lock post exam. If Pt. has a central line or IVAD, may access for administration according to line specific nursing protocol. Once exam is complete flush line and de-access according to line specific nursing protocol in the CT contrast administration guidelines link. - enteric contrast (will be provided with radiology test) For CT ABD/PEL W IVCON Routine order Administer, As Directed One Time Only, via Oral, Rectal, both Oral and Rectal, Enteric Tube, Stoma or Indwelling Catheter, Enteric Contrast as designated per enteric contrast guidelines - TAGRISSO 80 mg tablet TAKE 1 TABLET DAILY. - naproxen sodium (ALEVE) 220 mg tablet Take 220 mg by mouth two times a day with meals. - acetaminophen (TYLENOL EXTRA STRENGTH) 500 mg tablet Take 650 mg by mouth every 8 hours as needed. - MULTIVITAMIN ORAL Take 1 tablet by mouth once daily. - calcium carbonate (CALCIUM 500 ORAL) Take by mouth once daily. 6032-8231 daily Includes, Vit K1, 2, 7 - [id number]-[id number] OIL ORAL Take 1 tablet by mouth once daily. - pregabalin (LYRICA) 75 mg capsule Take 75 mg by mouth two times a day. Three times daily - zoledronic acid (ZOMETA) 4 mg/5 mL injection Inject intravenously. - LACTOBACILLUS ACIDOPHILUS (PROBIOTIC ORAL) Take 1 tablet by mouth three times a week. Mon., Wed., Fri. - cholecalciferol (VITAMIN D3) 5,000 unit tab Take 1 capsule by mouth one time a week. Facility-Administered Medications as of 06/14/2024 - PHARMACY COMMUNICATION PATIENT ARRIVED Problem List As Of Date 06/14/2024 Noted Resolved Postsurgical Hypothyroidism [E89.0] 12/27/2008 Lung mass [R91.8] 03/10/2022 Compression fracture of T7 vertebra (HCC) [S22.*03/11/2022 Acute bilateral thoracic back pain [M54.6] 03/11/2022 Hyponatremia [E87.1] 03/12/2022 Lung cancer (HCC) [C34.90] 04/09/2022 Metastasis to spinal column (HCC) [C79.51] 04/09/2022 NSCLC with EGFR mutation (HCC) [C34.90] 04/09/2022 Pre-op evaluation [Z01.818] 08/05/2022 Anemia [D64.9] 08/05/2022 Fluid overload [E87.70] 08/05/2022 GERD (gastroesophageal reflux disease) [K21.9] 08/05/2022 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 Author Type: Physician Type: Progress Notes Filed: 06/17/2024 09:15 Note Text: Oncologic problem(s): 1) EGFR mutation positive metastatic non-small cell lung cancer. HPI: The patient is a 68 yo female with a PMH significant for hypothyroidism (total thyroidectomy--multinodular goiter) and smoking (quit 30 years ago; prior 1/2 ppd x10 years) She developed worsening back pain summer 2021. Pain was in the lower to mid thoracic area. She noticed it more when she was doing yard work. Got to the point where she was can by squad to the emergency room at [facility] on 03/09/2022. A CT of the chest abdomen pelvis was obtained. It demonstrated a 3.6 mm right upper lobe nodule. There was a 4.2 x 3.8 cm mass in the right middle lobe concerning for neoplasm. Additionally there was a pathologic fracture of T12 with less than 50% compression. There was possible mass extending into the spinal canal which might of been causing spinal stenosis. Trace fluid was noted in the pelvis. An MRI of the thoracic spine done the next morning demonstrated a suspect acute mild pathologic compression fracture of the T7 vertebral body with possible 5 mm retropulsion of the spinal canal producing moderate spinal stenosis with abutment of the central spinal cord. Patient was transferred to [facility]. CT-guided biopsy was performed of the spine lesion. Pathology: Bone, T7, core biopsy: - Metastatic adenocarcinoma, compatible with metastasis from lung primary (see comment). Pain was sharp and localized to mid to lower thoracic area but radiates around under costal margins b/l. ER morphine helps. Using bowel regimen. Cannot lie back flat without exacerbating the pain. Previous therapy: 1) Completed palliative radiation to T7 on 04/26/2022. 2) T6 and T7 laminectomy, bilateral T7 pediculectomy and T7 vertebrectomy, T5, T6, T8, T9 bilateral pedicle screws insertion with titanium expandable cage placement at T7 level T5-9 posterolateral fusion with allograft on 08/11/2022. 3) Completed SBRT 04/01/2023 to primary right middle lobe tumor. Pathology: Bone, T7, resection: -Changes consistent with fracture callus. - Negative for malignancy. (See comment) Current therapy: 1) Osimertinib. 04/2022. Presents for ongoing oncologic management. Interim history: Has appointment with CPM coming up. No significant side effects from osimertinib. No respiratory symptoms. Based on recent CT results: -BM daily. -Occasional suprapubic fullness. -Occasionally has to physically push with hand to help empty bladder. -No UTI symptoms. PMH, medications and allergies personally reviewed by me today. Any changes documented in appropriate section. ROS: Constitutional: Denies episodes of fever and night sweats. Neuro: Denies BOSTON, vertigo, dizziness and imbalance. HEENT: No recent change in voice, vision or hearing. Resp: See above. CVS: Denies exertional chest pain, PND, orthopnea and LE edema. GI: Denies dysphagia and odynophagia. Denies reflux, n/v, change in bowel habits and abdominal pain. : Denies dysuria or gross hematuria. Endo: Denies hot flashes. Denies polyuria and polydipsia. Denies heat and cold intolerance. Musculoskeletal: See above. Derm: No recent rash. Has some slight discoloration in both antecubital fossa. Heme: Denies unusual bleeding and unexplained bruising. Psych: Normal mood. PHYSICAL EXAM: Vitals: Blood pressure 157/91, pulse (!) 59, temperature 36.2 ?C (97.2 ?F), temperature source Temporal, weight 47.6 kg (105 lb), last menstrual period 04/05/2014, SpO2 100%. Well-appearing and in no acute distress. EYES: Sclerae are anicteric bilaterally. LYMPHATIC: There is no palpable cervical, supraclavicular or axillary adenopathy. RESPIRATORY: Inspiratory breath sounds are of normal intensity in all mcbride. No rales, wheezes or rhonchi. CARDIOVASCULAR: Rhythm is regular. ABDOMEN: The abdomen is nondistended. No organomegaly. Extremities: No swelling or edema. SKIN: No rash currently. LABS: CBC with diff: WBC 3.19 06/07/2024 RBC 4.18 06/07/2024 Hemoglobin 13.8 06/07/2024 Hematocrit 39.6 06/07/2024 MCV 94.7 06/07/2024 MCH 33.0 06/07/2024 MCHC 34.8 06/07/2024 RDW-CV 13.4 06/07/2024 Platelet Count 239 06/07/2024 MPV 9.4 06/07/2024 Neut% 55.0 06/07/2024 Lymph% 23.8 06/07/2024 [place]% 15.0 06/07/2024 Eosin% 5.0 06/07/2024 Baso% 0.9 06/07/2024 Abs Neut (ANC) 1.75 06/07/2024 Abs [place] 0.48 06/07/2024 Abs Eosin 0.16 06/07/2024 Abs Baso 0.03 06/07/2024 Glucose (mg/dL) Date Value 06/07/2024 95 01/13/2009 73 Potassium (mmol/L) Date Value 06/07/2024 4.7 01/13/2009 4.1 Sodium (mmol/L) Date Value 06/07/2024 135 01/13/2009 140 Chloride (mmol/L) Date Value 06/07/2024 99 01/13/2009 101 CO2 (mmol/L) Date Value 06/07/2024 26 01/13/2009 25 Creatinine (mg/dL) Date Value 06/07/2024 0.79 01/13/2009 0.86 BUN (mg/dL) Date Value 06/07/2024 20 01/13/2009 20 Anion Gap (mmol/L) Date Value 06/07/2024 10 01/13/2009 14 Calcium (mg/dL) Date Value 01/30/2009 8.9 Calcium, Total (mg/dL) Date Value 06/07/2024 9.3 Protein, Total (g/dL) Date Value 06/07/2024 7.1 Albumin (g/dL) Date Value 06/07/2024 4.9 Bilirubin, Total (mg/dL) Date Value 06/07/2024 0.4 Alkaline Phosphatase (U/L) Date Value 06/07/2024 50 AST (U/L) Date Value 06/07/2024 54 ALT (U/L) Date Value 06/07/2024 32 NGS/biomarkers/school bus driver/teacher assistant mutation analyses: -BRAF - No variant detected. -EGFR - A sequence change: [id number], p.([id number]) in exon 19 was detected at approximately 34% allelic proportion (depth of coverage at change 6064). -HER2 (ERBB2) - No variant detected. -KRAS - No variant detected. -MET - No variant detected. -PDL-1 95% tumor cells positive. -ROS-negative. -RET-negative. -ALK translocation negative. ASSESSMENT/PLAN: (C33, C34.80) Cancer of trachea, bronchus, and lung (HCC) (primary encounter diagnosis) (C79.51) Metastasis to spinal column (HCC) (C34.90) NSCLC with EGFR mutation (HCC) Assessment: -67 yo female who was in very good general health diagnosed with metastatic EGFR mutation (exon 19) NSCLC of the RML with an isolated metastasis to T7. -KPS is 80-90%. -She continues to tolerate osimertinib well. -Back pain stable. Has appointment with CPM. -Status post SBRT to primary lung tumor. -Reviewed CT images with her. Etiology of trace ascites in pelvis not clear and not entirely visible to me. Bladder seems large. Lung findings stable post RT. Plan: -Pre and post void US. -Otherwise CBC/CMP/PHOS/MAG in 3 months. -CBC/CMP/PHOS/MAG/CT C/A/P then OV in 6 months. -q 3 month Zometa. -Follow up with CPM and PCP. Portions of this documentation were copied and pasted from previous office visit notes in order to provide a cohesive continuity of the history. The note has been reviewed and edited and updated as necessary. I spent a total of 30 minutes on the date of the service which included preparing to see the patient, [id number] patient care, completing clinical documentation, obtaining and/or reviewing separately obtained history, performing a medically appropriate examination, counseling and educating the patient/family/caregiver, ordering medications, tests, or procedures, independently interpreting results (not separately reported), and communicating results to the patient/family/caregiver. Esau Jimenez DO CNOVSP Observed: 06/14/2024 9:50 AM Status: COMPLETED Source: [facility] Visit (SP) Office (HEMKATHERY[place]) MEHRANASHTYN ([id number]) 1955 F Date Time Provider Department 06/14/24 9:50 AM ESAU JIMENEZ During your visit today, we recorded the following information about you: Temperature Pulse Blood pressure Weight 97.2 degrees 59/minute 157/91 47.6 kg Esau Jimenez DO 06/17/2024 9:15 AM Signed Oncologic problem(s): 1) EGFR mutation positive metastatic non-small cell lung cancer. HPI: The patient is a 68 yo female with a PMH significant for hypothyroidism (total thyroidectomy--multinodular goiter) and smoking (quit 30 years ago; prior 1/2 ppd x10 years) She developed worsening back pain summer 2021. Pain was in the lower to mid thoracic area. She noticed it more when she was doing yard work. Got to the point where she was can by squad to the emergency room at [facility] on 03/09/2022. A CT of the chest abdomen pelvis was obtained. It demonstrated a 3.6 mm right upper lobe nodule. There was a 4.2 x 3.8 cm mass in the right middle lobe concerning for neoplasm. Additionally there was a pathologic fracture of T12 with less than 50% compression. There was possible mass extending into the spinal canal which might of been causing spinal stenosis. Trace fluid was noted in the pelvis. An MRI of the thoracic spine done the next morning demonstrated a suspect acute mild pathologic compression fracture of the T7 vertebral body with possible 5 mm retropulsion of the spinal canal producing moderate spinal stenosis with abutment of the central spinal cord. Patient was transferred to [facility]. CT-guided biopsy was performed of the spine lesion. Pathology: Bone, T7, core biopsy: - Metastatic adenocarcinoma, compatible with metastasis from lung primary (see comment). Pain was sharp and localized to mid to lower thoracic area but radiates around under costal margins b/l. ER morphine helps. Using bowel regimen. Cannot lie back flat without exacerbating the pain. Previous therapy: 1) Completed palliative radiation to T7 on 04/26/2022. 2) T6 and T7 laminectomy, bilateral T7 pediculectomy and T7 vertebrectomy, T5, T6, T8, T9 bilateral pedicle screws insertion with titanium expandable cage placement at T7 level T5-9 posterolateral fusion with allograft on 08/11/2022. 3) Completed SBRT 04/01/2023 to primary right middle lobe tumor. Pathology: Bone, T7, resection: -Changes consistent with fracture callus. - Negative for malignancy. (See comment) Current therapy: 1) Osimertinib. 04/2022. Presents for ongoing oncologic management. Interim history: Has appointment with CPM coming up. No significant side effects from osimertinib. No respiratory symptoms. Based on recent CT results: -BM daily. -Occasional suprapubic fullness. -Occasionally has to physically push with hand to help empty bladder. -No UTI symptoms. PMH, medications and allergies personally reviewed by me today. Any changes documented in appropriate section. ROS: Constitutional: Denies episodes of fever and night sweats. Neuro: Denies [place], vertigo, dizziness and imbalance. HEENT: No recent change in voice, vision or hearing. Resp: See above. CVS: Denies exertional chest pain, PND, orthopnea and LE edema. GI: Denies dysphagia and odynophagia. Denies reflux, n/v, change in bowel habits and abdominal pain. : Denies dysuria or gross hematuria. Endo: Denies hot flashes. Denies polyuria and polydipsia. Denies heat and cold intolerance. Musculoskeletal: See above. Derm: No recent rash. Has some slight discoloration in both antecubital fossa. Heme: Denies unusual bleeding and unexplained bruising. Psych: Normal mood. PHYSICAL EXAM: Vitals: Blood pressure 157/91, pulse (!) 59, temperature 36.2 ?C (97.2 ?F), temperature source Temporal, weight 47.6 kg (105 lb), last menstrual period 04/05/2014, SpO2 100%. Well-appearing and in no acute distress. EYES: Sclerae are anicteric bilaterally. LYMPHATIC: There is no palpable cervical, supraclavicular or axillary adenopathy. RESPIRATORY: Inspiratory breath sounds are of normal intensity in all mcbride. No rales, wheezes or rhonchi. CARDIOVASCULAR: Rhythm is regular. ABDOMEN: The abdomen is nondistended. No organomegaly. Extremities: No swelling or edema. SKIN: No rash currently. LABS: CBC with diff: WBC 3.19 06/07/2024 RBC 4.18 06/07/2024 Hemoglobin 13.8 06/07/2024 Hematocrit 39.6 06/07/2024 MCV 94.7 06/07/2024 MCH 33.0 06/07/2024 MCHC 34.8 06/07/2024 RDW-CV 13.4 06/07/2024 Platelet Count 239 06/07/2024 MPV 9.4 06/07/2024 Neut% 55.0 06/07/2024 Lymph% 23.8 06/07/2024 [place]% 15.0 06/07/2024 Eosin% 5.0 06/07/2024 Baso% 0.9 06/07/2024 Abs Neut (ANC) 1.75 06/07/2024 Abs [place] 0.48 06/07/2024 Abs Eosin 0.16 06/07/2024 Abs Baso 0.03 06/07/2024 Glucose (mg/dL) Date Value 06/07/2024 95 01/13/2009 73 Potassium (mmol/L) Date Value 06/07/2024 4.7 01/13/2009 4.1 Sodium (mmol/L) Date Value 06/07/2024 135 01/13/2009 140 Chloride (mmol/L) Date Value 06/07/2024 99 01/13/2009 101 CO2 (mmol/L) Date Value 06/07/2024 26 01/13/2009 25 Creatinine (mg/dL) Date Value 06/07/2024 0.79 01/13/2009 0.86 BUN (mg/dL) Date Value 06/07/2024 20 01/13/2009 20 Anion Gap (mmol/L) Date Value 06/07/2024 10 01/13/2009 14 Calcium (mg/dL) Date Value 01/30/2009 8.9 Calcium, Total (mg/dL) Date Value 06/07/2024 9.3 Protein, Total (g/dL) Date Value 06/07/2024 7.1 Albumin (g/dL) Date Value 06/07/2024 4.9 Bilirubin, Total (mg/dL) Date Value 06/07/2024 0.4 Alkaline Phosphatase (U/L) Date Value 06/07/2024 50 AST (U/L) Date Value 06/07/2024 54 ALT (U/L) Date Value 06/07/2024 32 NGS/biomarkers/school bus driver/teacher assistant mutation analyses: -BRAF - No variant detected. -EGFR - A sequence change: [id number]_[id number], p.([id number]) in exon 19 was detected at approximately 34% allelic proportion (depth of coverage at change 6064). -HER2 (ERBB2) - No variant detected. -KRAS - No variant detected. -MET - No variant detected. -PDL-1 95% tumor cells positive. -ROS-negative. -RET-negative. -ALK translocation negative. ASSESSMENT/PLAN: (C33, C34.80) Cancer of trachea, bronchus, and lung (HCC) (primary encounter diagnosis) (C79.51) Metastasis to spinal column (HCC) (C34.90) NSCLC with EGFR mutation (HCC) Assessment: -67 yo female who was in very good general health diagnosed with metastatic EGFR mutation (exon 19) NSCLC of the RML with an isolated metastasis to T7. -KPS is 80-90%. -She continues to tolerate osimertinib well. -Back pain stable. Has appointment with CPM. -Status post SBRT to primary lung tumor. -Reviewed CT images with her. Etiology of trace ascites in pelvis not clear and not entirely visible to me. Bladder seems large. Lung findings stable post RT. Plan: -Pre and post void US. -Otherwise CBC/CMP/PHOS/MAG in 3 months. -CBC/CMP/PHOS/MAG/CT C/A/P then OV in 6 months. -q 3 month Zometa. -Follow up with CPM and PCP. Portions of this documentation were copied and pasted from previous office visit notes in order to provide a cohesive continuity of the history. The note has been reviewed and edited and updated as necessary. I spent a total of 30 minutes on the date of the service which included preparing to see the patient, [id number] patient care, completing clinical documentation, obtaining and/or reviewing separately obtained history, performing a medically appropriate examination, counseling and educating the patient/family/caregiver, ordering medications, tests, or procedures, independently interpreting results (not separately reported), and communicating results to the patient/family/caregiver. Esau Jimenez DO Referring Provider: ESAU JIMENEZ [[id number]] Allergies As of Date: 06/14/2024 Noted Allergy Reaction NICKEL 09/25/2008 SEPTRA (SULFAMETHOXAZOLE-TRIMETHO*11/03/2005 SULFA (SULFONAMIDE ANTIBIOTICS) 11/03/2005 THIMEROSAL 11/03/2005 TORADOL (KETOROLAC) 03/12/2022 5 - Intolerance Comments: Sweating, anxiety, warmth sensation Date Reviewed: 06/14/2024 Reviewed by: Heena Leong MA - Fully Assessed Reason for Visit: Established Patient [175] Primary Visit Diagnosis:Malignant neoplasm of middle lobe of right lung (HCC) [C34.2] Other Visit Diagnoses:Metastasis to spinal column (HCC) [C79.51] Urinary retention [R33.9] Order(s):CT CHEST W IVCON [[id number]] Order #: [id number] FUTURE iv contrast (will be provided with radiology test)CT Chest W -Inject, intravenously, once for 1 dose.No IV access, insert saline lock prior to the beginning of sedation, infusion, injection of imaging exam. Discontinue saline lock post exam. If Pt. has a central line or IVAD, may access for administration according to line specific nursing protocol. Once exam is complete flush line and de-access according to line specific nursing protocol in the CT contrast administration guidelines link.Disp: 1 EachRfl: 0 CT ABD/PEL W IVCON [[id number]] Order #: [id number] FUTURE iv contrast (will be provided with radiology test)CT ABD/PEL -Inject, intravenously, once for 1 dose.No IV access, insert saline lock prior to the beginning of sedation, infusion, injection of imaging exam. Discontinue saline lock post exam. If Pt. has a central line or IVAD, may access for administration according to line specific nursing protocol. Once exam is complete flush line and de-access according to line specific nursing protocol in the CT contrast administration guidelines link.Disp: 1 EachRfl: 0 enteric contrast (will be provided with radiology test)For CT ABD/PEL W IVCON Routine order Administer, As Directed One Time Only, via Oral, Rectal, both Oral and Rectal, Enteric Tube, Stoma or Indwelling Catheter, Enteric Contrast as designated per enteric contrast guidelinesDisp: 1 EachRfl: 0 US PELVIS BLADDER [[id number]] Order #: [id number] FUTURE Follow-up and Disposition History for Encounter Date Provider Department Center 06/14/2024 [id number] JIMENEZ [place] Prescriptions as of 06/17/2024 - metroNIDAZOLE (METROGEL) 0.75 % Topical Gel Apply to affected area two times a day. - TURMERIC ORAL Take 15 mg by mouth once daily. - ubidecarenone Q-10 (CO Q-10) 10 mg cap Take 10 mg by mouth once daily. - iv contrast (will be provided with radiology test) CT Chest W -Inject, intravenously, once for 1 dose.No IV access, insert saline lock prior to the beginning of sedation, infusion, injection of imaging exam. Discontinue saline lock post exam. If Pt. has a central line or IVAD, may access for administration according to line specific nursing protocol. Once exam is complete flush line and de-access according to line specific nursing protocol in the CT contrast administration guidelines link. - iv contrast (will be provided with radiology test) CT ABD/PEL -Inject, intravenously, once for 1 dose.No IV access, insert saline lock prior to the beginning of sedation, infusion, injection of imaging exam. Discontinue saline lock post exam. If Pt. has a central line or IVAD, may access for administration according to line specific nursing protocol. Once exam is complete flush line and de-access according to line specific nursing protocol in the CT contrast administration guidelines link. - enteric contrast (will be provided with radiology test) For CT ABD/PEL W IVCON Routine order Administer, As Directed One Time Only, via Oral, Rectal, both Oral and Rectal, Enteric Tube, Stoma or Indwelling Catheter, Enteric Contrast as designated per enteric contrast guidelines - CYTOMEL 5 mcg tablet Take 5 mcg by mouth once daily. - iv contrast (will be provided with radiology test) CT ABD/PEL -Inject, intravenously, once for 1 dose.No IV access, insert saline lock prior to the beginning of sedation, infusion, injection of imaging exam. Discontinue saline lock post exam. If Pt. has a central line or IVAD, may access for administration according to line specific nursing protocol. Once exam is complete flush line and de-access according to line specific nursing protocol in the CT contrast administration guidelines link. - enteric contrast (will be provided with radiology test) For CT ABD/PEL W IVCON Routine order Administer, As Directed One Time Only, via Oral, Rectal, both Oral and Rectal, Enteric Tube, Stoma or Indwelling Catheter, Enteric Contrast as designated per enteric contrast guidelines - TAGRISSO 80 mg tablet TAKE 1 TABLET DAILY. - naproxen sodium (ALEVE) 220 mg tablet Take 220 mg by mouth two times a day with meals. - acetaminophen (TYLENOL EXTRA STRENGTH) 500 mg tablet Take 650 mg by mouth every 8 hours as needed. - MULTIVITAMIN ORAL Take 1 tablet by mouth once daily. - calcium carbonate (CALCIUM 500 ORAL) Take by mouth once daily. 6951-6964 daily Includes, Vit K1, 2, 7 - [id number]-[id number]-CTU-KCHH OIL ORAL Take 1 tablet by mouth once daily. - pregabalin (LYRICA) 75 mg capsule Take 75 mg by mouth two times a day. Three times daily - zoledronic acid (ZOMETA) 4 mg/5 mL injection Inject intravenously. - LACTOBACILLUS ACIDOPHILUS (PROBIOTIC ORAL) Take 1 tablet by mouth three times a week. Mon., Wed., Fri. - cholecalciferol (VITAMIN D3) 5,000 unit tab Take 1 capsule by mouth one time a week. Medication notes this encounter PREGABALIN 75 MG CAPSULE >> Heena Leong MA 06/14/2024 9:43 AM >> HEENA LEONG [facility] Jun 14, 2024 9:43 AM BID Problem List As Of Date 06/14/2024 Noted Resolved Postsurgical Hypothyroidism [E89.0] 12/27/2008 Lung mass [R91.8] 03/10/2022 Compression fracture of T7 vertebra (HCC) [S22.*03/11/2022 Acute bilateral thoracic back pain [M54.6] 03/11/2022 Hyponatremia [E87.1] 03/12/2022 Lung cancer (HCC) [C34.90] 04/09/2022 Metastasis to spinal column (HCC) [C79.51] 04/09/2022 NSCLC with EGFR mutation (HCC) [C34.90] 04/09/2022 Pre-op evaluation [Z01.818] 08/05/2022 Anemia [D64.9] 08/05/2022 Fluid overload [E87.70] 08/05/2022 GERD (gastroesophageal reflux disease) [K21.9] 08/05/2022 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 CBC/CMP/PHOS/MAG in 3 months.-DONE CBC/CMP/PHOS/MAG/CT C/A/P then OV in 6 months.-DONE María Koehler 06/14/2024 4:40 PM Signed Patient returned call and scheduled. María Gonzalez Allergies As of Date: 06/14/2024 Noted Allergy Reaction NICKEL 09/25/2008 SEPTRA (SULFAMETHOXAZOLE-TRIMETHO*11/03/2005 SULFA (SULFONAMIDE ANTIBIOTICS) 11/03/2005 THIMEROSAL 11/03/2005 TORADOL (KETOROLAC) 03/12/2022 5 - Intolerance Comments: Sweating, anxiety, warmth sensation Date Reviewed: 06/14/2024 Reviewed by: Heena Leong MA - Fully Assessed Prescriptions as of 06/14/2024 - metroNIDAZOLE (METROGEL) 0.75 % Topical Gel Apply to affected area two times a day. - TURMERIC ORAL Take 15 mg by mouth once daily. - ubidecarenone Q-10 (CO Q-10) 10 mg cap Take 10 mg by mouth once daily. - iv contrast (will be provided with radiology test) CT Chest W -Inject, intravenously, once for 1 dose.No IV access, insert saline lock prior to the beginning of sedation, infusion, injection of imaging exam. Discontinue saline lock post exam. If Pt. has a central line or IVAD, may access for administration according to line specific nursing protocol. Once exam is complete flush line and de-access according to line specific nursing protocol in the CT contrast administration guidelines link. - iv contrast (will be provided with radiology test) CT ABD/PEL -Inject, intravenously, once for 1 dose.No IV access, insert saline lock prior to the beginning of sedation, infusion, injection of imaging exam. Discontinue saline lock post exam. If Pt. has a central line or IVAD, may access for administration according to line specific nursing protocol. Once exam is complete flush line and de-access according to line specific nursing protocol in the CT contrast administration guidelines link. - enteric contrast (will be provided with radiology test) For CT ABD/PEL W IVCON Routine order Administer, As Directed One Time Only, via Oral, Rectal, both Oral and Rectal, Enteric Tube, Stoma or Indwelling Catheter, Enteric Contrast as designated per enteric contrast guidelines - CYTOMEL 5 mcg tablet Take 5 mcg by mouth once daily. - iv contrast (will be provided with radiology test) CT ABD/PEL -Inject, intravenously, once for 1 dose.No IV access, insert saline lock prior to the beginning of sedation, infusion, injection of imaging exam. Discontinue saline lock post exam. If Pt. has a central line or IVAD, may access for administration according to line specific nursing protocol. Once exam is complete flush line and de-access according to line specific nursing protocol in the CT contrast administration guidelines link. - enteric contrast (will be provided with radiology test) For CT ABD/PEL W IVCON Routine order Administer, As Directed One Time Only, via Oral, Rectal, both Oral and Rectal, Enteric Tube, Stoma or Indwelling Catheter, Enteric Contrast as designated per enteric contrast guidelines - TAGRISSO 80 mg tablet TAKE 1 TABLET DAILY. - naproxen sodium (ALEVE) 220 mg tablet Take 220 mg by mouth two times a day with meals. - acetaminophen (TYLENOL EXTRA STRENGTH) 500 mg tablet Take 650 mg by mouth every 8 hours as needed. - MULTIVITAMIN ORAL Take 1 tablet by mouth once daily. - calcium carbonate (CALCIUM 500 ORAL) Take by mouth once daily. [id number] daily Includes, Vit K1, 2, 7 - LKLZN-4-IFD-QXL-FSP-UZGD OIL ORAL Take 1 tablet by mouth once daily. - pregabalin (LYRICA) 75 mg capsule Take 75 mg by mouth two times a day. Three times daily - zoledronic acid (ZOMETA) 4 mg/5 mL injection Inject intravenously. - LACTOBACILLUS ACIDOPHILUS (PROBIOTIC ORAL) Take 1 tablet by mouth three times a week. Mon., Wed., Fri. - cholecalciferol (VITAMIN D3) 5,000 unit tab Take 1 capsule by mouth one time a week. 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 No need for BMP tomorrow. María Gonzalez 06/14/2024 9:16 AM Signed Lab cancelled. Patient aware. María Gonzalez Allergies As of Date: 06/13/2024 Noted Allergy Reaction NICKEL 09/25/2008 SEPTRA (SULFAMETHOXAZOLE-TRIMETHO*11/03/2005 SULFA (SULFONAMIDE ANTIBIOTICS) 11/03/2005 THIMEROSAL 11/03/2005 TORADOL (KETOROLAC) 03/12/2022 5 - Intolerance Comments: Sweating, anxiety, warmth sensation Date Reviewed: 06/07/2024 Reviewed by: Kyree Sanchez, RT(R) - Fully Assessed Reason for Visit: Results [95] Prescriptions as of 06/14/2024 - CYTOMEL 5 mcg tablet Take 5 mcg by mouth once daily. - iv contrast (will be provided with radiology test) CT ABD/PEL -Inject, intravenously, once for 1 dose.No IV access, insert saline lock prior to the beginning of sedation, infusion, injection of imaging exam. Discontinue saline lock post exam. If Pt. has a central line or IVAD, may access for administration according to line specific nursing protocol. Once exam is complete flush line and de-access according to line specific nursing protocol in the CT contrast administration guidelines link. - enteric contrast (will be provided with radiology test) For CT ABD/PEL W IVCON Routine order Administer, As Directed One Time Only, via Oral, Rectal, both Oral and Rectal, Enteric Tube, Stoma or Indwelling Catheter, Enteric Contrast as designated per enteric contrast guidelines - TAGRISSO 80 mg tablet TAKE 1 TABLET DAILY. - naproxen sodium (ALEVE) 220 mg tablet Take 220 mg by mouth two times a day with meals. - acetaminophen (TYLENOL EXTRA STRENGTH) 500 mg tablet Take 650 mg by mouth every 8 hours as needed. - MULTIVITAMIN ORAL Take 1 tablet by mouth once daily. - calcium carbonate (CALCIUM 500 ORAL) Take by mouth once daily. 4207-3608 daily - SESIW-0-NNL-IYI-IXG-PORL OIL ORAL Take 1 tablet by mouth once daily. - pregabalin (LYRICA) 75 mg capsule Take 75 mg by mouth three times a day. Three times daily - zoledronic acid (ZOMETA) 4 mg/5 mL injection Inject intravenously. - LACTOBACILLUS ACIDOPHILUS (PROBIOTIC ORAL) Take 1 tablet by mouth three times a week. Mon., Wed., Fri. - cholecalciferol (VITAMIN D3) 5,000 unit tab Take 1 capsule by mouth one time a week. 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] 08/11/2022 Status post thoracic spinal fusion [Z98.1] 08/11/2022 Encounter Status:Closed by MARÍA GONZALEZ on 06/14/24 CT ABD/PEL W IVCON Observed: 06/07/2024 9:38 AM Status: F Source: [facility] * * *Final Report* * * DATE OF EXAM: Jun 07 2024 9:38AM [facility] 0530 - CT ABD/PEL W IVCON / PROCEDURE REASON: multiple diagnoses * * * * Physician Interpretation * * * * EXAMINATION: CT ABDOMEN AND PELVIS WITH IV CONTRAST CLINICAL HISTORY: Metastatic lung cancer TECHNIQUE: CT of the abdomen and pelvis was performed using standard technique, scanning from just above the dome of the diaphragm to the symphysis pubis. MQ: CTAP_3 Contrast: IV: 94 ml of Omnipaque 350 Oral: 10 ml of Omni 240 10-25ml diluted with water CT Radiation dose: Integrated Dose-length product (DLP) for this visit = 386 mGy*cm. CT Dose Reduction Employed: Automated exposure control(AEC) and iterative recon COMPARISON: CT abdomen pelvis dated 03/20/2024 RESULT: Liver: Stable subcentimeter hypodense too small to characterize right hepatic lesion. No new or enlarging suspicious hepatic lesion. Biliary: No bile duct dilation. Spleen: No mass. No splenomegaly. Pancreas: No mass or duct dilation. Adrenals: No mass. Kidneys: Symmetric nephrograms with no evidence of hydronephrosis. Stable subcentimeter hypodense too small to characterize left renal lesion. GI tract: No dilation or wall thickening. Lymph nodes: No abdominal or pelvic lymphadenopathy. Mesentery/Peritoneum: Trace pelvic free fluid. Retroperitoneum: No mass. Vasculature: Abdominal aorta normal in caliber. Pelvis: Bladder normal in appearance. No CT evidence of suspicious adnexal mass. Trace pelvic free fluid. Bones/Soft Tissues: Stable sclerotic lesions in the right and left acetabulum. Stable additional small sclerotic lesion in the proximal right femur. Minimal grade 1 anterolisthesis of L3 on L4. 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 Lower thorax: A chest CT performed will be reported separately. Localizer images: Status post fusion of the mid thoracic spine. See separate dictation of concurrently performed CT chest for details. IMPRESSION: 1. Stable small sclerotic osseous metastases within the pelvis. 2. No CT evidence of new or enlarging mass or lymphadenopathy in the abdomen or pelvis. 3. New trace nonspecific pelvic free fluid. Supervisor [employer]: PSCB Transcribe Date/Time: Jun 12 2024 11:44A Dictated by : LOIS LEO MD This examination was interpreted and the report reviewed and electronically signed by: LOIS LEO MD on Jun 12 2024 11:50AM EST [id number] CT CHEST W IVCON Observed: 06/07/2024 9:38 AM Status: F Source: [facility] * * *Final Report* * * DATE OF EXAM: Jun 07 2024 9:38AM [facility] 0539 - CT CHEST W IVCON / PROCEDURE REASON: multiple diagnoses * * * * Physician Interpretation * * * * EXAMINATION: CHEST CT WITH CONTRAST CLINICAL HISTORY: Lung cancer. Status post radiation therapy. Technique: Spiral CT acquisition of the chest from the thoracic inlet to the upper abdomen following IV contrast. MQ: CTCW_6 Contrast: 94 mL Omnipaque [address] Radiation dose: Integrated Dose-length product (DLP) for this visit = 386 mGy*cm CT Dose Reduction Employed: Automated exposure control(AEC) and iterative recon Comparison: CT chest on 03/20/2024 RESULT: Limitations: None. Lines, tubes, and devices: None. Lung parenchyma and airways: The central airways are patent. There is a stable consolidative opacity in the right middle lobe abutting the border of the right heart measuring 3.7 x 2 cm, series 10 image 127. Atelectasis seen in the right middle lobe and left lower lobe. No new consolidations seen. No suspicious lung nodules. No new masses. Pleural space: No pleural effusion. No pleural thickening. Lower neck, lymph nodes, and mediastinum: The imaged thyroid gland is normal. No lymphadenopathy in the supraclavicular, axillary, mediastinal, or hilar regions. Heart, pericardium, and thoracic vessels: The thoracic aorta and main pulmonary artery are normal in caliber. The cardiac chambers are normal in size. No coronary artery atherosclerotic calcifications are noted, although the study is not optimized for coronary assessment. No pericardial effusion or thickening. Bones and soft tissues: There is pectus excavatum. Posterior spinal fusion and corpectomy are demonstrated in the in the mid thoracic spine, with posterior angulation and similar vertebral body retropulsion. Stable chest wall soft tissue. Upper abdomen: A dedicated CT abdomen and pelvis was performed concurrently and has been reported separately. Localizer images: No additional findings. IMPRESSION: Consolidative opacity in the right middle lobe unchanged compared to prior study. No CT evidence of thoracic lymphadenopathy. Other findings as described above. Supervisor [employer]: MIN Transcribe Date/Time: Jun 12 2024 9:18A Dictated by : CLIFTON ALBERT MD This examination was interpreted and the report reviewed and electronically signed by: CLIFTON ALBERT MD on Jun 12 2024 4:36PM EST [id number] PROGRESS Observed: 06/07/2024 9:00 AM Status: COMPLETED Source: [facility] ID: [id number] Author: KYREE SANCHEZ RT(R) Service: ? Author Type: Forensic Investigator Type: Progress Notes Filed: 06/07/2024 16:06 Note Text: Radiology Service Progress Note DATE OF SERVICE: June 07, 2024 TIME: 4:05 PM PATIENT IDENTITY VERIFICATION COMPLETED USING TWO (2) STANDARD IDENTIFIERS: Name and Date of confirmed by patient verbally. FALL SCREENING: Has the patient had 2 falls in the last year or 1 fall with injury or currently using an Ambulatory Assistive Device (Walker, Cane, Wheelchair, Crutches, etc.)? No PATIENT GENDER DATA: Female. status: : No status: NO. PATIENT RELEVANT IMPLANT DATA REVIEWED: Yes PATIENT PRESENTS WITH AN IMPLANTABLE OR ATTACHED DUPLICATING MACHINE SERVICER: No ALLERGIES: Reviewed and unchanged CONTRAST ALLERGY: NO. EXAM: CT -CONTRAST INDUCED NEPHROPATHY RISK FACTORS: Patient age > 60 years CREATININE: Creatinine Date Value Ref Range Status 06/07/2024 0.79 0.58 - 0.96 mg/dL Final 03/20/2024 0.79 0.58 - 0.96 mg/dL Final 12/29/2023 0.79 0.58 - 0.96 mg/dL Final Estimated Glomerular Filtration Rate Date Value Ref Range Status 06/07/2024 83 >=60 mL/min/1.73m? Final Comment: Estimated Glomerular Filtration Rate (eGFR) is calculated using the 2020 CKD-EPI creatinine equation. This equation utilizes serum creatinine, sex, and age as parameters. The creatinine assay has traceable calibration to isotope dilution-mass spectrometry. Refer to KDIGO guidelines for clinical interpretation. In patients with unstable renal function, e.g. those with acute kidney injury, the eGFR may not accurately reflect actual GFR. eGFR- Date Value Ref Range Status 01/13/2009 >60 Final P.O.C.T. RESULTS: POC done: Yes, See Lab Tab June 07, 2024 TREATMENT: N/A PERIPHERAL IV DATA: Ambulatory: A peripheral IV was started in the Left antecubital site with a Angio cath: 22 gauge. RADIOLOGY DEPARTMENT: CT; Exam(s) Completed: Chest Abdomen Pelvis SIGNATURE: RT Savita(R) PATIENT NAME: Ashtyn Laurent DATE: June 07, 2024 TIME: 4:05 PM CBC W AUTO DIFF BLD Collected: 06/07/2024 7:[address] atus: F Source: [facility] Order Comment: Specimen Type : BLOOD SPECIMEN Ordering Facility: [facility] Address: [address] [place] [address] TYPE CODE TESTS RESULT OUT OF RANGE REFERENCE UNITS LAB 6690-2([facility]) WBC # Bld Auto 3.19 Low 3.70-11.00 k/uL LAB 789-8([facility]) RBC # Bld Auto 4.18 3.90-5.20 m/ uL LAB 718-7([facility]) Hgb Bld-mCnc 13.8 11.5-15.5 g/dL LAB 4544-3([facility]) Hct VFr Bld Auto 39.6 36.0-46.0 % LAB 787-2([facility]) MCV RBC Auto 94.7 80.0-100.0 fL LAB 785-6([facility]) MCH RBC Qn Auto 33.0 26.0-34.0 p g LAB 786-4([facility]) MCHC RBC Auto-mCnc 34.8 30.5-36.0 g/dL LAB 08956-7([facility]) RDW RBC-Rto 13.4 11.5-15.0 % LAB 777-3([facility]) Platelet # Bld Auto 239 150-400 k/uL LAB 61190-9([facility]) PMV Bld Auto 9.4 9.0-12.7 fL LAB 770-8([facility]) Neutrophils/leuk NFr Bld Auto 55.0 % LAB 751-8([facility]) Neutrophils # Bld Auto 1.75 1.45-7.50 k/uL LAB 736-9([facility]) Lymphocytes/leuk NFr Bld Auto 23.8 % LAB 731-0([facility]) Lymphocytes # Bld Auto 0.76 Low 1.00-4.00 k/uL LAB 5905-5([facility]) Monocytes/leuk NFr Bld Auto 15.0 % LAB 742-7([facility]) Monocytes # Bld Auto 0.48 <0.87 k/uL LAB 713-8([facility]) Eosinophil/leuk NFr Bld Auto 5.0 % LAB 711-2([facility]) Eosinophil # Bld Auto 0.16 <0.46 k/uL LAB 706-2([facility]) Basophils/leuk NFr Bld Auto 0.9 % LAB 704-7([facility]) Basophils # Bld Auto 0.03 <0.11 k/uL LAB 09256-9([facility]) Imm Granulocytes/harish k NFr Bld Auto 0.3 % LAB 01041-8([facility]) Imm Granulocytes # Bld Auto <0.03 <0.10 k/uL LAB 02283-8([facility]) nRBC/100 WBC Bld-Rto 0.0 /100 WBC LAB 771-6([facility]) nRBC # Bld Auto <0.01 <0.01 k/u L LAB 13062-0([facility]) Differential method Bld Auto Performed By: #### [id number] # ### [facility] CLIA [id number] [address] [place] [address] [place] COMP METAB 2000 PNL SERPL Collected: 7:35 AM Status: F Source: [facility] Order Comment: Specimen Type : BLOOD SPECIMEN Ordering Facility: [facility] Address: [address] [place] [address] TYPE CODE TESTS RESULT OUT OF RANGE REFERENCE UNITS LAB 2885-2([facility]) Prot SerPl-mCnc 7.1 6.3-8.0 g/dL LAB 1751-7([facility]) Albumin SerPl-mCnc 4.9 3.9-4.9 g/dL LAB 33020-7([facility]) Calcium SerPl-mCnc 9.3 8.5-10.2 mg/dL LAB 1975-2([facility]) Bilirub SerPl-mCnc 0.4 0.2-1.3 mg/dL LAB 6768-6([facility]) ALP SerPl-cCnc 50 34-123 U/L LAB 1920-8([facility]) AST SerPl-cCnc 54 High 13-35 U/L LAB 1742-6(LOINC) ALT SerPl-cCnc 32 7-38 U/L LAB 2345-7(LOINC) Glucose SerPl-mCnc 95 74-99 mg/dL Result Comment: The [place] [employer] (ADA) provides guidance for cutoff values for fasting glucose and random glucose. The ADA defines fasting as no caloric intake for at least 8 hours. Fasting plasma glucose results between 100 to 125 mg/dL indicate increased risk for diabetes (prediabetes). Fasting plasma glucose results greater than or equal to 126 mg/dL meet the criteria for diagnosis of diabetes. In the absence of unequivocal hyperglycemia, results should be confirmed by repeat testing. In a patient with classic symptoms of hyperglycemia or hyperglycemic crisis, random plasma glucose results greater than or equal to 200 mg/dL meet the criteria for diagnosis of diabetes. Reference: Standards of Medical Care in Diabetes 2016, [place] [employer]. Diabetes Care. 2016.39(Suppl 1). LAB 3094-0(LOINC) BUN SerPl-mCnc 20 7-21 mg/ dL LAB 2160-0(LOINC) Creat SerPl-mCnc 0.79 0.58-0.96 mg/dL LAB 2951-2(LOINC) Sodium SerPl-sCnc 135 Low 136-144 mmol/L LAB 2823-3(LOINC) Potassium SerPl-sCnc 4.7 3.7-5.1 mmol/L LAB 2075-0(LOINC) Chloride SerPl-sCnc 99 98-107 mmol/L LAB 2028-9(LOINC) CO2 SerPl-sCnc 26 22-30 mmo l/L LAB 94759-0(LOINC) Anion Gap SerPl-sCnc 10 8-15 mmol/L LAB 71255-1(LOINC) Creatinine + eGFR Pnl SerPlBld 83 >=60 mL/min/1 .73m??? Result Comment: Estimated Gl omerular Filtration Rate (eGFR) is calculated using the 2020 CKD-EPI creatinine equation. This equation utilizes serum creatinine, sex, and age as parameters. The creatinine assay has traceable calibration to isotope dilution-mass spectrometry. Refer to KDIGO guidelines for clinical interpretation. In patients with unstable renal function, e.g. those with acute kidney injury, the eGFR may not accurately reflect actual GFR. Performed By: #### 90291-7, 2777-1, 47768-3 #### [facility] CLIA [id number] [address] [place] [address] [place] PHOSPHATE SERPL-MCNC Collected: 06/07/2024 7:35 AM S tatus: F Source: [facility] Order Comment: Specimen Type : BLOOD SPECIMEN Ordering Facility: [facility] Address: [address] [place] [address] TYPE CODE TESTS RESULT OUT OF RANGE REFERENCE UNITS LAB 2777-1(LOINC) Phosphate SerPl-mCnc 4.4 2.7-4.8 mg/dL Performed By: #### 25516-2, 2777-1, 83519-1 #### [facility] CLIA [id number] [address] [place] [address] OF DARIEL MAGNESIUM SERPL-MCNC Collected: 06/07/2024 7:35 AM S tatus: F Source: [facility] Order Comment: Specimen Type : BLOOD SPECIMEN Ordering Facility: [facility] Address: [address] [place] [address] TYPE CODE TESTS RESULT OUT OF RANGE REFERENCE UNITS LAB 34215-3(LOINC) Magnesium SerPl-mCnc 2.4 High 1.7-2.3 mg/dL Performed By: #### 41390-6, 2777-1, 98026-7 #### [facility] CLIA [id number] [address] [place] [address] [place] DATE TYPE / CODE NAME / CODE REACTION SEVERITY SOURCE 03/12/2022 DRUG INGREDI/508895 003(SNOMED CT) KETOROLAC INTOLERANCE [facility] 09/25/2008 DRUG INGREDI/311246 003(SNOMED CT) NICKEL [facility] 11/03/2005 DRUG/115589674 (SNOMED CT) SULFAMETHOXAZOLE-TRI METHOPRIM [facility] 11/03/2005 Drug Class/08595197 3(SNOMED CT) SULFA (SULFONAMIDE ANTIBIOTICS) [facility] 11/03/2005 DRUG INGREDI/741810 003(SNOMED CT) THIMEROSAL [facility] ENCOUNTERS ADMIT/DISCHARGE ACCOUNT NUMBER ADMITTING ENCOUNTER CLASS LOC ATION SOURCE 06/01/2025/ 5 [id number] [facility] 05/17/2025/ 5 [id number] [facility] 05/17/2025/ 5 [id number] [facility] 03/27/2025/ 5 [id number] [facility] 02/22/2025/ 5 [id number] [facility] 02/22/2025/ 5 [id number] [facility] 01/07/2025/ 5 [id number] [facility] 12/26/2024/ 5 [id number] [facility] 12/20/2024/ 5 [id number] [facility] 12/06/2024/ 5 [id number] [facility] 12/06/2024/ 5 [id number] [facility] 12/04/2024/ 5 [id number] [facility] 11/30/2024/ 5 [id number] [facility] 11/30/2024/ 5 [id number] [facility] 11/27/2024/ 5 [id number] [facility] 11/15/2024/ 5 [id number] [facility] 09/07/2024/ 5 [id number] [facility] 09/07/2024/ 5 [id number] [facility] 08/06/2024/ 4 [id number] [facility] 06/18/2024/ 4 [id number] [facility] 06/14/2024/ 4 [id number] [facility] 06/14/2024/ 4 [id number] [facility] 06/07/2024/ 4 [id number] [facility] 06/07/2024/ 4 [id number] [facility] 06/07/2024/ 4 [id number] [facility] PAYERS ENCOUNTER GUARANTOR PAYER SUBSCRIBER SOURCE 06/01/2025 Primary Insuranc e:MEDICARE A AND BPolicy Number: [id number] Date:0222-84-47Sdlh Name:Faina CHAVEZ: [id number] [place] [address] [facility] 06/01/2025 Secondary Insura nce:MMO MEDICARE SUPPLEMENTPolicy Number: [id number] Date:4893-88-69Rwrp Name:Mara CHAVEZ: [id number] [place] [address] [facility] 05/17/2025 Primary Insuranc e:MEDICARE A AND BPolicy Number: [id number] Date:8183-18-85Ykoa Name:Faina Whitmore KATHY: [id number] [place] [address] [facility] 05/17/2025 Secondary Insura nce:MMO MEDICARE SUPPLEMENTPolicy Number: [id number] Date:8718-68-37Jkfv Name:Mara Whitmore KATHY: [id number] [facility] [address] [facility] 05/17/2025 Primary Insuranc e:MEDICARE A AND BPolicy Number: [id number] Date:2873-77-66Grka Name:Faina Whitmore KATHY: [id number] [facility] [place] [address] [facility] 05/17/2025 Secondary Insura nce:MMO MEDICARE SUPPLEMENTPolicy Number: [id number] Date:6213-70-57Yref Name:Mara Whitmore KATHY: [id number] [facility] [place] [address] [facility] 03/27/2025 Primary Insuranc e:MEDICARE A AND BPolicy Number: [id number] Date:9356-19-00Lcwj Name:Faina Whitmore KATHY: [id number] [place] [address] [facility] 03/27/2025 Secondary Insura nce:MMO MEDICARE SUPPLEMENTPolicy Number: [id number] Date:3133-15-48Pxrh Name:Mara Whitmore KATHY: [id number] [place] [address] [facility] 02/22/2025 Primary Insuranc e:MEDICARE A AND BPolicy Number: [id number] Date:6595-40-03Fyag Name:Faina Whitmore ERIKB: [id number] [place] [address] [facility] 02/22/2025 Secondary Insura nce:MMO MEDICARE SUPPLEMENTPolicy Number: [id number] Date:6152-26-28Hicl Name:Mara Whitmore ERIKB: [id number] [place] [address] [facility] 02/22/2025 Primary Insuranc e:MEDICARE A AND BPolicy Number: [id number] Date:9633-82-82Hjnh Name:Faina Whitmore ERIKB: [id number] [place] [address] [facility] 02/22/2025 Secondary Insura nce:MMO MEDICARE SUPPLEMENTPolicy Number: [id number] Date:9357-87-19Ifyc Name:Mara Whitmore ERIKB: [id number] [place] [address] [facility] 01/07/2025 Primary Insuranc e:MEDICARE A AND BPolicy Number: [id number] Date:2011-71-55Gyud Name:Faina Whitmore ERIKB: [id number] [place] [address] [facility] 01/07/2025 Secondary Insura nce:MMO MEDICARE SUPPLEMENTPolicy Number: [id number] Date:5918-73-39Esoc Name:Mara Whitmore ERIKB: [id number] [place] [address] [facility] 12/26/2024 Primary Insuranc e:MEDICARE A AND BPolicy Number: [id number] Date:2960-56-84Nakd Name:Faina Whitmore ERIKB: [id number] [place] [address] [facility] 12/26/2024 Secondary Insura nce:MMO MEDICARE SUPPLEMENTPolicy Number: [id number] Date:2974-47-33Dgsw Name:Mara Whitmore KATHY: [id number] [facility] [place] [address] [facility] 12/20/2024 Primary Insuranc e:MEDICARE A AND BPolicy Number: [id number] Date:2293-25-99Twbd Name:Faina Whitmore KATHY: [id number] [facility] [place] [address] [facility] 12/20/2024 Secondary Insura nce:MMO MEDICARE SUPPLEMENTPolicy Number: [id number] Date:3315-71-54Cpjj Name:Mara Whitmore KATHY: [id number] [place] [address] [facility] 12/06/2024 Primary Insuranc e:MEDICARE A AND BPolicy Number: [id number] Date:5274-81-96Dvuw Name:Faina Whitmore KATHY: [id number] [place] [address] [facility] 12/06/2024 Secondary Insura nce:MMO MEDICARE SUPPLEMENTPolicy Number: [id number] Date:6419-59-21Gowx Name:Mara Whitmore KATHY: [id number] [place] [address] [facility] 12/06/2024 Primary Insuranc e:MEDICARE A AND BPolicy Number: [id number] Date:9307-84-99Ghyi Name:Faina Whitmore KATHY: [id number] [facility] [place] [address] [facility] 12/06/2024 Secondary Insura nce:MMO MEDICARE SUPPLEMENTPolicy Number: [id number] Date:6356-29-89Ydmd Name:Mara Whitmore KATHY: [id number] [place] [address] [facility] 12/04/2024 Primary Insuranc e:MEDICARE A AND BPolicy Number: [id number] Date:5456-64-68Nipr Name:Faina Whitmore KATHY: [id number] [place] [address] [facility] 12/04/2024 Secondary Insura nce:MMO MEDICARE SUPPLEMENTPolicy Number: [id number] Date:8184-57-18Ibos Name:Mara Whitmore KATHY: [id number] [facility] [place] [address] [facility] 11/30/2024 Primary Insuranc e:MEDICARE A AND BPolicy Number: [id number] Date:4441-61-25Lwqy Name:Faina Whitmore KATHY: [id number] [place] [address] [facility] 11/30/2024 Secondary Insura nce:MMO MEDICARE SUPPLEMENTPolicy Number: [id number] Date:9811-98-74Pivq Name:Mara Whitmore KATHY: [id number] [place] [address] [facility] 11/30/2024 Primary Insuranc e:MEDICARE A AND BPolicy Number: [id number] Date:1478-35-28Ytxo Name:Faina Whitmore KATHY: [id number] [place] [address] [facility] 11/30/2024 Secondary Insura nce:MMO MEDICARE SUPPLEMENTPolicy Number: [id number] Date:8617-55-44Lfhx Name:Mara Whitmore KATHY: [id number] [place] [address] [facility] 11/27/2024 Primary Insuranc e:MEDICARE A AND BPolicy Number: [id number] Date:0995-50-36Pely Name:Faina Whitmore ERIKB: [id number] [place] [address] [facility] 11/27/2024 Secondary Insura nce:MMO MEDICARE SUPPLEMENTPolicy Number: [id number] Date:1880-16-86Oslt Name:Mara Whitmore ERIKB: [id number] [place] [address] [facility] 11/15/2024 Primary Insuranc e:MEDICARE A AND BPolicy Number: [id number] Date:0465-84-39Egcm Name:Faina Whitmore ERIKB: [id number] [place] [address] [facility] 11/15/2024 Secondary Insura nce:MMO MEDICARE SUPPLEMENTPolicy Number: [id number] Date:4106-97-78Yifj Name:Mara Whitmore ERIKB: [id number] [place] [address] [facility] 09/07/2024 Primary Insuranc e:MEDICARE A AND BPolicy Number: [id number] Date:6274-04-82Xsmm Name:Faina Whitmore ERIKB: [id number] [place] [address] [facility] 09/07/2024 Secondary Insura nce:MMO MEDICARE SUPPLEMENTPolicy Number: [id number] Date:4403-37-41Rdnu Name:Mara Whitmore ERIKB: [id number] [place] [address] [facility] 09/07/2024 Primary Insuranc e:MEDICARE A AND BPolicy Number: [id number] Date:2211-47-18Tojr Name:Faina Whitmore ERIKB: [id number] [place] [address] [facility] 09/07/2024 Secondary Insura nce:MMO MEDICARE SUPPLEMENTPolicy Number: [id number] Date:5282-19-79Gqgw Name:Mara Whitmore KATHY: [id number] [facility] [place] [address] [facility] 08/06/2024 Primary Insuranc e:MEDICARE A AND BPolicy Number: [id number] Date:4770-90-49Qiud Name:Faina Whitmore KATHY: [id number] [facility] [address] [facility] 08/06/2024 Secondary Insura nce:MMO MEDICARE SUPPLEMENTPolicy Number: [id number] Date:8122-00-86Ajyi Name:Mara Whitmore KATHY: [id number] [place] [address] [facility] 06/18/2024 Primary Insuranc e:MEDICARE A AND BPolicy Number: [id number] Date:9251-37-03Goxx Name:Faina Whitmore KATHY: [id number] [place] [address] [facility] 06/18/2024 Secondary Insura nce:MMO MEDICARE SUPPLEMENTPolicy Number: [id number] Date:0556-50-13Nycv Name:Mara Whitmore KATHY: [id number] [place] [address] [facility] 06/14/2024 Primary Insuranc e:MEDICARE A AND BPolicy Number: [id number] Date:9988-11-75Zuer Name:Faina Whitmore KATHY: [id number] [facility] [address] [facility] 06/14/2024 Secondary Insura nce:MMO MEDICARE SUPPLEMENTPolicy Number: [id number] Date:0759-69-57Zyju Name:Mara Whitmore KATHY: [id number] [place] [address] [facility] 06/14/2024 Primary Insuranc e:MEDICARE A AND BPolicy Number: [id number] Date:9056-65-68Devi Name:Faina Whitmore KATHY: [id number] [place] [address] [facility] 06/14/2024 Secondary Insura nce:MMO MEDICARE SUPPLEMENTPolicy Number: [id number] Date:2925-67-81Czoe Name:Mara Whitmore KATHY: [id number] [place] [address] [facility] 06/07/2024 Primary Insuranc e:MEDICARE A AND BPolicy Number: [id number] Date:1803-93-42Fago Name:Faina Whitmore KATHY: [id number] [place] [address] [facility] 06/07/2024 Secondary Insura nce:MMO MEDICARE SUPPLEMENTPolicy Number: [id number] Date:1518-83-42Abxs Name:Mara Whitmore KATHY: [id number] [place] [address] [facility] 06/07/2024 Primary Insuranc e:MEDICARE A AND BPolicy Number: [id number] Date:8227-05-94Hosn Name:Faina Whitmore KATHY: [id number] [place] [address] [facility] 06/07/2024 Secondary Insura nce:MMO MEDICARE SUPPLEMENTPolicy Number: [id number] Date:4001-72-09Zswu Name:Mara Whitmore KATHY: [id number] [place] [address] [facility] 06/07/2024 Primary Insuranc e:MEDICARE A AND BPolicy Number: [id number] Date:9295-44-97Vcbr Name:Faina CHAVEZ: [id number] [place] [address] [facility] 06/07/2024 Secondary Insura nce:MMO MEDICARE SUPPLEMENTPolicy Number: [id number] Date:3953-90-30Nidi Name:Mara CHAVEZ: [id number] [place] [address] [facility]
[2025-06-01 10:45] VITALS: BP 183/135; PULSE 62; RESP 14; TEMP 36.6; O2SAT 100; BMI 18.2
--- NOTE | 2025-06-01 10:59 | ED.VIS.GI ---
HPI HPI - GI History of Present Illness Chief Complaint: Foreign Body Narrative Narrative: 69-year-old female past medical history of hypothyroidism, has never had swallowing difficulties previously presents with a foreign body sensation in her throat. She states that yesterday evening she attempted to swallow a large multivitamin. She felt like it was caught in her throat. She may have coughed a little bit. However, she was able to eat and drink yesterday evening, and have coffee this morning. She thought that if she went to sleep and slept upright, that this sensation would be gone in the morning, however it still remains. She denies any previous difficulty swallowing or sensation of foreign body, no food getting stuck previously. She denies any difficulty breathing, and was able to drink liquids today, but still feels foreign body sensation in her throat right between her clavicles. [facility] Medical History Wears contact lenses Wears glasses Post-menopausal Former smoker Leg cramps Thyroid disease Tinnitus Multinodular goiter History of UTI Home Medications ?Medication ?Instructions ?Recorded ?Last Taken ?Type M 11/12/21 Unknown History Pterospilbene 11/12/21 Unknown History BROMELAIN 1 cap PO DAILY 06/01/25 05/31/25 History Lactobacillus acidophilus 10 100 mmu cells PO DAILY 06/01/25 05/31/25 History billion cell capsule (Probacap) acetaminophen 500 mg capsule 1,000 mg PO Q6H PRN fever or pain 06/01/25 06/01/25 History aluminum-magnesium hydroxide 200 30 ml PO Q4H PRN dyspepsia #3,000 06/01/25 Unknown Rx mg-200 mg/5 mL oral suspension mL antiarthritic combination no.2 900 900 mg PO DAILY 06/01/25 05/31/25 History mg tablet (glucosamine-chondroitin) ashwagandha root extract 300 mg 300 mg PO DAILY 06/01/25 05/31/25 History capsule calcium carbonate (Calcium 500) 500 mg PO DAILY 06/01/25 05/31/25 History coenzyme Q10 100 mg capsule (Co 100 mg PO DAILY 06/01/25 05/31/25 History Q-10) lansoprazole 30 mg capsule,delayed 30 mg PO BID #30 caps 06/01/25 Unknown Rx release (Prevacid) lidocaine HCl 2 % mucosal solution 15 ml PO Q4H PRN pain #300 mL 06/01/25 Unknown Rx (Lidocaine Viscous) magnesium 200 mg tablet 200 mg PO DAILY 06/01/25 05/31/25 History milk thistle 150 mg capsule 150 mg PO DAILY 06/01/25 05/31/25 History multivitamin (Daily Multi-Vitamin 1 tab PO DAILY 06/01/25 05/31/25 History tablet) osimertinib 80 mg tablet (Tagrisso) 80 mg PO DAILY 06/01/25 05/31/25 History pregabalin 75 mg capsule 75 mg PO DAILY 06/01/25 06/01/25 History turmeric 400 mg capsule 400 mg PO DAILY 06/01/25 05/31/25 History Allergy/AdvReac Type Severity Reaction Status Date / Time nickel Allergy Intermediate Swelling Verified 06/01/25 10:45 sulfamethoxazole (From Allergy Intermediate lip Verified 06/01/25 10:45 Bactrim) swelling trimethoprim (From Bactrim) Allergy Intermediate lip Verified 06/01/25 10:45 swelling thimerosal Allergy Swelling Verified 06/01/25 10:45 tramadol AdvReac Intermediate i go out Verified 06/01/25 10:45 of my mind Surgical History Hx of knee surgery History of hemorrhoidectomy History of thyroidectomy Social History Smoking Status: Former smoker ROS ROS ED ROS Narrative Review of systems positive for foreign body sensation in throat. Denies difficulty breathing, no difficulty swallowing, able to eat and drink without difficulty. EXAM Physical Exam Narrative Exam Narrative: Afebrile. Vital signs noted. Nontoxic-appearing. Cardiovascular examination regular rate and rhythm. Airway patent. No drooling or trismus. No noted foreign body in posterior pharynx. Const Vital Signs: 06/01/25 10:45 06/01/25 10:51 Temperature 97.8 F Temperature Source Temporal Pulse Rate 62 Respiratory Rate 14 Respiratory Effort Normal Non-Labored Blood Pressure 183/135 H Blood Pressure Mean 151 Pulse Ox 100 Oxygen Delivery Method Room Air MDM MDM MDM Narrative Medical decision making narrative: The differential diagnosis includes but not limited to aspirated foreign body versus foreign body esophagus versus globus hystericus versus pill esophagitis. Her pulse ox is 100% on room air without evidence of hypoxia. While she has an elevated blood pressure, I do feel it may be situational. She will be given a GI cocktail, and x-rays obtained of the soft tissue neck to look for radiopaque foreign body. I favor pill esophagitis/globus hystericus as she has been able to drink liquids and eat foods. I have lower suspicion for esophageal web as she has not had difficulty swallowing previously, and if she was able to take other pills this morning. X-ray of the soft tissue of the neck interpreted by myself independently shows no evidence of foreign body, airway patent. I reviewed the radiology report which confirms my independent interpretation. I discussed patient with Dr. Brush who would like her put on a GI cocktail every 4 hours for the next few days as well as Prevacid 30 milligrams twice a day by mouth. She should follow-up with him within the next week. KIRSTEN can be discharged safely home as she is eating and drinking well. Upon repeat examination, she states she feels the same. Regardless I do feel that she can be discharged with follow-up. Return instructions reviewed. Disposition is discharged home in stable condition. History & Record Review Discussion w/independent historian: Patient and Family () Radiography Diagnostic Testing: Clinical Impression(s) from Imaging Studies Soft Tissue Neck X-Ray 06/01/25 11:00 IMPRESSION: No evidence of radiopaque foreign body in the airway or proximal esophagus. No abnormal mass effect on the airway. Reading Location: [id number] Discharge Plan Triage Chief Complaint: Foreign Body ED Provider: Segundo Ramirez Dx/Rx/DC Orders Clinical Impression: Foreign body sensation in throat, Pill esophagitis, Globus sensation Instructions: ED Choking Spell (Adult) Prescriptions: New aluminum-magnesium hydroxide 200-200 mg/5 mL suspension 30 ml PO Q4H PRN (Reason: dyspepsia) Qty: 3000 0RF lidocaine HCl [Lidocaine Viscous] 2 % solution 15 ml PO Q4H PRN (Reason: pain) Qty: 300 0RF lansoprazole [Prevacid] 30 mg capsule,delayed release(DR/EC) 30 mg PO BID Qty: 30 0RF No Action (DME) M (DME) Pterospilbene pregabalin 75 mg capsule 75 mg PO DAILY Tagrisso 80 mg tablet 80 mg PO DAILY turmeric 400 mg capsule 400 mg PO DAILY coenzyme Q10 [Co Q-10] 100 mg capsule 100 mg PO DAILY milk thistle 150 mg capsule 150 mg PO DAILY Rx Instructions: give with meal/snack zeynepa root extract 300 mg capsule 300 mg PO DAILY multivitamin [Daily Multi-Vitamin] Tablet 1 tab PO DAILY acetaminophen 500 mg capsule 1,000 mg PO Q6H PRN (Reason: fever or pain) Probacap 10 billion cell capsule 100 mmu cells PO DAILY glucosamine-chondroitin 900 mg tablet 900 mg PO DAILY calcium carbonate [Calcium 500] 500 mg calcium (1,250 mg) tablet,chewable 500 mg PO DAILY magnesium 200 mg tablet 200 mg PO DAILY BROMELAIN 500 mg capsule 1 cap PO DAILY Primary Care Provider: Kathrin Reveles Referrals: Kathrin Reveles MD [Primary Care Provider, Internal Medicine] Friend,DO Du [Med Staff - Active Staff, Gastroenterology] - 3-5 Days Activity Restrictions/Additional Instructions: Take the GI cocktail (viscous lidocaine and aluminum magnesium hydroxide together) 4 times a day. Prevacid 30 mg twice a day by mouth. Follow-up with gastroenterology next week. Return with increased difficulty swallowing, new or worsening symptoms. Print Language: Jamaican Disposition Disposition: Home, Self Care
--- NOTE | 2025-06-01 11:00 | RAD_ITS ---
PROCEDURE: NECK FOR SOFT TISSUE 06/01/2025 REASON FOR EXAM: FOREIGN BODY SENSATION TECHNIQUE: Procedure Code: RADNE Modality: DX Procedure: NECK FOR SOFT TISSUE COMPARISON: Cervical spine CT, 02/08/2020. FINDINGS: There are surgical clips projected over the airway consistent with left hemithyroidectomy. There are no significant foreign bodies projected over the airway. The nasopharyngeal, oropharyngeal, hypopharyngeal and tracheal airway appear unremarkable. The epiglottis is normal. The proximal esophagus is unremarkable. There is multilevel degenerative disc disease of the cervical spine. RAD/Neck for Soft Tissue IMPRESSION: No evidence of radiopaque foreign body in the airway or proximal esophagus. No abnormal mass effect on the airway. Reading Location: [id number]
[2025-06-01] MEDS: Lidocaine 2% Viscous15 ML UDC 15 ML PO (11:14)
[2025-06-01 13:34] VITALS: BP 141/85; PULSE 55; RESP 16; TEMP 36.6; O2SAT 100
== END 2025-06-01 13:36 | disposition home or self-care (01) ==
PROVIDERS: Emergency Provider Emergency Medicine; PCP Internal Medicine; Visit Provider Emergency Medicine
DX: R09.A2 Foreign body sensation, throat (principal); K20.80 Other esophagitis without bleeding; R03.0 Elevated blood-pressure reading, without diagnosis of hypertension; Z87.891 Personal history of nicotine dependence; E03.9 Hypothyroidism, unspecified
CPT/HCPCS: 70360; 99283

== ENCOUNTER → 2025-06-14 | Outpatient (CLI) | payer MEDICARE, OTHER, SELFPAY ==
--- NOTE | 2025-06-14 10:45 | BI_ITS ---
EXAM: SCRN MAMM (CAD)W/LAURE BILAT DATE: 06/14/2025 CLINICAL HISTORY: F, Age 69 y/o , SCRN MAMM (CAD)W/LAURE BILAT TECHNIQUE: Procedure Code: [id number] Modality: MG Procedure: SCRN MAMM (CAD)W/LAURE BILAT COMPARISON: Prior exam(s) dated 06/06/2024, 05/26/2023. FINDINGS: TISSUE DENSITY: The breasts are extremely dense, which lowers the sensitivity of mammography. The mammogram demonstrates that the patient has dense breasts. Supplemental screening with whole breast ultrasound or MRI may be considered for further evaluation. Bilateral Breast Mammographic Findings: No significant masses, calcifications or other abnormalities are identified. BI/SCRN MAMM (CAD)W/LAURE BILAT IMPRESSION: There is no mammographic evidence of malignancy. OVERALL FINAL ASSESSMENT BI-RADS 1: NEGATIVE. RECOMMENDATION: Routine annual follow-up in 1 Year Additional Recommendation none A letter with findings and recommendations will be mailed to the patient. Reading Location: [id number]
--- NOTE | 2025-06-14 10:45 | BI_ITS ---
EXAM: SCRN MAMM (CAD)W/LAURE BILAT DATE: 06/14/2025 CLINICAL HISTORY: F, Age 69 y/o , SCRN MAMM (CAD)W/LAURE BILAT TECHNIQUE: Procedure Code: [id number] Modality: MG Procedure: SCRN MAMM (CAD)W/LAURE BILAT COMPARISON: Prior exam(s) dated 06/06/2024, 05/26/2023. FINDINGS: TISSUE DENSITY: The breasts are extremely dense, which lowers the sensitivity of mammography. The mammogram demonstrates that the patient has dense breasts. Supplemental screening with whole breast ultrasound or MRI may be considered for further evaluation. Bilateral Breast Mammographic Findings: No significant masses, calcifications or other abnormalities are identified. BI/SCRN MAMM (CAD)W/LAURE BILAT IMPRESSION: There is no mammographic evidence of malignancy. OVERALL FINAL ASSESSMENT BI-RADS 1: NEGATIVE. RECOMMENDATION: Routine annual follow-up in 1 Year Additional Recommendation none A letter with findings and recommendations will be mailed to the patient. Reading Location: [id number]
== END | disposition home or self-care (01) ==
LOC: OPBI 10:32
PROVIDERS: PCP Internal Medicine; Referring Provider Internal Medicine; Visit Provider Internal Medicine
DX: Z12.31 Encounter for screening mammogram for malignant neoplasm of breast (principal)
CPT/HCPCS: 77063; 77067